=== PATIENT | female | born 1990 | race Caucasian/White ===

== ENCOUNTER 2017-08-25 19:17 | Emergency (ER) | payer OTHER ==
[2017-08-25] MEDS ORDERED: KETOROLAC 30 MG/ML 1 ML VIAL IVP STA (20:11)
[2017-08-25] MEDS ORDERED: SODIUM CHLORIDE 0.9% 1,000 ML IV STA (20:11)
[2017-08-25] MEDS ORDERED: ONDANSETRON 4 MG/2 ML VIAL IVP STA (20:11)
[2017-08-25 20:43] LABS: Basophils % (A) 0 %; Eosinophils # (A) 0.1 k/uL (0-0.7); Eosinophils % (A) 1 %; HCT 39.8 % (34.0-46.0); HGB 13.1 gm/dL (11.4-16.0); Lymphocytes # (A) 3.2 k/uL (1.0-4.8); Lymphocytes % (A) 24 %; MCH 29.5 pg (25.0-35.0); MCV 89.4 fL (80.0-100.0); Mean Platelet Volume 7.8; Monocytes # (A) 0.8 k/uL (0-1.0); Monocytes % (A) 6 %; Neutrophils # (A) 9.2 k/uL (1.3-7.7); Neutrophils % (A) 68 %; Platelet Count 195 k/uL (150-450); RBC 4.45 m/uL (3.80-5.40); RDW 13.9 % (11.5-15.5); WBC 13.5 k/uL (3.8-10.6)
[2017-08-25 20:53] LABS: ALT 116 U/L (9-52); AST 38 U/L (14-36); Albumin 4.3 g/dL (3.5-5.0); Alkaline Phosphatase 68 U/L (38-126); Amylase 37 U/L (30-110); Anion Gap 12 mmol/L; Blood Urea Nitrogen 11 mg/dL (7-17); Calcium 9.5 mg/dL (8.4-10.2); Carbon Dioxide 27 mmol/L (22-30); Chloride 102 mmol/L (98-107); Glucose 92 mg/dL (74-99); Lipase 70 U/L (23-300); Potassium 3.5 mmol/L (3.5-5.1); Sodium 141 mmol/L (137-145); Total Bilirubin 0.6 mg/dL (0.2-1.3); Total Protein 7.3 g/dL (6.3-8.2)
--- NOTE | 2017-08-25 21:17 | ED ---
Abdominal Pain HPI - General Chief Complaint: Abdominal Pain Stated Complaint: abdominal pain Time Seen by Provider: 08/25/17 20:04 Source: patient, RN notes reviewed Mode of arrival: ambulatory Limitations: no limitations - History of Present Illness Initial Comments: This is a 27-year-old female who presents to the emergency department with chief complaint of abdominal pain. Patient states that Saturday morning she had episodes of vomiting. She states that she then developed abdominal pain. She states the abdominal pain is located in the right lower quadrant and is sharp in nature. She states that she has not had any more episodes of vomiting since Saturday but does admit to nausea. Patient states that she has had episodes like this in the past. Denies any fevers or chills, diarrhea or constipation, dysuria or hematuria, shortness of breath or chest pain. Patient denies any previous abdominal surgeries. 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 Patient states that she has no concern for , stating that her last menstrual period was 8 days ago and she finished 4 days ago. - Related Data Home Medications Medication Instructions Recorded Confirmed Ibuprofen [Motrin Ib] 400 mg PO Q6H PRN 08/25/17 08/25/17 Methadone [Dolophine] 90 mg PO QAM 08/25/17 08/25/17 Pepto-Bismol Tablets 1 tab PO ONCE PRN 08/25/17 08/25/17 Previous Rx's Medication Instructions Recorded Ciprofloxacin HCl 500 mg PO BID 7 Days #14 tab 08/25/17 metroNIDAZOLE [Flagyl] 500 mg PO TID #21 tab 08/25/17 Allergies Allergy/AdvReac Type Severity Reaction Status Date / Time No Known Allergies Allergy Verified 08/25/17 20:41 Review of Systems ROS Statement: Those systems with pertinent positive or pertinent negative responses have been documented in the HPI. ROS Other: All systems not noted in ROS Statement are negative. Past Medical History Past Medical History: No Reported History Additional Past Medical History / Comment(s): post depression History of Any Multi-Drug Resistant Organisms: None Reported Additional Past Surgical History / Comment(s): Colposcopy Past Anesthesia/Blood Transfusion Reactions: No Reported Reaction Past Psychological History: ADD/ADHD Smoking Status: Current every day smoker Past Alcohol Use History: None Reported Past Drug Use History: None Reported General Exam - General Exam Comments Initial Comments: General: Awake and alert, well-developed; in no apparent distress. HEENT: Head atraumatic, normocephalic. Pupils are equal, round and reactive to light. Extraocular movements intact. Oropharynx moist without erythema or exudate. Neck: Supple. Normal ROM. Cardiovascular: Regular rate and rhythm. No murmurs, rubs or gallops. Chest symmetrical. Respiratory: Lungs clear to auscultation bilaterally. No wheezes, rales or rhonchi. Normal respiratory effort with no use of accessory muscles. Abdomen: Soft and non-distended. There is tenderness on palpation of right lower quadrant with rebound and guarding. Normal bowel sounds in all 4 quadrants. Musculoskeletal: Normal ROM, no tenderness bilateral upper and lower extremities. Ambulating normally. Skin: [place], warm and dry without rashes or lesions. Neurological: Alert and oriented x3. CN II-XII grossly intact. Speech is fluent and answers are appropriate. No focal neuro deficits. Psychiatric: Normal mood and affect. No overt signs of depression or anxiety noted. Limitations: no limitations Course Vital Signs 08/25/17 19:59 Temperature 98.9 F Pulse Rate 82 Respiratory 20 Rate Blood Pressure 140/99 O2 Sat by Pulse 99 Oximetry Medical Decision Making - Medical Decision Making This is a 27-year-old female who presents to the emergency department with chief complaint of abdominal pain. Patient states that on Saturday she began having episodes of vomiting. Yesterday she developed a sharp pain in her right lower quadrant. On presentation to the emergency department, patient's vital signs are stable and she was afebrile. On physical examination, patient is tender with guarding and rebound of the right lower quadrant. She has a slightly elevated white blood cell count of 13.5 with a left shift. Computed tomography scan revealed evidence for mild edema of the small bowel consistent with a nonspecific enteritis. No evidence for an acute appendicitis. Patient is in no acute distress and will be discharged home. She'll be prescribed Cipro and Flagyl. Return parameters were discussed. Patient is in agreement with plan and voices understanding. All questions were answered. - Lab Data Result diagrams: 08/25/17 20:31 08/25/17 20:31 Lab Results 08/25/17 08/25/17 08/25/17 Range/Units 20:31 20:31 21:10 WBC 13.5 H (3.8-10.6) k/uL RBC 4.45 (3.80-5.40) m/uL Hgb 13.1 (11.4-16.0) gm/dL Hct 39.8 (34.0-46.0) % MCV 89.4 (80.0-100.0) fL MCH 29.5 (25.0-35.0) pg MCHC 33.0 (31.0-37.0) g/dL RDW 13.9 (11.5-15.5) % Plt Count 195 (150-450) k/uL Neutrophils % 68 % Lymphocytes % 24 % Monocytes % 6 % Eosinophils % 1 % Basophils % 0 % Neutrophils # 9.2 H (1.3-7.7) k/uL Lymphocytes # 3.2 (1.0-4.8) k/uL Monocytes # 0.8 (0-1.0) k/uL Eosinophils # 0.1 (0-0.7) k/uL Basophils # 0.0 (0-0.2) k/uL Sodium 141 (137-145) mmol/L Potassium 3.5 (3.5-5.1) mmol/L Chloride 102 (98-107) mmol/L Carbon Dioxide 27 (22-30) mmol/L Anion Gap 12 mmol/L BUN 11 (7-17) mg/dL Creatinine 0.80 (0.52-1.04) mg/dL Est GFR (MDRD) Af Amer >60 (>60 ml/min/1.73 sqM) Est GFR (MDRD) Non-Af >60 (>60 ml/min/1.73 sqM) Glucose 92 (74-99) mg/dL Calcium 9.5 (8.4-10.2) mg/dL Total Bilirubin 0.6 (0.2-1.3) mg/dL AST 38 H (14-36) U/L ALT 116 H (9-52) U/L Alkaline Phosphatase 68 (38-126) U/L Total Protein 7.3 (6.3-8.2) g/dL Albumin 4.3 (3.5-5.0) g/dL Amylase 37 (30-110) U/L Lipase 70 (23-300) U/L Urine Color Urine Appearance (Clear) Urine pH (5.0-8.0) Ur Specific [place] (1.001-1.035) Urine Protein (Negative) Urine Glucose (UA) (Negative) Urine Ketones (Negative) Urine Blood (Negative) Urine Nitrite (Negative) Urine Bilirubin (Negative) Urine Urobilinogen (<2.0) mg/dL Ur Leukocyte Esterase (Negative) Urine WBC (0-5) /hpf Ur Squamous Epith Cells (0-4) /hpf Urine Mucus (None) /hpf Urine HCG, Qual Not Detected (Not Detectd) 08/25/17 Range/Units 21:10 WBC (3.8-10.6) k/uL RBC (3.80-5.40) m/uL Hgb (11.4-16.0) gm/dL Hct (34.0-46.0) % MCV (80.0-100.0) fL MCH (25.0-35.0) pg MCHC (31.0-37.0) g/dL RDW (11.5-15.5) % Plt Count (150-450) k/uL Neutrophils % % Lymphocytes % % Monocytes % % Eosinophils % % Basophils % % Neutrophils # (1.3-7.7) k/uL Lymphocytes # (1.0-4.8) k/uL Monocytes # (0-1.0) k/uL Eosinophils # (0-0.7) k/uL Basophils # (0-0.2) k/uL Sodium (137-145) mmol/L Potassium (3.5-5.1) mmol/L Chloride (98-107) mmol/L Carbon Dioxide (22-30) mmol/L Anion Gap mmol/L BUN (7-17) mg/dL Creatinine (0.52-1.04) mg/dL Est GFR (MDRD) Af Amer (>60 ml/min/1.73 sqM) Est GFR (MDRD) Non-Af (>60 ml/min/1.73 sqM) Glucose (74-99) mg/dL Calcium (8.4-10.2) mg/dL Total Bilirubin (0.2-1.3) mg/dL AST (14-36) U/L ALT (9-52) U/L Alkaline Phosphatase (38-126) U/L Total Protein (6.3-8.2) g/dL Albumin (3.5-5.0) g/dL Amylase (30-110) U/L Lipase (23-300) U/L Urine Color Yellow Urine Appearance Clear (Clear) Urine pH 5.5 (5.0-8.0) Ur Specific [place] 1.023 (1.001-1.035) Urine Protein Negative (Negative) Urine Glucose (UA) Negative (Negative) Urine Ketones Negative (Negative) Urine Blood Negative (Negative) Urine Nitrite Negative (Negative) Urine Bilirubin Negative (Negative) Urine Urobilinogen 4.0 (<2.0) mg/dL Ur Leukocyte Esterase Trace H (Negative) Urine WBC 2 (0-5) /hpf Ur Squamous Epith Cells 2 (0-4) /hpf Urine Mucus Many H (None) /hpf Urine HCG, Qual (Not Detectd) - Radiology Data Radiology results: report reviewed X-ray KUB impression: Nonacute abdomen. CT abdomen and pelvis with contrast impression: There is distal small bowel edema consistent with nonspecific enteritis. This could relate to Crohn's disease. Normal appendix. Mild free fluid in the pelvis. Normal posterior appendix. Disposition Clinical Impression: Enteritis Disposition: HOME SELF-CARE Condition: Good Instructions: Enteritis (ED) Additional Instructions: Please take medications as prescribed. Please follow up with primary care provider within 1-2 days. Return to emergency department if symptoms should worsen or any concerns arise. Prescriptions: Ciprofloxacin HCl 500 mg PO BID 7 Days #14 tab metroNIDAZOLE [Flagyl] 500 mg PO TID #21 tab Referrals: None,Stated [Primary Care Provider] - 1-2 days Time of Disposition: 23:28
[2017-08-25 21:23] LABS: Appearance,Urine Clear (Clear); Bilirubin,Urine Negative (Negative); Blood,Urine Negative (Negative); Color,Urine Yellow; Glucose,Urine (UA) Negative (Negative); Ketones,Urine Negative (Negative); Leukocyte Esterase,Urine Trace (Negative); Mucus,Urine Many /hpf; PH, Urine 5.5 (5.0-8.0); Protein,Urine Negative (Negative); Specific Gravity,Urine 1.023 (1.001-1.035); Squamous Epithelial Cell,Urine 2 /hpf (0-4); WBC,Urine 2 /hpf (0-5)
--- NOTE | 2017-08-25 21:55 | XR ---
EXAMINATION TYPE: XR KUB DATE OF EXAM: 08/25/2017 COMPARISON: NONE HISTORY: Vomiting TECHNIQUE: 2 views FINDINGS: There is no sign of intestinal obstruction or pneumoperitoneum. Fecal pattern is normal. Shannon ng bases are clear. There are no pathologic calcifications over the kidneys. Bony structures appear i ntact. IMPRESSION: Nonacute abdomen.
[2017-08-25] MEDS ORDERED: RX INFO: IV CONTRAST WAS GIVEN 1 EACH MISC MISCELLANE PRN (22:00)
[2017-08-25] MEDS ORDERED: ACETAMINOPHEN IV (For NPO) 1,000 MG in EMPTY BAG 1 BAG IVPB STA (22:24)
--- NOTE | 2017-08-25 22:52 | CT ---
EXAMINATION TYPE: CT abdomen pelvis w con DATE OF EXAM: 08/25/2017 COMPARISON: NONE HISTORY: No prior, RLQ pain and vomiting CT DLP: 440.80 mGycm Automated exposure control for dose reduction was used. TECHNIQUE: Helical acquisition of images was performed from the lung bases through the pelvis. CONTRAST: Performed without Oral Contrast and with IV Contrast, patient injected with 100 mL of Omnipaque 300. FINDINGS: Lung bases are clear. There is no pleural effusion. Heart size is normal. Liver spleen pancreas gallbladder appear normal. Bile ducts are not dilated. There is no adrenal mass. Kidneys have normal size and contour. There is no hydronephrosis. Ureters a re not dilated. There is mild free fluid in the pelvis. I see no sign of a thickened appendix. Appendix appears withi n normal limits. There is mild edema involving a distal loop of small bowel in the right lower quadrant. There is mild wall thickening. There is no evidence of a bowel obstruction. Bladder distends smoothly. Uterus is anteverted. Fecal pattern appears normal. I see no bony destruct seda process. IMPRESSION: THERE IS DISTAL SMALL BOWEL EDEMA CONSISTENT WITH NONSPECIFIC ENTERITIS. THIS COULD RELATE TO CROHN'S DISEASE. NORMAL APPENDIX. MILD FREE FLUID IN THE PELVIS. NORMAL POSTERIOR APPENDIX.
[2017-08-25 23:29] VITALS: BP 115/57; PULSE 68; RESP 18; TEMP 97.4
== END 2017-08-25 23:44 | disposition home or self-care (01) ==
LOC: EC 19:17
DX: K52.9 Noninfective gastroenteritis and colitis, unspecified (principal); D72.829 Elevated white blood cell count, unspecified; F17.200 Nicotine dependence, unspecified, uncomplicated; Z79.891 Long term (current) use of opiate analgesic
CPT/HCPCS: 36415; 80053; 82150; 83690; 85025; 81001; 81025; 87086; 74018; 74177; 99284; 96365; 96375 ×2; 96361; J2405; J1885; Q9967; J0131

== ENCOUNTER 2018-06-09 11:13 | Inpatient (IN) | payer OTHER ==
[2018-06-09] MEDS ORDERED: METHYLERGONOVINE 0.2 MG/ML 1 ML AMP IM PRN (11:42)
[2018-06-09] MEDS ORDERED: TERBUTALINE 1 MG/ML VIAL SQ PRN (11:42)
[2018-06-09] MEDS ORDERED: CARBOPROST TROMETHAMINE 250 MCG/ML 1 ML AMP IM PRN (11:42)
[2018-06-09] MEDS ORDERED: LIDOCAINE 0.5% (PF) 5 MG/ML (50 ML SDV) SQ PRN (11:42)
[2018-06-09] MEDS ORDERED: OXYTOCIN 10 UNIT/ML 1 ML VIAL IM PRN (11:42)
[2018-06-09] MEDS ORDERED: LACTATED RINGERS 1,000 ML IV SCH (11:45)
[2018-06-09 12:06] VITALS: BMI 29.2
[2018-06-09 12:19] LABS: Basophils % (A) 0 %; Eosinophils # (A) 0.1 k/uL (0-0.7); Eosinophils % (A) 1 %; HCT 32.3 % (34.0-46.0); HGB 10.5 gm/dL (11.4-16.0); Lymphocytes # (A) 1.7 k/uL (1.0-4.8); Lymphocytes % (A) 14 %; MCH 29.8 pg (25.0-35.0); MCHC 32.5 g/dL (31.0-37.0); MCV 91.7 fL (80.0-100.0); Monocytes # (A) 0.5 k/uL (0-1.0); Monocytes % (A) 4 %; Neutrophils # (A) 9.6 k/uL (1.3-7.7); Neutrophils % (A) 79 %; Platelet Count 228 k/uL (150-450); RBC 3.53 m/uL (3.80-5.40); RDW 15.1 % (11.5-15.5); WBC 12.2 k/uL (3.8-10.6)
[2018-06-09] MEDS ORDERED: LANOLIN CREAM 5 GM TUBE TOPICAL PRN (13:02)
[2018-06-09] MEDS ORDERED: diphenhydrAMINE 50 MG/ML 1 ML VIAL IVP PRN ×2 (13:02)
[2018-06-09] MEDS ORDERED: WITCH HAZEL 1 EACH MED..PAD TOPICAL PRN (13:02)
[2018-06-09] MEDS ORDERED: HYDROCORTISONE 2.5% RECTAL CREAM 30 GM TUBE RECTAL PRN (13:02)
[2018-06-09] MEDS ORDERED: BENZOCAINE/MENTHOL SPRAY 1 GM/SPRAY AEROSOL TOPICAL PRN (13:02)
[2018-06-09] MEDS ORDERED: diphenhydrAMINE 25 MG CAP PO PRN (13:02)
[2018-06-09] MEDS ORDERED: diphenhydrAMINE 50 MG CAP PO PRN (13:02)
--- NOTE | 2018-06-09 13:02 | P.HPOB ---
History of Present Illness H&P Date: 06/09/18 Chief Complaint: IUP @ 38 5/7 weeks, active labor This is a 28yo that presents with c/o ctx that started this am around 4 am, and are now 3-5 minutes apart. she denies LOF,VB, and notes good FM. she did have late care, but has been good at coming for appointment since she started care with myself, just prior to 28 weeks of gestation.. she is on methadone 100mg daily. she has been consistent with this dose. blood work revealed a blood type of B+, rubella immune, hepatitis B surface antigen negative, HIV negative, RPR nonreactive, GBS negative. Review of Systems Constitutional: Denies chills, Denies fatigue, Denies fever Ears, nose, mouth and throat: Denies headache Cardiovascular: Reports edema Respiratory: Denies cough, Denies dyspnea Gastrointestinal: Denies constipation, Denies diarrhea, Denies nausea, Denies vomiting Genitourinary: Reports Past Medical History Past Medical History: No Reported History Additional Past Medical History / Comment(s): post depression History of Any Multi-Drug Resistant Organisms: None Reported Additional Past Surgical History / Comment(s): Colposcopy Past Anesthesia/Blood Transfusion Reactions: No Reported Reaction Smoking Status: Current every day smoker Medications and Allergies Home Medications Medication Instructions Recorded Confirmed Type Methadone [Dolophine] 100 mg PO QAM 08/25/17 06/03/18 History Allergies Allergy/AdvReac Type Severity Reaction Status Date / Time No Known Allergies Allergy Verified 06/09/18 11:42 Exam Osteopathic Statement: *. No significant issues noted on an osteopathic structural exam other than those noted in the History and Physical/Consult. Intake and Output 06/08/18 06/09/18 06/09/18 22:59 06:59 14:59 Other: Weight 77.111 kg targeted physical exam done on this date this is a well nourished well developed female in active labor. non labored breathing is noted, but is breathing through ctx. heart has a regular rate and rhythming. abdomen is gravid and appropriate for GA. cervix is 8/100/-1 intact membranes. FHTs are reactive and she is fabienne every 3 mins Results Result Diagrams: 06/09/18 11:30 Assessment and Plan (1) Term Current Visit: Yes Status: Acute Code(s): Z34.80 - ENCOUNTER FOR SUPRVSN OF NORMAL , UNSP TRIMESTER SNOMED Code(s): 89447143 (2) Rh negative status during Current Visit: Yes Status: Acute Code(s): O09.899 - SUPERVISION OF OTHER HIGH RISK PREGNANCIES, UNSP TRIMESTER; Z67.91 - UNSPECIFIED BLOOD TYPE, RH NEGATIVE SNOMED Code(s): 111000224 (3) Methadone dependence Current Visit: Yes Status: Acute Code(s): F11.20 - OPIOID DEPENDENCE, UNCOMPLICATED SNOMED Code(s): 598652706 (4) Limited care Current Visit: Yes Status: Acute Code(s): O09.30 - SUPRVSN OF PREG W INSUFFICIENT ANTENAT CARE, UNSP TRIMESTER SNOMED Code(s): 681244096 Plan: we will admit to labor and delivery for expectant management. Given her advanced cervical dilation on admission anticipate spontaneous vaginal delivery quickly.
--- NOTE | 2018-06-09 13:07 | P.PROBDLV ---
Vaginal Delivery Note - . Vaginal Delivery Note: this is a very pleasant 28-year-old 5 para 3013 that presented to labor and delivery at 38-3/7 weeks with complaints of regular painful contractions that started early this morning. Patient denied vaginal bleeding, loss of fluid at that time. Patient was noted to be 8 cm on initial cervical exam. Patient was admitted to labor and delivery progressed to complete began pushing and had a normal spontaneous vaginal delivery of a viable female at 1232 , weight of 6 lbs. 12 oz. with Apgars of 7 and 9 at one and 5 minutes respectively. The placenta was then doubly clamped and cut a scant amount of cord blood was taken, the placenta was then delivered spontaneously intact with a three-vessel cord. On inspection the patient's vaginal vault no lacerations were noted. infant was taken to special care nursery for retractions and assessment. Next Patient tolerated delivery well and are resting comfortably.
[2018-06-09] MEDS ORDERED: OXYTOCIN 20 UNITS/1000 ML NS 1,000 ML IV SCH (13:15)
[2018-06-09] MEDS: IBUPROFEN 600 MG TAB PO PRN ×2 (13:30→19:31)
[2018-06-09] MEDS: ACETAMINOPHEN TAB 325 MG TAB PO PRN ×2 (16:13→23:49)
[2018-06-09] MEDS: SENNOSIDES-DOCUSATE SODIUM 1 EACH TAB PO SCH (21:14)
[2018-06-09] MEDS: SIMETHICONE 80 MG CHEWABLE PO PRN (21:15)
[2018-06-10] MEDS: IBUPROFEN 600 MG TAB PO PRN ×3 (06:40→20:11)
[2018-06-10 07:00] LABS: Basophils % (A) 0 %; Eosinophils # (A) 0.1 k/uL (0-0.7); Eosinophils % (A) 1 %; HCT 28.3 % (34.0-46.0); HGB 9.2 gm/dL (11.4-16.0); Lymphocytes # (A) 2.5 k/uL (1.0-4.8); Lymphocytes % (A) 28 %; MCH 30.2 pg (25.0-35.0); MCHC 32.7 g/dL (31.0-37.0); MCV 92.4 fL (80.0-100.0); Monocytes # (A) 0.6 k/uL (0-1.0); Monocytes % (A) 6 %; Neutrophils # (A) 5.7 k/uL (1.3-7.7); Neutrophils % (A) 63 %; Platelet Count 164 k/uL (150-450); RBC 3.06 m/uL (3.80-5.40); RDW 14.8 % (11.5-15.5)
--- NOTE | 2018-06-10 08:54 | P.PNOBGVD ---
Subjective - Subjective Principal diagnosis: PPD 1 Interval history: Patient has done well overnight. She is ambulating and voiding without difficulty she is tolerating a regular diet without nausea or vomiting. She denies concerns this morning. Patient reports: Reports appetite normal, Reports voiding normally, Reports pain well controlled, Reports ambulating normally [place]: doing well (in the nursery, ), bottle feeding Objective - Latest Vital Signs Latest vital signs: Vital Signs Temp Pulse Resp BP Pulse Ox 06/10/18 08:00 97.5 F L 66 15 148/78 06/10/18 00:00 98.1 F 67 16 133/87 06/09/18 20:00 98.1 F 65 16 132/71 06/09/18 16:00 98.2 F 70 16 119/73 06/09/18 14:52 72 16 123/64 06/09/18 14:22 76 16 117/64 06/09/18 13:52 96.8 F L 74 16 101/52 06/09/18 13:37 51 L 16 124/64 06/09/18 13:22 69 16 113/63 100 06/09/18 13:07 86 16 113/61 06/09/18 12:52 96.1 F L 87 16 118/57 100 06/09/18 11:39 97.2 F L 72 16 134/64 100 Intake and Output 06/09/18 06/10/18 06/10/18 22:59 06:59 14:59 Other: # Voids 1 1 - Exam Extremities: Present: normal Abdomen: Present: normal appearance, soft Uterus: Present: normal, firm - Labs Labs: Abnormal Lab Results - Last 24 Hours (Table) 06/09/18 06/10/18 Range/Units 11:30 06:33 WBC 12.2 H (3.8-10.6) k/uL RBC 3.53 L 3.06 L (3.80-5.40) m/uL Hgb 10.5 L 9.2 L (11.4-16.0) gm/dL Hct 32.3 L 28.3 L (34.0-46.0) % Neutrophils # 9.6 H (1.3-7.7) k/uL Assessment and Plan (1) Term Current Visit: Yes Status: Acute Code(s): Z34.80 - ENCOUNTER FOR SUPRVSN OF NORMAL , UNSP TRIMESTER SNOMED Code(s): 50879137 (2) Rh negative status during Current Visit: Yes Status: Acute Code(s): O09.899 - SUPERVISION OF OTHER HIGH RISK PREGNANCIES, UNSP TRIMESTER; Z67.91 - UNSPECIFIED BLOOD TYPE, RH NEGATIVE SNOMED Code(s): 652658520 (3) Methadone dependence Current Visit: Yes Status: Acute Code(s): F11.20 - OPIOID DEPENDENCE, UNCOMPLICATED SNOMED Code(s): 086122752 (4) Limited care Current Visit: Yes Status: Acute Code(s): O09.30 - SUPRVSN OF PREG W INSUFFICIENT ANTENAT CARE, UNSP TRIMESTER SNOMED Code(s): 461799891 (5) Status post normal vaginal delivery Current Visit: Yes Status: Acute Code(s): FUW3849 - SNOMED Code(s): 454753198 Plan: We'll continue routine care.
[2018-06-10] MEDS ORDERED: METHADONE 5 MG TAB PO SCH (09:00)
[2018-06-10] MEDS: METHADONE 10 MG TAB PO SCH (09:09)
[2018-06-10] MEDS: SENNOSIDES-DOCUSATE SODIUM 1 EACH TAB PO SCH ×2 (10:34→20:12)
[2018-06-10] MEDS: ACETAMINOPHEN TAB 325 MG TAB PO PRN ×2 (17:01→23:01)
[2018-06-10] MEDS: SIMETHICONE 80 MG CHEWABLE PO PRN (17:01)
[2018-06-11] MEDS: IBUPROFEN 600 MG TAB PO PRN (08:08)
[2018-06-11] MEDS: SENNOSIDES-DOCUSATE SODIUM 1 EACH TAB PO SCH (08:09)
[2018-06-11] MEDS: METHADONE 10 MG TAB PO SCH (09:05)
[2018-06-11 09:20] VITALS: BP 128/70; PULSE 62; RESP 18; TEMP 98.1
--- NOTE | 2018-06-11 12:25 | P.DS ---
Providers Date of admission: 06/09/18 11:13 Expected date of discharge: 06/11/18 Attending physician: Madison Bauer Primary care physician: Stated None - Discharge Diagnosis(es) (1) Term Current Visit: Yes Status: Acute (2) Rh negative status during Current Visit: Yes Status: Acute (3) Methadone dependence Current Visit: Yes Status: Acute (4) Limited care Current Visit: Yes Status: Acute (5) Status post normal vaginal delivery Current Visit: Yes Status: Acute Hospital Course: This is a very pleasant 28-year-old 5 para 2113 at 38-3/7 weeks that presented to labor and delivery in active labor. Patient was noted to be 8 cm on admission. Patient progressed quickly to complete began pushing and had a normal spontaneous vaginal delivery of a viable female infant at 1232, weight of 6 lbs. 12 oz. with Apgars of 7 and 9 at one and 5 minutes respectively. Patient's course is complicated by methadone use and late presentation for care just prior to 28 weeks. Patient has a history of preeclampsia in her prior pregnancies but blood pressures remained stable with this . Patient's course has been uneventful. She is ambulating and voiding without difficulty. She is tolerating a regular diet without nausea or vomiting. She denies any concerns and is ready for discharge home on this day #2. Patient Condition at Discharge: Good Plan - Discharge Summary Discharge Rx Participant: No New Discharge Prescriptions: No Action Methadone [Dolophine] 100 mg PO QAM Discharge Medication List Methadone [Dolophine] 100 mg PO QAM 08/25/17 [History] Follow up Appointment(s)/Referral(s): Madison Bauer DO [Doctor of Osteopathic Medicine] - 4 Weeks Patient Instructions/Handouts: Vaginal Delivery (DC), Vaginal Delivery (GEN)
== END 2018-06-11 17:52 | disposition home or self-care (01) | DRG 806 ==
LOC: 4FBP 11:13
PROVIDERS: ADMIT Obstetrics & Gynecology Obstetrics; ATTEND Obstetrics & Gynecology Obstetrics
PROC: 10E0XZZ Delivery of Products of Conception, External Approach (ICD-10-PCS; principal; 2018-06-09)
PROC: 10907ZC Drainage of Amniotic Fluid, Therapeutic from Products of Conception, Via Natural or Artificial Opening (ICD-10-PCS; principal; 2018-06-09)
DX: O99.324 Drug use complicating childbirth (principal); F11.20 Opioid dependence, uncomplicated; Z37.0 Single live birth; O99.334 Smoking (tobacco) complicating childbirth; F17.200 Nicotine dependence, unspecified, uncomplicated; Z3A.38 38 weeks gestation of pregnancy; O26.893 Other specified pregnancy related conditions, third trimester; Z67.91 Unspecified blood type, Rh negative
CPT/HCPCS: 85025; 86850; 86900; 86901; 88307

== ENCOUNTER 2018-06-29 15:05 | Emergency (ER) | payer OTHER ==
[2018-06-29 15:09] VITALS: BP 132/69; PULSE 77; RESP 20; TEMP 97.6
[2018-06-29] MEDS ORDERED: IBUPROFEN 600 MG TAB PO STA (15:31)
--- NOTE | 2018-06-29 15:32 | ED ---
General Adult HPI - General Chief complaint: Dental/Oral Stated complaint: tooth ache Time Seen by Provider: 06/29/18 15:14 Source: patient, RN notes reviewed Mode of arrival: ambulatory Limitations: no limitations - History of Present Illness Initial comments: 28-year-old female presents to the emergency department for a chief complaint of dental pain. Patient states his pain has been on and off for the past few months. She states the pain worsened in the past couple days. Patient states she feels as if the left side of her face is minimally swollen. Patient states she has seen a dentist in the recommend removing all of her teeth putting in dentures but she refused. She states she has another appointment in the next 2 weeks. She denies fevers or chills. She denies subungual swelling or pain. She denies any difficulty swallowing or handling secretions. Patient has no other complaints at this time including shortness of breath, chest pain, abdominal pain, nausea or vomiting, headache, or visual changes. - Related Data Home Medications Medication Instructions Recorded Confirmed Methadone [Dolophine] 100 mg PO QAM 08/25/17 06/03/18 Previous Rx's Medication Instructions Recorded Ibuprofen [Motrin] 600 mg PO Q8HR PRN #20 tab 06/29/18 Penicillin V Potassium [Pen Vee K] 500 mg PO Q6H 10 Days tablet 06/29/18 Allergies Allergy/AdvReac Type Severity Reaction Status Date / Time No Known Allergies Allergy Verified 06/29/18 15:09 Review of Systems ROS Statement: Those systems with pertinent positive or pertinent negative responses have been documented in the HPI. ROS Other: All systems not noted in ROS Statement are negative. Past Medical History Past Medical History: No Reported History Additional Past Medical History / Comment(s): post depression History of Any Multi-Drug Resistant Organisms: None Reported Additional Past Surgical History / Comment(s): Colposcopy Past Anesthesia/Blood Transfusion Reactions: No Reported Reaction Past Psychological History: ADD/ADHD Smoking Status: Current every day smoker Past Alcohol Use History: None Reported Past Drug Use History: None Reported General Exam Limitations: no limitations General appearance: alert, in no apparent distress Head exam: Present: atraumatic, normocephalic, normal inspection Eye exam: Present: normal appearance, PERRL, EOMI. Absent: scleral icterus, conjunctival injection, periorbital swelling ENT exam: Present: mucous membranes moist. Absent: normal oropharynx (Poor dentition. Patient has a fractured tooth 13. No abscess over tooth 13 or surrounding teeth. Patient also has a small abscess over tooth 9 as well as a fracture in tooth 9.) Neck exam: Present: normal inspection, full ROM. Absent: tenderness, meningismus, lymphadenopathy, other (No sublingual edema noted, full range of motion of mandible) Respiratory exam: Present: normal lung sounds bilaterally. Absent: respiratory distress, wheezes, rales, rhonchi, stridor Cardiovascular Exam: Present: regular rate, normal rhythm, normal heart sounds. Absent: systolic murmur, diastolic murmur, rubs, gallop, clicks Neurological exam: Present: alert, oriented X3, CN II-XII intact Psychiatric exam: Present: normal affect, normal mood Course Vital Signs 06/29/18 15:07 Temperature 97.6 F Pulse Rate 77 Respiratory 20 Rate Blood Pressure 132/69 O2 Sat by Pulse 100 Oximetry Medical Decision Making - Medical Decision Making 28-year-old female presents for dental pain. This pain has been intermittent over the past few months but worsened in the past several days. On exam patient does have a fracture of tooth 8 and 13. There is a small abscess above tooth 18. This was drained with an 18-gauge needle. No significant facial edema noted. Patient was given penicillin. Patient does have an appointment in the next 2 weeks with the dentist. She will try to call to get in earlier. She will return here if she has any worsening symptoms. Disposition Clinical Impression: Dental abscess Disposition: HOME SELF-CARE Condition: Good Instructions: Dental Abscess (ED) Additional Instructions: Take Motrin and Tylenol for pain. Use ice over the affected area for discomfort. Please take antibiotic as directed. Please follow-up with dentist as soon as possible. Return if you have any worsening symptoms. Prescriptions: Ibuprofen [Motrin] 600 mg PO Q8HR PRN #20 tab PRN Reason: Pain Penicillin V Potassium [Pen Vee K] 500 mg PO Q6H 10 Days tablet Is patient prescribed a controlled substance at d/c from ED?: No Referrals: Prabha Tang MD [STAFF PHYSICIAN] - 1-2 days Time of Disposition: 15:31
== END 2018-06-29 15:47 | disposition home or self-care (01) ==
LOC: EC 15:05
DX: K04.7 Periapical abscess without sinus (principal); S02.5XXA Fracture of tooth (traumatic), initial encounter for closed fracture; F17.200 Nicotine dependence, unspecified, uncomplicated; Z79.891 Long term (current) use of opiate analgesic; X58.XXXA Exposure to other specified factors, initial encounter
CPT/HCPCS: 41800; 99282

== ENCOUNTER 2020-07-30 00:44 | Inpatient (IN) | payer OTHER ==
[2020-07-30] MEDS ORDERED: SODIUM CHLORIDE 0.9% 1,000 ML IV STA ×2 (01:21)
[2020-07-30] MEDS ORDERED: MORPHINE SULFATE 4 MG/ML SYRINGE IVP STA (01:23)
[2020-07-30] MEDS ORDERED: ONDANSETRON 4 MG/2 ML VIAL IVP STA (01:23)
--- NOTE | 2020-07-30 01:33 | ED ---
General Adult HPI - General Source: patient, EMS Mode of arrival: EMS Limitations: no limitations <Zoya Ibrahim - Last Filed: 07/30/20 03:32> <Himanshu Bach - Last Filed: 08/03/20 07:50> - General Chief complaint: Chest Pain Stated complaint: R side chest pain Time Seen by Provider: 07/30/20 00:50 - History of Present Illness Initial comments: 30 year-old pleasant female patient with past history significant for IV drug use, presents to the emergency department for evaluation of pain to the right side of her chest with breathing. Patient states she has been sick for the last 4 days. Patient states this started with a migraine headache which turned into 2 days of nausea and vomiting with diarrhea. She reports body aches and chills for those two days. Did not check her temperature but believes she had a fever. States that for the last couple of days she has been having a severe sharp pain to the right chest whenever she takes a deep breath. Denies any cough. State she has been unable to get out of bed for the last four days. States she has not been eating or drinking. Reports mild swelling to the lower extremities. Denies any rash. Denies chance of . She also reports dark smelly urine. Patient denies any recent rash, abdominal pain, back pain, numbness, tingling, dizziness, weakness, headache, visual changes, or any other complaints. (Zoya Ibrahim) - Related Data Home Medications Medication Instructions Recorded Confirmed Buprenorphine HCl/Naloxone HCl 1 film SL BID 07/30/20 07/30/20 [Zubsolv 5.7-1.4 mg Tablet Sl] Allergies Allergy/AdvReac Type Severity Reaction Status Date / Time No Known Allergies Allergy Verified 07/30/20 08:19 Review of Systems ROS Other: All systems not noted in ROS Statement are negative. <Zoya Ibrahim - Last Filed: 07/30/20 03:32> ROS Other: All systems not noted in ROS Statement are negative. <Himanshu Bach - Last Filed: 08/03/20 07:50> ROS Statement: Those systems with pertinent positive or pertinent negative responses have been documented in the HPI. Past Medical History Past Medical History: No Reported History, Hypertension Additional Past Medical History / Comment(s): post depression History of Any Multi-Drug Resistant Organisms: None Reported Additional Past Surgical History / Comment(s): Colposcopy Past Anesthesia/Blood Transfusion Reactions: No Reported Reaction Past Psychological History: ADD/ADHD, Anxiety Smoking Status: Current every day smoker Past Alcohol Use History: None Reported Past Drug Use History: Heroin <Zoya Ibrahim M - Last Filed: 07/30/20 03:32> General Exam Limitations: no limitations General appearance: alert, in no apparent distress, other (This is a well developed, well-nourished adult female patient in mild distress related to pain. ) Respiratory exam: Present: normal lung sounds bilaterally, respiratory distress (tachypnea, short gasping breaths). Absent: wheezes, rales, rhonchi, stridor Cardiovascular Exam: Present: regular rate, normal rhythm, normal heart sounds. Absent: systolic murmur, diastolic murmur, rubs, gallop, clicks GI/Abdominal exam: Present: soft, normal bowel sounds. Absent: distended, tenderness, guarding, rebound, rigid Extremities exam: Present: other (Track cordero and ecchymosis noted over varying areas of her arms. ) Neurological exam: Present: alert, oriented X3, CN II-XII intact Psychiatric exam: Present: normal affect, normal mood Skin exam: Present: warm, dry, intact, normal color. Absent: rash <Zoya Ibrahim M - Last Filed: 07/30/20 03:32> Course Vital Signs 07/30/20 07/30/20 07/30/20 00:46 01:55 02:25 Temperature 99.3 F 103.0 F H Pulse Rate 84 87 83 Respiratory 20 40 H 45 H Rate Blood Pressure 92/53 88/45 94/48 O2 Sat by Pulse 99 100 99 Oximetry 07/30/20 07/30/20 07/30/20 02:56 03:36 04:19 Temperature 103.2 F H 101.1 F H 99.9 F H Pulse Rate 87 86 84 Respiratory 45 H 42 H 46 H Rate Blood Pressure 94/40 95/55 84/42 O2 Sat by Pulse 97 95 93 L Oximetry 07/30/20 07/30/20 07/30/20 05:05 06:15 06:39 Temperature 99.1 F Pulse Rate 77 75 78 Respiratory 36 H 24 28 H Rate Blood Pressure 88/40 82/50 85/51 O2 Sat by Pulse 93 L 94 L 95 Oximetry 07/30/20 07/30/20 07/30/20 06:46 06:56 07:00 Temperature Pulse Rate 80 75 77 Respiratory 30 H 24 18 Rate Blood Pressure 91/49 100/47 100/47 O2 Sat by Pulse 95 95 95 Oximetry 07/30/20 07/30/20 07/30/20 07:10 07:20 07:30 Temperature Pulse Rate 76 75 76 Respiratory 18 31 H 27 H Rate Blood Pressure 98/50 89/51 90/48 O2 Sat by Pulse 100 98 Oximetry 07/30/20 07/30/20 07/30/20 07:33 07:40 07:50 Temperature Pulse Rate 75 71 71 Respiratory 24 22 31 H Rate Blood Pressure 90/41 83/42 83/43 O2 Sat by Pulse 100 Oximetry 07/30/20 07/30/20 07/30/20 08:00 08:04 08:18 Temperature 99.1 F Pulse Rate 74 77 Respiratory 18 18 20 Rate Blood Pressure 87/55 O2 Sat by Pulse 98 96 Oximetry 07/30/20 07/30/20 07/30/20 08:30 09:00 09:30 Temperature Pulse Rate 79 74 77 Respiratory 17 18 29 H Rate Blood Pressure 100/53 110/66 111/57 O2 Sat by Pulse 99 95 95 Oximetry 07/30/20 07/30/20 07/30/20 09:31 09:45 10:00 Temperature Pulse Rate 80 90 105 H Respiratory 16 32 H 34 H Rate Blood Pressure 112/58 114/53 104/53 O2 Sat by Pulse 95 93 L 92 L Oximetry Procedures <Zoya Ibrahim - Last Filed: 07/30/20 03:32> - Central Line Placement Right SC Consent Obtained: written consent Patient Placed on Monitor/Pulse Ox: Yes Prep: mask, gown, gloves Central Line Prep: Chlorhexidine scrub Local Anesthesia Used: Lidocaine 1% Central Line Lumen Inserted: triple Bloods Obtained for Lab: Yes Central Line Position: good blood return, all ports aspirated, flushed, capped, sutured in place with nylon Dressing Applied: Tegaderm Patient Tolerated Procedure: well, no complications Complications: none <Himanshu Bach - Last Filed: 08/03/20 07:50> - Procedures Initial comment: Performed ultrasound guided IV insertion to the right upper arm. Patient tolerated procedure well. There was good blood return, flushed easily. No pain. Failed attempt to the left upper arm. (Zoya Ibrahim) Medical Decision Making - Lab Data Result diagrams: 07/30/20 02:05 07/30/20 02:05 - EKG Data -: EKG Interpreted by Me - Radiology Data Radiology results: report reviewed, image reviewed <Zoya Ibrahim - Last Filed: 07/30/20 03:32> - Lab Data Result diagrams: 08/03/20 03:30 08/03/20 03:30 <Himanshu Bach - Last Filed: 08/03/20 07:50> - Medical Decision Making 30-year-old female patient presents to the emergency department today for evaluation of right-sided chest pain, shortness of breath, painful breathing. Upon initial evaluation patient appears pale, is taking short gasping breaths, and seems quite uncomfortable with breathing. BP initially low in the 90s systolic. Oxygen saturation is 99% on room air. She is not tachycardic. Labs are reveiewed and show wbc count of 11.5, neutrophils of 10.2, BUN elevated 27, Creatinine 1.35. COVID-[address] chest shows bilateral pneumonia with possible cavitary lesions and bolus changes. His concerning for septic emboli versus atypical bacterial pneumonia versus atypical viral pneumonia versis COVID-19 pneumonia though her COVID test was negative and she has elevated WBC and neutrophil count. patient was started on Zosyn and vancomycin. We will order pain medications. We will consult infectious disease, pulmonology, and cardiology. Trops will be repeated. I did discuss findings and results with the patient. She is agreeable for admission. Case was discussed in detail with my attending Dr. Bach. (Zoya Ibrahim) I saw this patient in conjunction with the physician compliance assistant. I performed independent history and physical exam. Agree with case management. In addition, I placed a central line to facilitate administration of multiple medications including pressors, IV fluids, and antibiotics. Case was discussed by myself with the cloth bleaching range tender as well as cardiothoracic team. (Himanshu Bach) - Lab Data Lab Results 07/30/20 07/30/20 07/30/20 Range/Units 02:05 02:05 02:05 WBC 11.5 H (3.8-10.6) k/uL RBC 3.89 (3.80-5.40) m/uL Hgb 11.2 L (11.4-16.0) gm/dL Hct 33.7 L (34.0-46.0) % MCV 86.5 (80.0-100.0) fL MCH 28.8 (25.0-35.0) pg MCHC 33.3 (31.0-37.0) g/dL RDW 13.3 (11.5-15.5) % Plt Count 50 L (150-450) k/uL MPV 11.2 Neutrophils % 88 % Lymphocytes % 5 % Monocytes % 4 % Eosinophils % 1 % Basophils % 0 % Neutrophils # 10.2 H (1.3-7.7) k/uL Lymphocytes # 0.6 L (1.0-4.8) k/uL Monocytes # 0.4 (0-1.0) k/uL Eosinophils # 0.1 (0-0.7) k/uL Basophils # 0.0 (0-0.2) k/uL Manual Slide Review Performed PT 11.5 (9.0-12.0) sec INR 1.1 (<1.2) APTT 23.8 (22.0-30.0) sec Sodium 132 L (137-145) mmol/L Potassium 3.8 (3.5-5.1) mmol/L Chloride 96 L (98-107) mmol/L Carbon Dioxide 27 (22-30) mmol/L Anion Gap 9 mmol/L BUN 27 H (7-17) mg/dL Creatinine 1.35 H (0.52-1.04) mg/dL Est GFR (CKD-EPI)AfAm 61 (>60 ml/min/1.73 sqM) Est GFR (CKD-EPI)NonAf 53 (>60 ml/min/1.73 sqM) Glucose 114 H (74-99) mg/dL Plasma Lactic Acid Mekhi (0.7-2.0) mmol/L Calcium 8.6 (8.4-10.2) mg/dL Magnesium 1.8 (1.6-2.3) mg/dL Total Bilirubin 1.1 (0.2-1.3) mg/dL AST 36 (14-36) U/L ALT 26 (4-34) U/L Alkaline Phosphatase 103 (38-126) U/L Troponin I (0.000-0.034) ng/mL Total Protein 6.3 (6.3-8.2) g/dL Albumin 3.0 L (3.5-5.0) g/dL Urine HCG, Qual (Not Detectd) Coronavirus (PCR) (Not Detectd) 07/30/20 07/30/20 07/30/20 Range/Units 02:05 02:05 02:05 WBC (3.8-10.6) k/uL RBC (3.80-5.40) m/uL Hgb (11.4-16.0) gm/dL Hct (34.0-46.0) % MCV (80.0-100.0) fL MCH (25.0-35.0) pg MCHC (31.0-37.0) g/dL RDW (11.5-15.5) % Plt Count (150-450) k/uL MPV Neutrophils % % Lymphocytes % % Monocytes % % Eosinophils % % Basophils % % Neutrophils # (1.3-7.7) k/uL Lymphocytes # (1.0-4.8) k/uL Monocytes # (0-1.0) k/uL Eosinophils # (0-0.7) k/uL Basophils # (0-0.2) k/uL Manual Slide Review PT (9.0-12.0) sec INR (<1.2) APTT (22.0-30.0) sec Sodium (137-145) mmol/L Potassium (3.5-5.1) mmol/L Chloride (98-107) mmol/L Carbon Dioxide (22-30) mmol/L Anion Gap mmol/L BUN (7-17) mg/dL Creatinine (0.52-1.04) mg/dL Est GFR (CKD-EPI)AfAm (>60 ml/min/1.73 sqM) Est GFR (CKD-EPI)NonAf (>60 ml/min/1.73 sqM) Glucose (74-99) mg/dL Plasma Lactic Acid Mekhi 2.7 H* (0.7-2.0) mmol/L Calcium (8.4-10.2) mg/dL Magnesium (1.6-2.3) mg/dL Total Bilirubin (0.2-1.3) mg/dL AST (14-36) U/L ALT (4-34) U/L Alkaline Phosphatase (38-126) U/L Troponin I <0.012 (0.000-0.034) ng/mL Total Protein (6.3-8.2) g/dL Albumin (3.5-5.0) g/dL Urine HCG, Qual Not Detected (Not Detectd) Coronavirus (PCR) (Not Detectd) 07/30/20 Range/Units 02:28 WBC (3.8-10.6) k/uL RBC (3.80-5.40) m/uL Hgb (11.4-16.0) gm/dL Hct (34.0-46.0) % MCV (80.0-100.0) fL MCH (25.0-35.0) pg MCHC (31.0-37.0) g/dL RDW (11.5-15.5) % Plt Count (150-450) k/uL MPV Neutrophils % % Lymphocytes % % Monocytes % % Eosinophils % % Basophils % % Neutrophils # (1.3-7.7) k/uL Lymphocytes # (1.0-4.8) k/uL Monocytes # (0-1.0) k/uL Eosinophils # (0-0.7) k/uL Basophils # (0-0.2) k/uL Manual Slide Review PT (9.0-12.0) sec INR (<1.2) APTT (22.0-30.0) sec Sodium (137-145) mmol/L Potassium (3.5-5.1) mmol/L Chloride (98-107) mmol/L Carbon Dioxide (22-30) mmol/L Anion Gap mmol/L BUN (7-17) mg/dL Creatinine (0.52-1.04) mg/dL Est GFR (CKD-EPI)AfAm (>60 ml/min/1.73 sqM) Est GFR (CKD-EPI)NonAf (>60 ml/min/1.73 sqM) Glucose (74-99) mg/dL Plasma Lactic Acid Mekhi (0.7-2.0) mmol/L Calcium (8.4-10.2) mg/dL Magnesium (1.6-2.3) mg/dL Total Bilirubin (0.2-1.3) mg/dL AST (14-36) U/L ALT (4-34) U/L Alkaline Phosphatase (38-126) U/L Troponin I (0.000-0.034) ng/mL Total Protein (6.3-8.2) g/dL Albumin (3.5-5.0) g/dL Urine HCG, Qual (Not Detectd) Coronavirus (PCR) Not Detected (Not Detectd) - EKG Data EKG Comments: EKG obtained at 00 58 shows normal sinus rhythm with a ventricular rate 84, IN interval 136, QRS duration 90, QT 358, QTC 423. No evidence of ST elevation or depression. (Zoya Ibrahim) Critical Care Time Critical Care Time: Yes (35 minutes) <Himanshu Bach - Last Filed: 08/03/20 07:50> Disposition Decision to Admit Reason: Admit from EC Decision Date: 07/30/20 Decision Time: 03:44 <Zoya Ibrahim - Last Filed: 07/30/20 03:32> <Himanshu Bach - Last Filed: 08/03/20 07:50> Clinical Impression: Multifocal pneumonia, Septic embolism, Sepsis, Acute kidney injury, IV drug user Disposition: ADMITTED IP TO THIS [facility] Condition: Serious
[2020-07-30 02:27] LABS: Basophils % (A) 0 %; Eosinophils # (A) 0.1 k/uL (0-0.7); Eosinophils % (A) 1 %; HCT 33.7 % (34.0-46.0); HGB 11.2 gm/dL (11.4-16.0); Lymphocytes # (A) 0.6 k/uL (1.0-4.8); Lymphocytes % (A) 5 %; MCH 28.8 pg (25.0-35.0); MCHC 33.3 g/dL (31.0-37.0); MCV 86.5 fL (80.0-100.0); Mean Platelet Volume 11.2; Monocytes # (A) 0.4 k/uL (0-1.0); Monocytes % (A) 4 %; Neutrophils # (A) 10.2 k/uL (1.3-7.7); Neutrophils % (A) 88 %; RBC 3.89 m/uL (3.80-5.40); RDW 13.3 % (11.5-15.5); WBC 11.5 k/uL (3.8-10.6)
[2020-07-30] MEDS ORDERED: VANCOMYCIN IV PER PHARMACY 1 EACH MISC MISCELLANE PRN (02:27)
[2020-07-30] MEDS ORDERED: ACETAMINOPHEN TAB 500 MG TAB PO STA (02:30)
[2020-07-30] MEDS ORDERED: PIPERACILLIN-TAZOBACTAM 3.375 GM in SODIUM CHLORIDE 0.9% 100 ML IVPB STA (02:30)
[2020-07-30 02:45] LABS: Calcium 8.6 mg/dL (8.4-10.2); Magnesium 1.8 mg/dL (1.6-2.3); Potassium 3.8 mmol/L (3.5-5.1); Total Bilirubin 1.1 mg/dL (0.2-1.3); Total Protein 6.3 g/dL (6.3-8.2)
[2020-07-30 02:49] LABS: INR 1.1 (<1.2); Partial Thromboplastin Time 23.8 sec (22.0-30.0); Prothrombin Time 11.5 sec (9.0-12.0)
[2020-07-30] MEDS ORDERED: KETOROLAC 15 MG/ML 1 ML VIAL IVP STA (03:03)
[2020-07-30 03:10] LABS: Platelet Count 50 k/uL (150-450)
--- NOTE | 2020-07-30 03:24 | CT ---
EXAM: CT Angiography Chest With Intravenous Contrast CLINICAL HISTORY: ITS.REASON CT Reason: Chest pain with breathing TECHNIQUE: Axial computed tomographic angiography images of the chest with intravenous contrast. CTDI is 18.37 mGy and DLP is 314.4 mGy-cm. This CT exam was performed using one or more of the following dose reduction techniques: automated exposure control, adjustment of the mA and/or kV according to patient size, and/or use of iterative reconstruction technique. MIP reconstructed images were created and reviewed. COMPARISON: No relevant prior studies available. FINDINGS: Pulmonary arteries: Suboptimal for enhancement pattern of the pulmonary artery tree from mixing of unopacified blood in the IVC. There is no definite evidence for large/central pulmonary emboli. However, the subsegmental and distal pulmonary artery branches are essentially nondiagnostic in the evaluation for subtle distal pulmonary embolism. Aorta: The thoracic aorta is normal in caliber. 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 No thoracic aortic aneurysm. Lungs: Scattered irregular predominantly peripheral patchy ground- glass opacities noted throughout the lungs. At least one juxtapleural lesion at the right apex posteriorly demonstrates questionable internal lucency (series 406; images 39-41). Juxtapleural bullous disease is noted along predominantly along the medial aspect of both lung apices. Pleural space: Subcentimeter trace layering right pleural effusion is noted. No left pleural effusion. No pneumothorax. Heart: Unremarkable. No cardiomegaly. No significant pericardial effusion. Bones/joints: No acute fracture. No dislocation. Soft tissues: Unremarkable. Lymph nodes: Unremarkable. No enlarged lymph nodes. IMPRESSION: 1. Suboptimal for enhancement pattern of the pulmonary artery tree from mixing of unopacified blood in the IVC. There is no definite evidence for large/central pulmonary emboli. However, the subsegmental and distal pulmonary artery branches are essentially nondiagnostic in the evaluation for subtle distal pulmonary embolism. 2. Scattered irregular predominantly peripheral patchy ground-glass opacities noted throughout the lungs. At least one juxtapleural lesion at the right apex posteriorly demonstrates questionable internal lucency. Findings are nonspecific in appearance. Differential consideration includes bilateral pneumonia, to include atypical bacterial and viral (including, but not limited to Covid-19) processes. However, questionable cavitation in the lesion in the right upper lobe raises the possibility of septic emboli with central necrosis. Differential consideration for cavitation in the right apex also includes a focus of viral pneumonia in the region of juxtapleural emphysema. Definitive diagnostic testing and potential isolation protocol is recommended in the appropriate clinical setting and risk factors. No pleural effusion or pneumothorax. 3. Subcentimeter trace layering right pleural effusion is noted.
[2020-07-30] MEDS ORDERED: NALOXONE 0.4 MG/ML 1 ML VIAL IV PRN (03:29)
[2020-07-30] MEDS ORDERED: ONDANSETRON 4 MG/2 ML VIAL IVP PRN (03:29)
[2020-07-30] MEDS ORDERED: VANCOMYCIN 1,500 MG in SODIUM CHLORIDE 0.9% 250 ML IVPB ONE (03:30)
[2020-07-30] MEDS ORDERED: HYDROmorphone 1 MG/ML 1 ML SYRINGE IVP STA (03:36)
[2020-07-30] MEDS: SODIUM CHLORIDE 0.9% 1,000 ML IV SCH ×3 (05:04→18:45)
--- NOTE | 2020-07-30 07:40 | XR ---
EXAMINATION TYPE: XR chest 1V DATE OF EXAM: 07/30/2020 COMPARISON: NONE HISTORY: Chest pain TECHNIQUE: Single frontal view of the chest is obtained. FINDINGS: Scattered infiltrates are seen bilaterally greatest within the right midlung zone. Correlate for pneu monia. Cardiomediastinal silhouette is unremarkable. Right subclavian central venous line with its di stal tip overlying the right atrium. No evidence for pneumothorax. IMPRESSION: 1. Correlate for pneumonia. Central venous line as noted.
[2020-07-30] MEDS ORDERED: NOREPINEPHRINE 32 MG in SODIUM CHLORIDE 0.9% 218 ML IV SCH (07:45)
[2020-07-30] MEDS ORDERED: NOREPINEPHRINE 32 MG in SODIUM CHLORIDE 0.9% 218 ML IV ONE (07:48)
[2020-07-30 08:01] LABS: Appearance,Urine Cloudy (Clear); Bilirubin,Urine Negative (Negative); Blood,Urine Moderate (Negative); Color,Urine Yellow; Glucose,Urine (UA) Negative (Negative); Hyaline Casts,Urine 1 /lpf (0-2); Ketones,Urine Negative (Negative); Leukocyte Esterase,Urine Moderate (Negative); Mucus,Urine Rare /hpf; Nitrite,Urine Negative (Negative); PH, Urine 5.5 (5.0-8.0); Protein,Urine 1+ (Negative); RBC,Urine 7 /hpf (0-5); Specific Gravity,Urine >1.050 (1.001-1.035); Squamous Epithelial Cell,Urine <1 /hpf (0-4); WBC,Urine 12 /hpf (0-5)
[2020-07-30] MEDS: HYDROmorphone 1 MG/ML 1 ML SYRINGE IVP PRN ×6 (08:47→23:05)
--- NOTE | 2020-07-30 10:34 | P.CNPUL ---
History of Present Illness Consult date: 07/30/20 Requesting physician: Donna Adam Reason for consult: other (Critical care management) Chief complaint: Right-sided chest pain, weakness, shortness of breath History of present illness: This is a pleasant 30-year-old female patient with a known history of ADHD, bipolar disorder, severe anxiety, chronic tobacco dependence. She follows at [facility] as well as with a Dr. Sidhu for Suboxone. She also has a history of IV drug abuse that she had done for approximately 4 years then states she was clean for 4 years. Unfortunately in June 2020 she started using IV heroin again. Approximate 4 days ago she started having migraines which turned into nausea, vomiting and diarrhea. She had chills. Unsure if she had a fever. Last evening she started developed some right-sided chest pain but tried to sleep however woke up earlier this morning and was more severe and she presented to the emergency room just after midnight. CT angiogram ruled out any large or central pulmonary emboli. Suboptimal contrast. There is noted scattered irregular peripheral patchy groundglass opacities throughout the lungs. There is also scattered lesions with some cavitary lesion more so on the right upper lobe raising the possibility of septic emboli with central necrosis. White count 11.5. Hemoglobin 11.2. Platelet count 50,000. Lymphocytes 0.6. Sodium 132. Potassium 3.8. Creatinine 1.35. Urine with moderate blood and moderate leukocytosis. Urine hCG negative. Coronavirus by PCR negative. Initial lactic acid 2.7. Currently 0.9. She did receive 2 L of fluid resuscita tion. She was given vancomycin and Zosyn. She's been hypotensive and is currently on norepinephrine at 0.05 mcg/kg/m, approximately 3.5 mcg/m. 0.9 normal saline at 130 ML's per hour. She is seen in consultation in the emergency room. She is currently awake and alert. She is still having right- sided chest discomfort. No worsening shortness of breath, cough or congestion. Maintaining O2 saturation in the 90s on room air. Echocardiogram is pending was concerns of vegetation. CT services have been consulted. Review of Systems REVIEW OF SYSTEMS: CONSTITUTIONAL: As noted for generalized weakness. Denies any recent significant weight loss or weight gain. EYES: Denies change in vision. EARS, NOSE, MOUTH, THROAT: Positive for headaches, denies sore throat. CARDIOVASCULAR: Positive for right-sided chest pain, no palpitations or syncopal episodes. RESPIRATORY: Positive for shortness of breath, cough, congestion no hemoptysis. GASTROINTESTINAL: Positive for nausea, vomiting, diarrhea GENITOURINARY: Positive for dark smelly urine. MUSKULOSKELETAL: Generalized weakness and fatigue. Denies pain, denies swelling. INTEGUMENTARY: Denies rash, denies eczema. NEUROLOGICAL: Denies recent memory loss, no recent seizure activity. PSYCHIATRIC: Positive for anxiety, depression. HEMATOLOGIC/LYMPHATIC: Denies anemia, denies enlarged lymph nodes. Past Medical History Past Medical History: No Reported History, Hypertension Additional Past Medical History / Comment(s): post depression, ADHD, bipolar disorder History of Any Multi-Drug Resistant Organisms: None Reported Additional Past Surgical History / Comment(s): Colposcopy Past Anesthesia/Blood Transfusion Reactions: No Reported Reaction Past Psychological History: ADD/ADHD, Anxiety Smoking Status: Current every day smoker Past Alcohol Use History: None Reported Past Drug Use History: Heroin Medications and Allergies Home Medications Medication Instructions Recorded Confirmed Type Buprenorphine HCl/Naloxone HCl 1 film SL BID 07/30/20 07/30/20 History [Zubsolv 5.7-1.4 mg Tablet Sl] Allergies Allergy/AdvReac Type Severity Reaction Status Date / Time No Known Allergies Allergy Verified 07/30/20 08:19 Physical Exam Vitals: Vital Signs Temp Pulse Resp BP Pulse Ox 07/30/20 09:31 80 16 112/58 95 07/30/20 09:00 74 18 110/66 95 07/30/20 08:30 79 17 100/53 99 07/30/20 08:18 20 07/30/20 08:04 99.1 F 77 18 96 07/30/20 08:00 74 18 87/55 98 07/30/20 07:50 71 31 H 83/43 07/30/20 07:40 71 22 83/42 07/30/20 07:33 75 24 90/41 100 07/30/20 07:30 76 27 H 90/48 07/30/20 07:20 75 31 H 89/51 98 07/30/20 07:10 76 18 98/50 100 07/30/20 07:00 77 18 100/47 95 07/30/20 06:56 75 24 100/47 95 07/30/20 06:46 80 30 H 91/49 95 07/30/20 06:39 78 28 H 85/51 95 07/30/20 06:15 99.1 F 75 24 82/50 94 L 07/30/20 05:05 77 36 H 88/40 93 L 07/30/20 04:19 99.9 F H 84 46 H 84/42 93 L 07/30/20 03:36 101.1 F H 86 42 H 95/55 95 07/30/20 02:56 103.2 F H 87 45 H 94/40 97 07/30/20 02:25 103.0 F H 83 45 H 94/48 99 07/30/20 01:55 87 40 H 88/45 100 07/30/20 00:46 99.3 F 84 20 92/53 99 Intake and Output 07/29/20 07/30/20 07/30/20 22:59 06:59 14:59 Output Total 250 Balance -250 Output: Urine 250 Other: Weight 70.307 kg GENERAL EXAM: Alert, pleasant 30-year-old female patient, on room air, fairly comfortable in no apparent distress. HEAD: Normocephalic. EYES: Normal reaction of pupils, equal size. NOSE: Clear with pink turbinates. THROAT: No erythema or exudates. NECK: No masses, no JVD. CHEST: No chest wall deformity. LUNGS: Equal air entry with few scattered rhonchi more so on the right lung CVS: S1 and S2 normal with an audible murmur, regular rhythm. ABDOMEN: No hepatosplenomegaly, normal bowel sounds, no guarding or rigidity. SPINE: No scoliosis or deformity SKIN: No rashes CENTRAL NERVOUS SYSTEM: No focal deficits, tone is normal in all 4 extremities. EXTREMITIES: There is no peripheral edema. No clubbing, no cyanosis. Peripheral pulses are intact. Results - Laboratory Findings CBC and BMP: 07/30/20 02:05 07/30/20 02:05 PT/INR, D-dimer PT 11.5 sec (9.0-12.0) 07/30/20 02:05 INR 1.1 (<1.2) 07/30/20 02:05 Abnormal lab findings: Abnormal Labs 07/30/20 07/30/20 07/30/20 02:05 02:05 02:05 WBC 11.5 H Hgb 11.2 L Hct 33.7 L Plt Count 50 L Neutrophils # 10.2 H Lymphocytes # 0.6 L Sodium 132 L Chloride 96 L BUN 27 H Creatinine 1.35 H Glucose 114 H Plasma Lactic Acid Mekhi 2.7 H* Albumin 3.0 L Urine Appearance Ur Specific [place] Urine Protein Urine Blood Ur Leukocyte Esterase Urine RBC Urine WBC Urine Mucus 07/30/20 07:49 WBC Hgb Hct Plt Count Neutrophils # Lymphocytes # Sodium Chloride BUN Creatinine Glucose Plasma Lactic Acid Mekhi Albumin Urine Appearance Cloudy H Ur Specific [place] >1.050 H Urine Protein 1+ H Urine Blood Moderate H Ur Leukocyte Esterase Moderate H Urine RBC 7 H Urine WBC 12 H Urine Mucus Rare H - Diagnostic Findings Chest x-ray: image reviewed CT scan - chest: image reviewed Assessment and Plan Assessment: 1 Generalized weakness and fatigue secondary to sepsis with hypotension, dehydration. 2 Right midlung infiltrate in addition to lesions, cavitary lesion, suspect septic emboli versus pneumonia 3 Sepsis with hypotension requiring norepinephrine for suspected bacteremia the contrary to IV drug use 4 Leukocytosis secondary to above 5 Thrombocytopenia secondary to above 6 Acute renal failure secondary to above along with suspected UTI 7 IV drug use 8 History of ADHD 9 History of anxiety 10 Bipolar disorder Plan: The patient was seen and evaluated by Dr. Metz CAT scan, chest x-ray and labs reviewed Echocardiogram pending We'll obtain hepatitis screen Obtain HIV screen CT services are consulted Admit to the intensive care unit Titrate pressors as tolerated Continue fluid resuscitation Continue vancomycin We will continue to follow and make further recommendations based on her clinical status I, the cosigning physician, performed a history & physical examination of the patient. Lungs sounds with few scattered rhonchi more so on the right lung. Maintaining good O2 saturations in the 90s on room air. I discussed the assessment and plan of care with my nurse practitioner, Talita Moreno. I attest to the above consultation as dictated by her. Time with Patient: Greater than 30
[2020-07-30 11:34] LABS: Glucose,Whole Blood 105 mg/dL (75-99)
--- NOTE | 2020-07-30 11:42 | P.GSCN ---
History of Present Illness Consult date: 07/30/20 Reason for Consult: Suspected endocarditis. Requesting physician: Himanshu Bach History of present illness: This is a 30-year-old female patient who follows with Dr. Joshua Sidhu from addiction medicine on an outpatient basis. She has a past medical history for bipolar disorder, anxiety, ADHD, chronic ongoing nicotine dependence and history of IV drug use in which she admits to using heroin the first week of June 2020. She presents to the emergency department here at [facility] with complaints of pain to her right anterior and posterior chest with breathing and is associated with shortness of breath. She reports around 5 days ago she had a migraine headache which lasted for about 2 days, and also had some episodes of nausea, vomiting and diarrhea. The headache went away after 2 days and she developed this pain to her chest and shortness of breath which brought her to the emergency department. She denies any headache at this time, abdominal discomfort, visual changes, numbness or tingling or weakness at this time. The patient does report that she does have some episodes of dizziness at times when she tries to ambulate from a sitting or lying position. Due to the patient's presenting symptoms a CT angiography chest with intravenous contrast was completed which demonstrated no definite evidence for large/central pulmonary emboli, nondiagnostic for subtle distal pulmonary embolism, scattered irregular predominantly peripheral patchy groundglass opacities noted throughout the lungs, a juxtapleural lesion at the right apex posteriorly questionable for internal lucency, questionable bilateral pneumonia, atypical bacterial or viral including but not limited to COVID-19, a questionable cavitation in the lesion in the right upper lobe suspicious for possible septic emboli with central necrosis, and a sub-centimeter trace layering right pleural effusion. A COVID- 19 test was negative, initial Laboratory results showed a WBC count of 11.5, neutrophils of 10.2, hemoglobin 11.2, platelets 50, BUN 27, creatinine 1.35, serial troponins were negative and a lactic acid level of 2.7. A 12-lead EKG was also completed which showed normal sinus rhythm with a heart rate of 84 BPM. Her chest x-ray report showed scattered infiltrates bilaterally, greatest within the right mid lung, suspicious for pneumonia. Due to the patient's presenting symptoms, and history of IV drug abuse a 2-D echocardiogram was completed, although the report is not available at this time. Subsequently a consult was placed to Dr. Cary Lock from cardiothoracic surgery for further evaluation and treatment recommendations. Review of Systems A 14 point review of systems was completed and was negative except as mentioned in the HPI. Past Medical History Past Medical History: No Reported History Additional Past Medical History / Comment(s): post depression History of Any Multi-Drug Resistant Organisms: None Reported Past Surgical History: No Surgical Hx Reported Additional Past Surgical History / Comment(s): Colposcopy Past Anesthesia/Blood Transfusion Reactions: No Reported Reaction Past Psychological History: ADD/ADHD, Anxiety, Bipolar Smoking Status: Current every day smoker Past Alcohol Use History: None Reported Past Drug Use History: Heroin, IV Drug Use - Past Family History Mother Additional Family Medical History / Comment(s): She reports family history of heart disease on her mother's side. Father Additional Family Medical History / Comment(s): She reports that her father had a problem with high sodium levels. Medications and Allergies Home Medications Medication Instructions Recorded Confirmed Type Buprenorphine HCl/Naloxone HCl 1 film SL BID 07/30/20 07/30/20 History [Zubsolv 5.7-1.4 mg Tablet Sl] Allergies Allergy/AdvReac Type Severity Reaction Status Date / Time No Known Allergies Allergy Verified 07/30/20 08:19 Surgical - Exam Vital Signs Temp Pulse Resp BP Pulse Ox 99.3 F 84 20 92/53 99 07/30/20 00:46 07/30/20 00:46 07/30/20 00:46 07/30/20 00:46 07/30/20 00:46 - General Mild distress due to her complaints of her chest pain. Currently on norepinephrine drip for blood pressure support. well developed, well nourished, obese - Eyes PERRL, normal ocular movement, no icteric - ENT normal pinna, normal nares, normal mucosa, no congestion, poor senior care - Neck Neck supple, no JVD. no masses, no bruits, trachea midline, no venous distension - Respiratory Lung sounds essentially clear throughout, diminished bilateral bases. Respirations are symmetrical and nonlabored. Oxygen saturation is 99% on 3 L nasal cannula. - Cardiovascular Regular rhythm and rate. S1 and S2 present, negative for S3, or gallop. Systolic murmur heard best to her left sternal border fifth intercostal space. - Abdomen Abdomen is soft, nontender and nondistended. Active bowel sounds present in all 4 abdominal quadrants. No guarding or rigidity. No organomegaly appreciated. - Genitourinary Deferred - Rectum Deferred - Integumentary Skin is warm and dry. No clubbing or cyanosis is present. no rash, no growths, no abnormal pigmentation - Neurologic Cranial nerves II through XII intact. - Musculoskeletal Moves all 4 extremities with equal strength. - Psychiatric oriented to time, oriented to person, oriented to place, speech is normal, memory intact Results - Labs 07/30/20 02:05 07/30/20 02:05 Abnormal Lab Results - Last 24 Hours (Table) 07/30/20 07/30/20 07/30/20 Range/Units 02:05 02:05 02:05 WBC 11.5 H (3.8-10.6) k/uL Hgb 11.2 L (11.4-16.0) gm/dL Hct 33.7 L (34.0-46.0) % Plt Count 50 L (150-450) k/uL Neutrophils # 10.2 H (1.3-7.7) k/uL Lymphocytes # 0.6 L (1.0-4.8) k/uL Sodium 132 L (137-145) mmol/L Chloride 96 L (98-107) mmol/L BUN 27 H (7-17) mg/dL Creatinine 1.35 H (0.52-1.04) mg/dL Glucose 114 H (74-99) mg/dL Plasma Lactic Acid M[place]hi 2.7 H* (0.7-2.0) mmol/L Albumin 3.0 L (3.5-5.0) g/dL Urine Appearance (Clear) Ur Specific [place] (1.001-1.035) Urine Protein (Negative) Urine Blood (Negative) Ur Leukocyte Esterase (Negative) Urine RBC (0-5) /hpf Urine WBC (0-5) /hpf Urine Mucus (None) /hpf 07/30/20 Range/Units 07:49 WBC (3.8-10.6) k/uL Hgb (11.4-16.0) gm/dL Hct (34.0-46.0) % Plt Count (150-450) k/uL Neutrophils # (1.3-7.7) k/uL Lymphocytes # (1.0-4.8) k/uL Sodium (137-145) mmol/L Chloride (98-107) mmol/L BUN (7-17) mg/dL Creatinine (0.52-1.04) mg/dL Glucose (74-99) mg/dL Plasma Lactic Acid M[place] (0.7-2.0) mmol/L Albumin (3.5-5.0) g/dL Urine Appearance Cloudy H (Clear) Ur Specific [place] >1.050 H (1.001-1.035) Urine Protein 1+ H (Negative) Urine Blood Moderate H (Negative) Ur Leukocyte Esterase Moderate H (Negative) Urine RBC 7 H (0-5) /hpf Urine WBC 12 H (0-5) /hpf Urine Mucus Rare H (None) /hpf Diabetes panel 07/30/20 Range/Units 02:05 Sodium 132 L (137-145) mmol/L Potassium 3.8 (3.5-5.1) mmol/L Chloride 96 L (98-107) mmol/L Carbon Dioxide 27 (22-30) mmol/L BUN 27 H (7-17) mg/dL Creatinine 1.35 H (0.52-1.04) mg/dL Glucose 114 H (74-99) mg/dL Calcium 8.6 (8.4-10.2) mg/dL AST 36 (14-36) U/L ALT 26 (4-34) U/L Alkaline Phosphatase 103 (38-126) U/L Total Protein 6.3 (6.3-8.2) g/dL Albumin 3.0 L (3.5-5.0) g/dL Calcium panel 07/30/20 Range/Units 02:05 Calcium 8.6 (8.4-10.2) mg/dL Albumin 3.0 L (3.5-5.0) g/dL Pituitary panel 07/30/20 Range/Units 02:05 Sodium 132 L (137-145) mmol/L Potassium 3.8 (3.5-5.1) mmol/L Chloride 96 L (98-107) mmol/L Carbon Dioxide 27 (22-30) mmol/L BUN 27 H (7-17) mg/dL Creatinine 1.35 H (0.52-1.04) mg/dL Glucose 114 H (74-99) mg/dL Calcium 8.6 (8.4-10.2) mg/dL Adrenal panel 07/30/20 Range/Units 02:05 Sodium 132 L (137-145) mmol/L Potassium 3.8 (3.5-5.1) mmol/L Chloride 96 L (98-107) mmol/L Carbon Dioxide 27 (22-30) mmol/L BUN 27 H (7-17) mg/dL Creatinine 1.35 H (0.52-1.04) mg/dL Glucose 114 H (74-99) mg/dL Calcium 8.6 (8.4-10.2) mg/dL Total Bilirubin 1.1 (0.2-1.3) mg/dL AST 36 (14-36) U/L ALT 26 (4-34) U/L Alkaline Phosphatase 103 (38-126) U/L Total Protein 6.3 (6.3-8.2) g/dL Albumin 3.0 L (3.5-5.0) g/dL - Imaging Chest x-ray: report reviewed, image reviewed CT scan - chest: report reviewed, image reviewed Assessment and Plan Assessment: 1. High suspicion for tricuspid valve endocarditis with septic emboli to the lungs 2. Right midlung infiltrate, cavitary lesion, suspected septic emboli versus pneumonia 3. Sepsis with hypotension, currently on norepinephrine drip 4. Leukocytosis secondary to above 5. Fever, secondary to above 6. History of IV drug abuse, heroin 7. Bipolar disorder 8. Anxiety 9. Attention deficit hyperactivity disorder 10. Chronic ongoing tobacco abuse Plan: The patient was seen and examined at her bedside in the emergency department. Her chart diagnostics were reviewed. She was seen and examined by Dr. Cary Lock from cardiothoracic surgery. Awaiting results of the 2-D echocardiogram. Recommend a transesophageal echocardiogram for further evaluation of left-sided valves, which was discussed between Dr Lock and Dr Keating from cardiology. Send 2 sets of blood cultures despite having started antibiotics. No class I indication for surgical intervention at this time. Continue antibiotic management per infectious disease recommendations. More recommendations to follow based on patient's clinical course. Thank you for this consult and we will look for to working with you in the care of this patient. Time with Patient: Greater than 30
--- NOTE | 2020-07-30 12:39 | P.CRDCN ---
History of Present Illness History of present illness: This is Dr. Keating dictating a consult on this patient The patient was interviewed and examined IMPRESSION / ASSESSMENT: IV drug abuse with septic pulmonary emboli Evaluate for tricuspid valvular endocarditis PLAN: 2-D echo Doppler study to evaluate wounds I did speak to CT surgery and we will proceed with a JESSICA on Saturday Patient is on IV antibiotics HPI Patient presented to the emergency room with right-sided chest discomfort upon taking a breath. She stated he should been sick for the last 4 days. She had a headache, nausea vomiting diarrhea her blood pressure was in the 90s systolic white count was elevated She was Coumadin negative Should bilateral pneumonitis with cavitary lesions concerning for septic emboli ROS: No fever chills or rigors, no cough, phlegm or expectoration, no nausea, vomiting or diarrhea, no hematuria, dysuria, no musculoskeletal complaints, no strokes or seizures, no skin lesions. EXAMINATION: Blood pressure 104/59 mmHg, respiratory rate in the 30s, pulse rate in the 90s Heart sounds soft systolic murmur in the precordium Lung sounds are reduced bilaterally with crackles Abdomen soft And is warm REVIEW OF LABS, ECG & MEDICAL DATA Past medical history of hypertension and IV drug abuse Current regular smoker Twelve-lead ECG shows sinus rhythm normal TX narrow QRS no definite ST segment abnormalities. This is a normal EKG Past Medical History Past Medical History: No Reported History Additional Past Medical History / Comment(s): post depression History of Any Multi-Drug Resistant Organisms: None Reported Past Surgical History: No Surgical Hx Reported Additional Past Surgical History / Comment(s): Colposcopy Past Anesthesia/Blood Transfusion Reactions: No Reported Reaction Past Psychological History: ADD/ADHD, Anxiety, Bipolar Smoking Status: Current every day smoker Past Alcohol Use History: None Reported Past Drug Use History: Heroin, IV Drug Use - Past Family History Mother Additional Family Medical History / Comment(s): She reports family history of heart disease on her mother's side. Father Additional Family Medical History / Comment(s): She reports that her father had a problem with high sodium levels. Medications and Allergies Home Medications Medication Instructions Recorded Confirmed Type Buprenorphine HCl/Naloxone HCl 1 film SL BID 07/30/20 07/30/20 History [Zubsolv 5.7-1.4 mg Tablet Sl] Allergies Allergy/AdvReac Type Severity Reaction Status Date / Time No Known Allergies Allergy Verified 07/30/20 08:19 Physical Exam Vitals: Vital Signs Temp Pulse Resp BP Pulse Ox 07/30/20 12:00 92 38 H 87/48 94 L 07/30/20 11:34 31 H 07/30/20 11:30 78 36 H 104/59 94 L 07/30/20 11:00 99 31 H 98/59 93 L 07/30/20 10:45 98.6 F 74 27 H 98/59 95 07/30/20 10:00 105 H 34 H 104/53 92 L 07/30/20 09:45 90 32 H 114/53 93 L 07/30/20 09:31 80 16 112/58 95 07/30/20 09:30 77 29 H 111/57 95 07/30/20 09:00 74 18 110/66 95 07/30/20 08:30 79 17 100/53 99 07/30/20 08:18 20 07/30/20 08:04 99.1 F 77 18 96 07/30/20 08:00 74 18 87/55 98 07/30/20 07:50 71 31 H 83/43 07/30/20 07:40 71 22 83/42 07/30/20 07:33 75 24 90/41 100 07/30/20 07:30 76 27 H 90/48 07/30/20 07:20 75 31 H 89/51 98 07/30/20 07:10 76 18 98/50 100 07/30/20 07:00 77 18 100/47 95 07/30/20 06:56 75 24 100/47 95 07/30/20 06:46 80 30 H 91/49 95 07/30/20 06:39 78 28 H 85/51 95 07/30/20 06:15 99.1 F 75 24 82/50 94 L 07/30/20 05:05 77 36 H 88/40 93 L 07/30/20 04:19 99.9 F H 84 46 H 84/42 93 L 07/30/20 03:36 101.1 F H 86 42 H 95/55 95 07/30/20 02:56 103.2 F H 87 45 H 94/40 97 07/30/20 02:25 103.0 F H 83 45 H 94/48 99 07/30/20 01:55 87 40 H 88/45 100 07/30/20 00:46 99.3 F 84 20 92/53 99 Intake and Output 07/29/20 07/30/20 07/30/20 22:59 06:59 14:59 Intake Total 410 Output Total 435 Balance -25 Intake: IV 260 0.9ns 260 Oral 150 Output: Urine 435 Other: Voiding Method Indwelling Catheter Weight 70.307 kg Results 07/30/20 02:05 07/30/20 02:05 Cardiac Enzymes 07/30/20 07/30/20 07/30/20 Range/Units 02:05 02:05 05:43 AST 36 (14-36) U/L Troponin I <0.012 <0.012 (0.000-0.034) ng/mL 07/30/20 Range/Units 08:01 AST (14-36) U/L Troponin I <0.012 (0.000-0.034) ng/mL Coagulation 07/30/20 Range/Units 02:05 PT 11.5 (9.0-12.0) sec APTT 23.8 (22.0-30.0) sec CBC 07/30/20 Range/Units 02:05 WBC 11.5 H (3.8-10.6) k/uL RBC 3.89 (3.80-5.40) m/uL Hgb 11.2 L (11.4-16.0) gm/dL Hct 33.7 L (34.0-46.0) % Plt Count 50 L (150-450) k/uL Comprehensive Metabolic Panel 07/30/20 Range/Units 02:05 Sodium 132 L (137-145) mmol/L Potassium 3.8 (3.5-5.1) mmol/L Chloride 96 L (98-107) mmol/L Carbon Dioxide 27 (22-30) mmol/L BUN 27 H (7-17) mg/dL Creatinine 1.35 H (0.52-1.04) mg/dL Glucose 114 H (74-99) mg/dL Calcium 8.6 (8.4-10.2) mg/dL AST 36 (14-36) U/L ALT 26 (4-34) U/L Alkaline Phosphatase 103 (38-126) U/L Total Protein 6.3 (6.3-8.2) g/dL Albumin 3.0 L (3.5-5.0) g/dL Current Medications Generic Name Dose Route Start Last Admin Trade Name Freq PRN Reason Stop Dose Admin Acetaminophen 650 mg 07/30/20 03:29 Acetaminophen Tab 325 Mg Tab PO Q6HR PRN Mild Pain or Fever > 100.5 Hydromorphone HCl 1 mg 07/30/20 03:29 07/30/20 11:04 Hydromorphone 1 Mg/Ml 1 Ml Syringe IVP 1 mg Q2H PRN Administration Severe Pain Sodium Chloride 1,000 mls @ 130 mls/hr 07/30/20 03:30 07/30/20 11:13 Saline 0.9% IV 130 mls/hr .[id number] CAROL ANN Administration Vancomycin HCl 1,500 mg/ 250 mls @ 125 mls/hr 07/30/20 19:00 Sodium Chloride IVPB Q16H CAROL ANN Norepinephrine Bitartrate 32 250 mls @ 1.648 mls/hr 07/30/20 07:48 07/30/20 08:02 mg/ Sodium Chloride IV 07/31/20 07:47 0.05 mcg/kg/min .Q24H ONE 1.648 mls/hr Administration Protocol 0.05 MCG/KG/MIN Naloxone HCl 0.2 mg 07/30/20 03:29 Naloxone 0.4 Mg/Ml 1 Ml Vial IV Q2M PRN Opioid Reversal Ondansetron HCl 4 mg 07/30/20 03:29 Ondansetron 4 Mg/2 Ml Vial IVP Q8HR PRN Nausea And Vomiting Intake and Output 07/29/20 07/30/20 07/30/20 22:59 06:59 14:59 Intake Total 410 Output Total 435 Balance -25 Intake: IV 260 0.9ns 260 Oral 150 Output: Urine 435 Other: Voiding Method Indwelling Catheter Weight 70.307 kg 07/30/20 02:05 07/30/20 02:05
--- NOTE | 2020-07-30 17:13 | P.HPIM ---
History of Present Illness H&P Date: 07/30/20 30 year-old pleasant female patient with past history significant for IV drug use, presents to the emergency department for evaluation of pain to the right side of her chest with breathing. Patient states she has been sick for the last 4 days. Patient states this started with a migraine headache which turned into 2 days of nausea and vomiting with diarrhea. She reports body aches and chills for those two days. Did not check her temperature but believes she had a fever. States that for the last couple of days she has been having a severe sharp pain to the right chest whenever she takes a deep breath. Denies any cough. State she has been unable to get out of bed for the last four days. States she has not been eating or drinking. Reports mild swelling to the lower extremities. Denies any rash. Denies chance of . She also reports dark smelly urine. Patient denies any recent rash, abdominal pain, back pain, numbness, tingling, dizziness, weakness, headache, visual changes, or any other complaints. BP initially low in the 90s systolic. Oxygen saturation is 99% on room air. She is not tachycardic. Labs are reveiewed and show wbc count of 11.5, neutrophils of 10.2, BUN elevated 27, Creatinine 1.35. COVID-[address] chest shows bilateral pneumonia with possible cavitary lesions and bolus changes. His concerning for septic emboli versus atypical bacterial pneumonia versus atypical viral pneumonia versis COVID-19 pneumonia though her COVID test was negative and she has elevated WBC and neutrophil count. patient was started on Zosyn and vancomycin. Review of Systems REVIEW OF SYSTEMS: CONSTITUTIONAL: No fever, no malaise, no fatigue. HEENT: No recent visual problems or hearing problems. Denied any sore throat. CARDIOVASCULAR: Complaints of left-sided chest, No orthopnea, PND, no palpitations, no syncope. PULMONARY: No shortness of breath, no cough, no hemoptysis. GASTROINTESTINAL: No diarrhea, no nausea, no vomiting, no abdominal pain. NEUROLOGICAL: No headaches, no weakness, no numbness. HEMATOLOGICAL: Denies any bleeding or petechiae. GENITOURINARY: Denies any burning micturition, frequency, or urgency. MUSCULOSKELETAL/RHEUMATOLOGICAL: Denies any joint pain, swelling, or any muscle pain. ENDOCRINE: Denies any polyuria or polydipsia. The rest of the 14-point review of systems is negative. Past Medical History Past Medical History: No Reported History Additional Past Medical History / Comment(s): post depression History of Any Multi-Drug Resistant Organisms: None Reported Past Surgical History: No Surgical Hx Reported Additional Past Surgical History / Comment(s): Colposcopy Past Anesthesia/Blood Transfusion Reactions: No Reported Reaction Past Psychological History: ADD/ADHD, Anxiety, Bipolar Smoking Status: Current every day smoker Past Alcohol Use History: None Reported Past Drug Use History: Heroin, IV Drug Use - Past Family History Mother Additional Family Medical History / Comment(s): She reports family history of heart disease on her mother's side. Father Additional Family Medical History / Comment(s): She reports that her father had a problem with high sodium levels. Medications and Allergies Home Medications Medication Instructions Recorded Confirmed Type Buprenorphine HCl/Naloxone HCl 1 film SL BID 07/30/20 07/30/20 History [Zubsolv 5.7-1.4 mg Tablet Sl] Allergies Allergy/AdvReac Type Severity Reaction Status Date / Time No Known Allergies Allergy Verified 07/30/20 08:19 Physical Exam Vitals: Vital Signs Temp Pulse Resp BP Pulse Ox 07/30/20 13:30 86 42 H 102/54 91 L 07/30/20 13:00 82 33 H 104/56 94 L 07/30/20 12:30 81 38 H 101/53 95 07/30/20 12:00 92 38 H 87/48 94 L 07/30/20 11:34 31 H 07/30/20 11:30 78 36 H 104/59 94 L 07/30/20 11:00 99 31 H 98/59 93 L 07/30/20 10:45 98.6 F 74 27 H 98/59 95 07/30/20 10:00 105 H 34 H 104/53 92 L 07/30/20 09:45 90 32 H 114/53 93 L 07/30/20 09:31 80 16 112/58 95 07/30/20 09:30 77 29 H 111/57 95 07/30/20 09:00 74 18 110/66 95 07/30/20 08:30 79 17 100/53 99 07/30/20 08:18 20 07/30/20 08:04 99.1 F 77 18 96 0206/21 08:00 74 18 87/55 98 07/30/20 07:50 71 31 H 83/43 07/30/20 07:40 71 22 83/42 07/30/20 07:33 75 24 90/41 100 07/30/20 07:30 76 27 H 90/48 07/30/20 07:20 75 31 H 89/51 98 07/30/20 07:10 76 18 98/50 100 07/30/20 07:00 77 18 100/47 95 07/30/20 06:56 75 24 100/47 95 07/30/20 06:46 80 30 H 91/49 95 07/30/20 06:39 78 28 H 85/51 95 07/30/20 06:15 99.1 F 75 24 82/50 94 L 07/30/20 05:05 77 36 H 88/40 93 L 07/30/20 04:19 99.9 F H 84 46 H 84/42 93 L 07/30/20 03:36 101.1 F H 86 42 H 95/55 95 07/30/20 02:56 103.2 F H 87 45 H 94/40 97 07/30/20 02:25 103.0 F H 83 45 H 94/48 99 07/30/20 01:55 87 40 H 88/45 100 07/30/20 00:46 99.3 F 84 20 92/53 99 Intake and Output 07/29/20 07/30/20 07/30/20 22:59 06:59 14:59 Intake Total 640 Output Total 485 Balance 155 Intake: IV 390 0.9ns 390 Oral 250 Output: Urine 485 Other: Voiding Method Indwelling Catheter Weight 70.307 kg GENERAL EXAM: Alert, pleasant 30-year-old female patient, on room air, fairly comfortable in no apparent distress. HEAD: Normocephalic. EYES: Normal reaction of pupils, equal size. NOSE: Clear with pink turbinates. THROAT: No erythema or exudates. NECK: No masses, no JVD. CHEST: No chest wall deformity. LUNGS: Equal air entry with few scattered rhonchi more so on the right lung CVS: S1 and S2 normal with an audible murmur, regular rhythm. ABDOMEN: No hepatosplenomegaly, normal bowel sounds, no guarding or rigidity. SPINE: No scoliosis or deformity SKIN: No rashes CENTRAL NERVOUS SYSTEM: No focal deficits, tone is normal in all 4 extremities. EXTREMITIES: There is no peripheral edema. No clubbing, no cyanosis. Peripheral pulses are intact. Results CBC & Chem 7: 07/30/20 02:05 07/30/20 02:05 Labs: Abnormal Lab Results - Last 24 Hours (Table) 07/30/20 07/30/20 07/30/20 Range/Units 02:05 02:05 02:05 WBC 11.5 H (3.8-10.6) k/uL Hgb 11.2 L (11.4-16.0) gm/dL Hct 33.7 L (34.0-46.0) % Plt Count 50 L (150-450) k/uL Neutrophils # 10.2 H (1.3-7.7) k/uL Lymphocytes # 0.6 L (1.0-4.8) k/uL Sodium 132 L (137-145) mmol/L Chloride 96 L (98-107) mmol/L BUN 27 H (7-17) mg/dL Creatinine 1.35 H (0.52-1.04) mg/dL Glucose 114 H (74-99) mg/dL POC Glucose (mg/dL) (75-99) mg/dL Plasma Lactic Acid M[place]hi 2.7 H* (0.7-2.0) mmol/L Albumin 3.0 L (3.5-5.0) g/dL Urine Appearance (Clear) Ur Specific [place] (1.001-1.035) Urine Protein (Negative) Urine Blood (Negative) Ur Leukocyte Esterase (Negative) Urine RBC (0-5) /hpf Urine WBC (0-5) /hpf Urine Mucus (None) /hpf 07/30/20 07/30/20 Range/Units 07:49 11:33 WBC (3.8-10.6) k/uL Hgb (11.4-16.0) gm/dL Hct (34.0-46.0) % Plt Count (150-450) k/uL Neutrophils # (1.3-7.7) k/uL Lymphocytes # (1.0-4.8) k/uL Sodium (137-145) mmol/L Chloride (98-107) mmol/L BUN (7-17) mg/dL Creatinine (0.52-1.04) mg/dL Glucose (74-99) mg/dL POC Glucose (mg/dL) 105 H (75-99) mg/dL Plasma Lactic Acid [place] (0.7-2.0) mmol/L Albumin (3.5-5.0) g/dL Urine Appearance Cloudy H (Clear) Ur Specific [place] >1.050 H (1.001-1.035) Urine Protein 1+ H (Negative) Urine Blood Moderate H (Negative) Ur Leukocyte Esterase Moderate H (Negative) Urine RBC 7 H (0-5) /hpf Urine WBC 12 H (0-5) /hpf Urine Mucus Rare H (None) /hpf Microbiology - Last 24 Hours (Table) 07/30/20 07:49 Urine Culture - Preliminary Urine,Voided Assessment and Plan Assessment: 1. Right midlung infiltrate/cavitary lesion/suspected septic emboli versus pneumonia - Patient is started on IV Zosyn and vancomycin; echocardiogram is ordered and pending to rule out valvular vegetations; cardiothoracic surgery is consulted - HIV screen and hepatitis is ordered and pending 2. Sepsis with hypotension; patient requires norepinephrine; patient remains on continuous IV fluid resuscitation; we will try to titrate pressors as tolerated 3. UTI; IV antibiotics as indicated above; we will adjust antibiotic treatment 4. Acute renal injury; continue with IV fluid resuscitation as indicated above; we will monitor strict SHREYAS's; daily weights, renal function and electrolytes; avoid nephrotoxic agents 5. IV drug abuse; counseling done 6. History of ADHD; continue with outpatient psych follow-up 7. Bipolar disorder; outpatient psych follow-up DVT prophylaxis; SCDs/subcu heparin CODE STATUS; full code
[2020-07-30 18:21] LABS: Hepatitis A Antibody IgM Non-Reactive (Non-Reactive); Hepatitis B Surface AB- Quant 255.3 mIU/mL; Hepatitis B Surface Antibody Reactive (Non-Reactive); Hepatitis C IgG Antibody Reactive (Non-Reactive)
[2020-07-30 18:22] LABS: Hepatitis B Core IgM Non-Reactive (Non-Reactive); Hepatitis B Surface Antigen Non-Reactive (Non-Reactive)
[2020-07-30] MEDS ORDERED: VANCOMYCIN 1,500 MG in SODIUM CHLORIDE 0.9% 250 ML IVPB SCH (19:00)
[2020-07-30] MEDS: ACETAMINOPHEN TAB 325 MG TAB PO PRN (20:13)
[2020-07-30] MEDS ORDERED: CEFEPIME 2 GM in SODIUM CHLORIDE 0.9% 100 ML IVPB ONE (21:00)
--- NOTE | 2020-07-30 21:06 | CONS ---
CONSULTATION DATE OF SERVICE: 07/30/2020 REASON FOR CONSULTATION: Septic emboli. HISTORY OF PRESENT ILLNESS: The patient is a 30-year-old female with a past medical history significant for IV drug use and this patient mentioned she was sober for almost 4 years. However, the patient did have a relapse and did use IV drugs beginning of June 2020 after a break-up. The patient is presenting to the [facility] ER after midnight complaining of right-sided chest pain and difficulty breathing. The patient's symptoms have been going on for about a week before presenting to the hospital. The patient describes the pain to be more of a sharp in nature, intensity 6-7/10 and no radiation with associated shortness of breath on minimal exertion. The patient denies having any cough or sputum production and did not recall noting any high-grade fever or chills. No nausea, no vomiting. No choking on the food. No abdominal pain or any diarrhea. On presentation to the hospital, the patient did have fever of 103 degrees Fahrenheit. The patient was tachycardic and tachypneic. No significant hypoxemia was reported. The patient did have an elevated white count. Lactic acid was 2.7. Urine has been positive. Bueno PCR was negative. Blood culture obtained currently pending. Patient did have a CT angiogram of the chest that was negative for PE however raises possibility of cavitary pneumonia with concern for endocarditis. The patient has been admitted to ICU where the patient was started on cefepime and vancomycin. Infectious Disease was consulted for further management of antibiotic therapy. REVIEW OF SYSTEMS: Positive points have been mentioned in HPI. Rest of the systems are negative. PAST MEDICAL HISTORY: IV drug use, hypertension, depression, possible ADHD. PAST SURGICAL HISTORY: Colposcopy. SOCIAL HISTORY: Current everyday smoker. Admits to heroin use IV, last dose was in the beginning of June. FAMILY HISTORY: No pertinent findings noticed. ALLERGIES: No known drug allergies. MEDICATIONS: The patient is currently on Tylenol, cefepime 2 grams q.12 hours. The patient is on Dilaudid, Narcan, Zofran, IV fluid and vancomycin pharmacy to dose. PHYSICAL EXAMINATION: VITAL SIGNS: Her blood pressure is 129/86, pulse of 112, temperature 98.4. She is 92% on room air. GENERAL DESCRIPTION: A middle-aged female lying in bed in no distress. No tachypnea or accessory muscle of respiration use. HEENT: Examination shows slight pallor, no scleral icterus. Oral mucous membrane is dry. NECK: Trachea central, no thyromegaly. LUNGS: Unlabored breathing with decreased intensity of breath sounds, no wheeze. HEART: S1, S2. Regular rate and rhythm. ABDOMEN: Soft, no tenderness, no guarding or rigidity. EXTREMITIES: No edema of the feet. SKIN: No rash or mass palpable. NEUROLOGICAL: The patient is awake, alert, oriented times three. Mood and affect normal. LABS: Hemoglobin 11.1, white count 11.5, BUN of 27, creatinine 1.35. Lactate acid 2.7. Liver enzymes are normal. Urine was positive. Bueno PCR was negative. CT report as mentioned above. DIAGNOSTIC IMPRESSION: Patient admitted to the hospital with sepsis in this patient who did have fever of 103. She did have tachycardia, elevated white count with evidence of cavitary pneumonia, high clinical suspicion for endocarditis with secondary septic emboli in this patient who did have a history of IV drug use. Admitted to cover for both Methicillin resistant Staphylococcus aureus and Pseudomonas sepsis likely pathogen. PLAN: 1. Blood culture has been obtained and those will be followed. 2. Vancomycin pharmacy to dose target of 15 along with cefepime for adequate antibiotic coverage. 3. Await the JESSICA possible . 4. We will follow on clinical condition and culture to further adjust medication if needed. Thank you for this consultation. Will follow this patient along with you. MMODL / IJN: [id number] /
[2020-07-31] MEDS: SODIUM CHLORIDE 0.9% 1,000 ML IV SCH ×3 (01:54→17:56)
[2020-07-31] MEDS: HYDROmorphone 1 MG/ML 1 ML SYRINGE IVP PRN ×10 (02:07→22:16)
[2020-07-31 04:19] LABS: Basophils # (A) 0.1 k/uL (0-0.2); Basophils % (A) 0 %; Eosinophils # (A) 0.1 k/uL (0-0.7); Eosinophils % (A) 1 %; HCT 29.4 % (34.0-46.0); Lymphocytes # (A) 1.2 k/uL (1.0-4.8); Lymphocytes % (A) 9 %; MCH 28.6 pg (25.0-35.0); MCHC 32.7 g/dL (31.0-37.0); MCV 87.7 fL (80.0-100.0); Mean Platelet Volume 10.4; Monocytes # (A) 0.6 k/uL (0-1.0); Monocytes % (A) 5 %; Neutrophils # (A) 11.5 k/uL (1.3-7.7); Neutrophils % (A) 83 %; RBC 3.35 m/uL (3.80-5.40); RDW 13.9 % (11.5-15.5)
[2020-07-31 04:27] LABS: African American GFR (CKD) >90 (>60 ml/min/1.73 sqM); Non-African American GFR(CKD) >90 (>60 ml/min/1.73 sqM)
[2020-07-31 04:38] LABS: Platelet Count 65 k/uL (150-450)
[2020-07-31 04:39] LABS: HGB 9.6 gm/dL (11.4-16.0)
[2020-07-31 06:09] LABS: ALT 18 U/L (4-34); AST 33 U/L (14-36); Albumin 2.2 g/dL (3.5-5.0); Alkaline Phosphatase 91 U/L (38-126); Anion Gap 6 mmol/L; Blood Urea Nitrogen 15 mg/dL (7-17); Calcium 7.6 mg/dL (8.4-10.2); Carbon Dioxide 23 mmol/L (22-30); Chloride 105 mmol/L (98-107); Glucose 111 mg/dL (74-99); Sodium 134 mmol/L (137-145); Total Bilirubin 0.8 mg/dL (0.2-1.3); Total Protein 5.2 g/dL (6.3-8.2)
[2020-07-31 06:19] LABS: Potassium 3.3 mmol/L (3.5-5.1)
[2020-07-31] MEDS ORDERED: Potassium Replacement Protocol 1 EACH MISC MISCELLANE PRN (06:23)
[2020-07-31] MEDS: POTASSIUM CHLORIDE 20 MEQ in WATER FOR INJECTION 1 100ML.BAG IVPB SCH ×2 (06:28→09:07)
--- NOTE | 2020-07-31 07:26 | XR ---
EXAMINATION TYPE: XR chest 1V portable DATE OF EXAM: 07/31/2020 COMPARISON: 07/30/2020 HISTORY: Shortness of breath TECHNIQUE: Single frontal view of the chest is obtained. FINDINGS: Wedge-shaped infiltrate within the right midlung zone persists. There are small associated pleural ef fusion. There is also airspace infiltrates are within the lateral aspect of the left lung base. Cardiomediastinal silhouette is stable. Right subclavian central venous line is in place. IMPRESSION: 1. Bilateral infiltrates. Correlate for pneumonia. Progress studies are recommended until resolution.
[2020-07-31] MEDS ORDERED: CEFEPIME 2 GM in SODIUM CHLORIDE 0.9% 100 ML IVPB SCH ×2 (09:00→16:00)
[2020-07-31] MEDS: VANCOMYCIN 1,500 MG in SODIUM CHLORIDE 0.9% 250 ML IVPB SCH ×2 (09:06→16:56)
--- NOTE | 2020-07-31 09:58 | P.PN ---
Subjective Progress Note Date: 07/31/20 Principal diagnosis: High suspicion for tricuspid valve endocarditis with septic emboli to the lungs, sepsis with hypotension, right midlung infiltrate, cavitary lesion and suspected emboli versus pneumonia, leukocytosis. Past medical history significant for IV drug abuse, heroin, bipolar disorder, anxiety, attention deficit hyperactivity disorder and chronic ongoing tobacco abuse. The patient was seen in follow-up today 07/31/2020 at her bedside in the intensive care unit. Currently she is laying in bed, is awake, alert and oriented 3. She is complaining of right-sided chest pain with inspiration, expiration, to palpate and continues to complain of shortness of breath. She is on room air with oxygen saturation is 92-93%. Bedside telemetry showing sinus tachycardia heart rate 109 BPM. Her blood pressure is 122/70 with a map of 87 and has been off the norepinephrine drip since 2 AM. 0.9% normal saline infusing at 130 mL per hour. T-max temperature in the last 24 hours has been 102.5F, she remains on Maxipime and vancomycin for IV antibiotic coverage, wh ich is being managed by infectious disease. 2 sets of blood culture results showed positive for gram-positive cocci in clusters. 2-D echocardiogram report unavailable at this time. Objective - Vital Signs Vital signs: Vital Signs Temp 99.0 F 07/31/20 08:00 Pulse 117 H 07/31/20 09:00 Resp 54 H 07/31/20 09:00 BP 119/60 07/31/20 09:00 Pulse Ox 89 L 07/31/20 09:00 Intake & Output 07/30/20 07/31/20 07/31/20 18:59 06:59 18:59 Intake Total 2529.664 2005.884 940 Output Total 810 755 275 Balance 063.348 8708.884 665 Weight 74.2 kg Intake: IV 1040 1660 390 0.9ns 1040 650 Cefepime 2 gm In Sodium 100 Chloride 0.9% 100 ml @ 200 mls/hr IVPB ONCE ONE Rx#:[id number] Sodium Chloride 0.9% 1, 910 390 000 ml @ 130 mls/hr IV . Q7H42M ON LICENSE OF [facility] Rx#:[id number] Intake, IV Titration 11.563 137.884 550 Amount Cefepime 2 gm In Sodium 200 Chloride 0.9% 100 ml @ 200 mls/hr IVPB ONCE ONE Rx#:[id number] Norepinephrine 32 mg In 11.563 12.884 Sodium Chloride 0.9% 218 ml @ 0.05 MCG/KG/MIN 1. 648 mls/hr IV .Q24H ONE Rx#:[id number] Potassium Chloride 20 meq 100 In Water For Injection 1 100ml.bag @ 50 mls/hr IVPB Q2H ON LICENSE OF [facility] Rx#: [id number] Vancomycin 1,500 mg In 125 250 Sodium Chloride 0.9% 250 ml @ 125 mls/hr IVPB Q16H ON LICENSE OF [facility] Rx#:[id number] Oral 300 600 Output: Urine 810 755 275 Other: Voiding Method Indwelling Catheter Indwelling Catheter Indwelling Catheter - Constitutional General appearance: Present: cooperative, no acute distress, obese - EENT Eyes: Present: normal appearance. Absent: scleral icterus ENT: Present: hearing grossly normal - Neck Details: Neck is supple, no JVD. - Respiratory Details: Lung sounds essentially clear to her upper lobes, few scattered crackles to bilateral bases. Respirations are symmetrical and nonlabored. Oxygen saturation is 92-93% on room air. - Cardiovascular Details: Regular rhythm and tachycardic rate. S1 and S2 present, negative for S3 or gallop. Positive systolic murmur heard best to her left sternal border fifth intercostal space. Knee-high sequential compression devices in place to b ilateral lower extremities. - Gastrointestinal Gastrointestinal Comment(s): Abdomen is soft, nontender and nondistended. Active bowel sounds present all 4 abdominal quadrants. No guarding or rigidity. - Genitourinary Genitourinary Comment(s): Rajan catheter for accurate I&O. Draining clear yellow urine. - Integumentary Integumentary Comment(s): Skin is warm and dry. No clubbing or cyanosis present. - Neurologic Neurologic: Present: CNII-XII intact. Absent: focal deficits - Musculoskeletal Musculoskeletal: Present: strength equal bilaterally - Psychiatric Psychiatric: Present: A&O x's 3, appropriate affect, intact judgment & insight - Allied health notes Allied health notes reviewed: nursing - Labs CBC & Chem 7: 07/31/20 03:55 07/31/20 03:55 Labs: Abnormal Lab Results - Last 24 Hours (Table) 07/30/20 07/30/20 07/30/20 Range/Units 11:33 11:33 11:33 WBC (3.8-10.6) k/uL RBC (3.80-5.40) m/uL Hgb (11.4-16.0) gm/dL Hct (34.0-46.0) % Plt Count (150-450) k/uL Neutrophils # (1.3-7.7) k/uL Sodium (137-145) mmol/L Potassium (3.5-5.1) mmol/L Glucose (74-99) mg/dL POC Glucose (mg/dL) 105 H (75-99) mg/dL Calcium (8.4-10.2) mg/dL Total Protein (6.3-8.2) g/dL Albumin (3.5-5.0) g/dL Procalcitonin 4.06 H (0.02-0.09) ng/mL Hep Bs Antibody Reactive A (Non-Reactive) Hep C IgG Ab Reactive A (Non-Reactive) 07/31/20 07/31/20 Range/Units 03:55 03:55 WBC 14.0 H (3.8-10.6) k/uL RBC 3.35 L (3.80-5.40) m/uL Hgb 9.6 L D (11.4-16.0) gm/dL Hct 29.4 L (34.0-46.0) % Plt Count 65 L (150-450) k/uL Neutrophils # 11.5 H (1.3-7.7) k/uL Sodium 134 L (137-145) mmol/L Potassium 3.3 L (3.5-5.1) mmol/L Glucose 111 H (74-99) mg/dL POC Glucose (mg/dL) (75-99) mg/dL Calcium 7.6 L (8.4-10.2) mg/dL Total Protein 5.2 L (6.3-8.2) g/dL Albumin 2.2 L (3.5-5.0) g/dL Procalcitonin (0.02-0.09) ng/mL Hep Bs Antibody (Non-Reactive) Hep C IgG Ab (Non-Reactive) Microbiology - Last 24 Hours (Table) 07/30/20 12:17 Blood Culture - Final Blood 07/30/20 11:34 Blood Culture - Final Blood 07/30/20 07:49 Urine Culture - Preliminary Urine,Voided - Imaging and Cardiology Chest x-ray: report reviewed, image reviewed Assessment and Plan Assessment: 1. High suspicion for tricuspid valve endocarditis with septic emboli to the lungs 2. Right midlung infiltrate, cavitary lesion, suspected septic emboli versus pneumonia 3. Sepsis with hypotension, currently on norepinephrine drip 4. Leukocytosis secondary to above 5. Fever, secondary to above 6. History of IV drug abuse, heroin 7. Bipolar disorder 8. Anxiety 9. Attention deficit hyperactivity disorder 10. Chronic ongoing tobacco abuse Plan: 1. Continue to follow blood cultures. 2. Antibiotic management recommendations per infectious disease. 3. 2-D echocardiogram results pending. Recommend JESSICA for further evaluation of left-sided valves. 4. Encourage use of incentive spirometry 10 times every hour while awake. 5. No class one indication for surgical intervention at this time. 6. Discussed and reinforced the importance of smoking cessation and drug use cessation. 7. More recommendations to follow based on patient's clinical course. Time with Patient: Greater than 30
[2020-07-31] MEDS ORDERED: LORazepam 1 MG TAB PO PRN (11:26)
--- NOTE | 2020-07-31 11:52 | P.PN ---
Subjective Progress Note Date: 07/31/20 Principal diagnosis: Right-sided chest pain, suspected septic emboli, tricuspid vegetation This is a pleasant 30-year-old female patient with a known history of ADHD, bipolar disorder, severe anxiety, chronic tobacco dependence. She follows at [facility] as well as with a Dr. Sidhu for Suboxone. She also has a history of IV drug abuse that she had done for approximately 4 years then states she was clean for 4 years. Unfortunately in June 2020 she started using IV heroin again. Approximate 4 days ago she started having migraines which turned into nausea, vomiting and diarrhea. She had chills. Unsure if she had a fever. Last evening she started developed some right-sided chest pain but tried to sleep however woke up earlier this morning and was more severe and she presented to the emergency room just after midnight. CT angiogram ruled out any large or central pulmonary emboli. Suboptimal contrast. There is noted scattered irregular peripheral patchy groundglass opacities throughout the lungs. There is also scattered lesions with some cavitary lesion more so on the right upper lobe raising the possibility of septic emboli with central necrosis. White count 11.5. Hemoglobin 11.2. Platelet count 50,000. Lymphocytes 0.6. Sodium 132. Potassium 3.8. Creatinine 1.35. Urine with moderate blood and moderate leukocytosis. Urine hCG negative. Coronavirus by PCR negative. Initial lactic acid 2.7. Currently 0.9. She did receive 2 L of fluid resuscitation. She was given vancomycin and Zosyn. She's been hypotensive and is currently on norepinephrine at 0.05 mcg/kg/m, approximately 3.5 mcg/m. 0.9 normal saline at 130 ML's per hour. She is seen in consultation in the emergency room. She is currently awake and alert. She is still having right- sided chest discomfort. No worsening shortness of breath, cough or congestion. Maintaining O2 saturation in the 90s on room air. Echocardiogram is pending was concerns of vegetation. CT services have been consulted. The patient is seen today 07/31/2020 in follow-up in the intensive care unit. She is currently resting comfortably in bed. Awake and alert in no acute distr ess. She is maintaining O2 saturation in the 90s on room air. The past 24 hours did have a T-max of 102.5. Currently 99.0. She has 0.9 normal saline running at 130 ML's per hour. She has been weaned off the norepinephrine. Blood pressure currently stable. She denies any worsening shortness of breath, cough or congestion. Still with some right-sided chest discomfort. Echocardiogram results are pending. Plan is for JESSICA in a.m. White count 14.0. Hemoglobin 9.6. Platelet count 65,000. Sodium 134. Potassium 3.3. Bicarb 23. Creatinine 0.71. Pro-calcitonin 4.06. Hepatitis B and C antibodies are reactive. HIV results are pending. Blood cultures were positive for gram- positive cocci in clusters. She remains on vancomycin and cefepime. Objective - Vital Signs Vital signs: Vital Signs Temp 99.0 F 07/31/20 08:00 Pulse 106 H 07/31/20 11:00 Resp 56 H 07/31/20 11:00 BP 124/74 07/31/20 11:00 Pulse Ox 92 L 07/31/20 11:00 Intake & Output 07/30/20 07/31/20 07/31/20 18:59 06:59 18:59 Intake Total 7678.485 7250.884 1200 Output Total 810 755 460 Balance 042.898 6153.884 740 Weight 74.2 kg Intake: IV 1040 1660 650 0.9ns 1040 650 Cefepime 2 gm In Sodium 100 Chloride 0.9% 100 ml @ 200 mls/hr IVPB ONCE ONE Rx#:[id number] Sodium Chloride 0.9% 1, 910 650 000 ml @ 130 mls/hr IV . Q7H42M [facility] Rx#:[id number] Intake, IV Titration 11.563 137.884 550 Amount Cefepime 2 gm In Sodium 200 Chloride 0.9% 100 ml @ 200 mls/hr IVPB ONCE ONE Rx#:[id number] Norepinephrine 32 mg In 11.563 12.884 Sodium Chloride 0.9% 218 ml @ 0.05 MCG/KG/MIN 1. 648 mls/hr IV .Q24H ONE Rx#:[id number] Potassium Chloride 20 meq 100 In Water For Injection 1 100ml.bag @ 50 mls/hr IVPB Q2H [facility] Rx#: [id number] Vancomycin 1,500 mg In 125 250 Sodium Chloride 0.9% 250 ml @ 125 mls/hr IVPB Q16H [facility] Rx#:[id number] Oral 300 600 Output: Urine 810 755 460 Other: Voiding Method Indwelling Catheter Indwelling Catheter Indwelling Catheter - Exam GENERAL EXAM: Alert, pleasant 30-year-old female patient, on room air, fairly comfortable in no apparent distress. HEAD: Normocephalic. EYES: Normal reaction of pupils, equal size. NOSE: Clear with pink turbinates. THROAT: No erythema or exudates. NECK: No masses, no JVD. CHEST: No chest wall deformity. LUNGS: Equal air entry with few scattered rhonchi more so on the right lung CVS: S1 and S2 normal with an audible murmur, regular rhythm. ABDOMEN: No hepatosplenomegaly, normal bowel sounds, no guarding or rigidity. SPINE: No scoliosis or deformity SKIN: No rashes CENTRAL NERVOUS SYSTEM: No focal deficits, tone is normal in all 4 extremities. EXTREMITIES: There is no peripheral edema. No clubbing, no cyanosis. Peripheral pulses are intact. - Labs CBC & Chem 7: 07/31/20 03:55 07/31/20 03:55 Labs: Abnormal Lab Results - Last 24 Hours (Table) 07/30/20 07/30/20 07/31/20 Range/Units 11:33 11:33 03:55 WBC 14.0 H (3.8-10.6) k/uL RBC 3.35 L (3.80-5.40) m/uL Hgb 9.6 L D (11.4-16.0) gm/dL Hct 29.4 L (34.0-46.0) % Plt Count 65 L (150-450) k/uL Neutrophils # 11.5 H (1.3-7.7) k/uL Sodium (137-145) mmol/L Potassium (3.5-5.1) mmol/L Glucose (74-99) mg/dL Calcium (8.4-10.2) mg/dL Total Protein (6.3-8.2) g/dL Albumin (3.5-5.0) g/dL Procalcitonin 4.06 H (0.02-0.09) ng/mL Hep Bs Antibody Reactive A (Non-Reactive) Hep C IgG Ab Reactive A (Non-Reactive) 07/31/20 Range/Units 03:55 WBC (3.8-10.6) k/uL RBC (3.80-5.40) m/uL Hgb (11.4-16.0) gm/dL Hct (34.0-46.0) % Plt Count (150-450) k/uL Neutrophils # (1.3-7.7) k/uL Sodium 134 L (137-145) mmol/L Potassium 3.3 L (3.5-5.1) mmol/L Glucose 111 H (74-99) mg/dL Calcium 7.6 L (8.4-10.2) mg/dL Total Protein 5.2 L (6.3-8.2) g/dL Albumin 2.2 L (3.5-5.0) g/dL Procalcitonin (0.02-0.09) ng/mL Hep Bs Antibody (Non-Reactive) Hep C IgG Ab (Non-Reactive) Microbiology - Last 24 Hours (Table) 07/30/20 12:17 Blood Culture Gram Stain - Preliminary Blood 07/30/20 11:34 Blood Culture Gram Stain - Preliminary Blood 07/30/20 12:17 Blood Culture - Final Blood 07/30/20 11:34 Blood Culture - Final Blood 07/30/20 07:49 Urine Culture - Preliminary Urine,Voided Assessment and Plan Assessment: 1 Sepsis with hypotension, dehydration. Blood cultures positive for gram- positive cocci in groups. 2 Right midlung infiltrate in addition to lesions, cavitary lesion, suspect septic emboli versus pneumonia 3 Sepsis with hypotension requiring norepinephrine for bacteremia secondary to IV drug use 4 Leukocytosis secondary to above, white count 14.0 5 Thrombocytopenia secondary to above 6 Acute renal failure secondary to above, improved current creatinine 0.71 7 IV drug use 8 History of ADHD 9 History of anxiety 10 Bipolar disorder 11 Hepatitis C 12 Hepatitis B reactive antibodies Plan: The patient was seen and evaluated by Dr. Metz Echocardiogram pending, JESSICA in a.m. Continue vancomycin and cefepime Currently off pressors Continue to monitor closely here in the ICU We will continue to follow and make further recommendations based on her clinical status Critical care time 35 minutes I, the cosigning physician, performed a history & physical examination of the patient. Lungs sounds with few scattered rhonchi more so on the right lung. Maintaining good O2 saturations in the 90s on room air. I discussed the assessment and plan of care with my nurse practitioner, Talita Moreno. I attest to the above note as dictated by her.
--- NOTE | 2020-07-31 12:15 | P.PN ---
Subjective Progress Note Date: 07/31/20 Principal diagnosis: High suspicion for tricuspid valve endocarditis with septic emboli to the lungs Sepsis Right midlung infiltrate- cavitary lesion/suspected emboli 30-year-old female patient admitted on high suspicion for tricuspid valve endocarditis with septic emboli to the lungs, sepsis with hypotension, right midlung infiltrate, cavitary lesion and suspected emboli versus pneumonia, leukocytosis. Past medical history significant for IV drug abuse, heroin, bipolar disorder, anxiety, attention deficit hyperactivity disorder and chronic ongoing tobacco abuse. 07/31/2020 Patient is seen and evaluated at bedside in ICU; currently resting comfortably in bed; does tend to hold her breath and complaining of chest pain while talking Vital signs are stable with a temperature of 99, pulse 117, respiration 24 and blood pressure of 119/60; patient is currently off levophed Remains on IV cefepime and vancomycin; IDs on board; patient's blood cultures have been positive for gram-positive cocci in clusters 2 out of 2 sets; 2-D echo is done and results are pending Cardiothoracic surgery is on board and recommend JESSICA for further evaluation of left-sided Paige's; patient does not have any class I indication for surgical intervention at this time We will start patient on IV Ativan to be used when necessary for anxiety May be transferred out of ICU later today for remains stable Objective - Vital Signs Vital signs: Vital Signs Temp 99.0 F 07/31/20 08:00 Pulse 117 H 07/31/20 09:00 Resp 54 H 07/31/20 09:00 BP 119/60 07/31/20 09:00 Pulse Ox 89 L 07/31/20 09:00 Intake & Output 07/30/20 07/31/20 07/31/20 18:59 06:59 18:59 Intake Total 0365.319 2376.884 940 Output Total 810 755 275 Balance 832.600 9794.884 665 Weight 74.2 kg Intake: IV 1040 1660 390 0.9ns 1040 650 Cefepime 2 gm In Sodium 100 Chloride 0.9% 100 ml @ 200 mls/hr IVPB ONCE ONE Rx#:[id number] Sodium Chloride 0.9% 1, 910 390 000 ml @ 130 mls/hr IV . Q7H42M [facility] Rx#:[id number] Intake, IV Titration 11.563 137.884 550 Amount Cefepime 2 gm In Sodium 200 Chloride 0.9% 100 ml @ 200 mls/hr IVPB ONCE ONE Rx#:[id number] Norepinephrine 32 mg In 11.563 12.884 Sodium Chloride 0.9% 218 ml @ 0.05 MCG/KG/MIN 1. 648 mls/hr IV .Q24H ONE Rx#:[id number] Potassium Chloride 20 meq 100 In Water For Injection 1 100ml.bag @ 50 mls/hr IVPB Q2H [facility] Rx#: [id number] Vancomycin 1,500 mg In 125 250 Sodium Chloride 0.9% 250 ml @ 125 mls/hr IVPB Q16H [facility] Rx#:[id number] Oral 300 600 Output: Urine 810 755 275 Other: Voiding Method Indwelling Catheter Indwelling Catheter Indwelling Catheter - Exam GENERAL EXAM: Alert, pleasant 30-year-old female patient, on room air, fairly comfortable in no apparent distress. HEAD: Normocephalic. EYES: Normal reaction of pupils, equal size. NOSE: Clear with pink turbinates. THROAT: No erythema or exudates. NECK: No masses, no JVD. CHEST: No chest wall deformity. LUNGS: Equal air entry with few scattered rhonchi more so on the right lung CVS: S1 and S2 normal with an audible murmur, regular rhythm. ABDOMEN: No hepatosplenomegaly, normal bowel sounds, no guarding or rigidity. SPINE: No scoliosis or deformity SKIN: No rashes CENTRAL NERVOUS SYSTEM: No focal deficits, tone is normal in all 4 extremities. EXTREMITIES: There is no peripheral edema. No clubbing, no cyanosis. Perip heral pulses are intact. - Labs CBC & Chem 7: 07/31/20 03:55 07/31/20 03:55 Labs: Abnormal Lab Results - Last 24 Hours (Table) 07/30/20 07/30/20 07/30/20 Range/Units 11:33 11:33 11:33 WBC (3.8-10.6) k/uL RBC (3.80-5.40) m/uL Hgb (11.4-16.0) gm/dL Hct (34.0-46.0) % Plt Count (150-450) k/uL Neutrophils # (1.3-7.7) k/uL Sodium (137-145) mmol/L Potassium (3.5-5.1) mmol/L Glucose (74-99) mg/dL POC Glucose (mg/dL) 105 H (75-99) mg/dL Calcium (8.4-10.2) mg/dL Total Protein (6.3-8.2) g/dL Albumin (3.5-5.0) g/dL Procalcitonin 4.06 H (0.02-0.09) ng/mL Hep Bs Antibody Reactive A (Non-Reactive) Hep C IgG Ab Reactive A (Non-Reactive) 07/31/20 07/31/20 Range/Units 03:55 03:55 WBC 14.0 H (3.8-10.6) k/uL RBC 3.35 L (3.80-5.40) m/uL Hgb 9.6 L D (11.4-16.0) gm/dL Hct 29.4 L (34.0-46.0) % Plt Count 65 L (150-450) k/uL Neutrophils # 11.5 H (1.3-7.7) k/uL Sodium 134 L (137-145) mmol/L Potassium 3.3 L (3.5-5.1) mmol/L Glucose 111 H (74-99) mg/dL POC Glucose (mg/dL) (75-99) mg/dL Calcium 7.6 L (8.4-10.2) mg/dL Total Protein 5.2 L (6.3-8.2) g/dL Albumin 2.2 L (3.5-5.0) g/dL Procalcitonin (0.02-0.09) ng/mL Hep Bs Antibody (Non-Reactive) Hep C IgG Ab (Non-Reactive) Microbiology - Last 24 Hours (Table) 07/30/20 12:17 Blood Culture - Final Blood 07/30/20 11:34 Blood Culture - Final Blood 07/30/20 07:49 Urine Culture - Preliminary Urine,Voided Assessment and Plan Assessment: 1. Right midlung infiltrate/cavitary lesion/suspected septic emboli versus pneumonia - Patient is started on IV Zosyn and vancomycin; echocardiogram is ordered and pending to rule out valvular vegetations; cardiothoracic surgery is consulted - HIV screen and hepatitis is ordered and pending 2. Sepsis with hypotension; patient requires norepinephrine; patient remains on continuous IV fluid resuscitation; we will try to titrate pressors as tolerated 3. UTI; IV antibiotics as indicated above; we will adjust antibiotic treatment 4. Acute renal injury; continue with IV fluid resuscitation as indicated above; we will monitor strict SHREYAS's; daily weights, renal function and electrolytes; avoid nephrotoxic agents 5. IV drug abuse; counseling done 6. History of ADHD; continue with outpatient psych follow-up 7. Bipolar disorder; outpatient psych follow-up DVT prophylaxis; SCDs/subcu heparin CODE STATUS; full code
[2020-07-31] MEDS: LORazepam 2 MG/ML INJ IV PRN ×2 (13:25→20:34)
--- NOTE | 2020-07-31 15:34 | ECHOF ---
Referral Reason: MEASUREMENTS -------- HEIGHT: 162.6 cm WEIGHT: 70.3 kg BP: IVSd: 0.7 cm (0.6 - 1.1) LVIDd: 4.4 cm (3.9 - 5.3) LVPWd: 1.0 cm (0.6 - 1.1) IVSs: 1.4 cm LVIDs: 2.9 cm LVPWs: 1.4 cm RVIDd: 2.8 cm (< 3.3) Ao Diam: 2.3 cm (2.0 - 3.7) LA Diam: 2.3 cm (2.7 - 3.8) AV Cusp: 1.4 cm (1.5 - 2.6) EPSS: 0.2 cm MV E Praful: 0.94 m/s MV DecT: 217 ms MV A Praful: 0.68 m/s MV E/A Ratio: 1.37 RAP: 5.00 mmHg RVSP: 59.73 mmHg MV EF SLOPE: 127.89 mm/s (70 - 150) MV EXCURSION: 19.13 mm (> 18.000) FINDINGS -------- This was a technically adequate study. The left ventricular size is normal. Left ventricular wall thickness is normal. Overall left vent ricular systolic function is normal with, an EF between 55 - 60 %. The diastolic filling pattern is normal for the age of the patient 8.67. The right ventricle is normal in size. The left atrial size is normal. Normal LA size by volume 22+/-6 ml/m2. The right atrial size is normal. The aortic valve is trileaflet and appears structurally normal. The mitral valve is normal. There is trace mitral regurgitation. The tricuspid valve appears structurally normal. Mild tricuspid regurgitation present. There is m oderate pulmonary hypertension. The right ventricular systolic pressure, as measured by Doppler, is 59.73mmHg. Cannot rule out vegetation. There is no pulmonic regurgitation present. The aortic root size is normal. Normal inferior vena cava with normal inspiratory collapse consistent with estimated right atrial pre ssure of 5 mmHg. There is no pericardial effusion. CONCLUSIONS -------- 1. The left ventricular size is normal. 2. Left ventricular wall thickness is normal. 3. Overall left ventricular systolic function is normal with, an EF between 55 - 60 %. 4. The diastolic filling pattern is normal for the age of the patient 8.67 5. There is trace mitral regurgitation. 6. Mild tricuspid regurgitation present. 7. There is moderate pulmonary hypertension. 8. The right ventricular systolic pressure, as measured by Doppler, is 59.73mmHg. 9. Cannot rule out vegetation. 10. There is no pericardial effusion. LEAD INVESTIGATOR: Caitlyn Montano RDCS
--- NOTE | 2020-07-31 22:56 | PN ---
PROGRESS NOTE DATE OF SERVICE: 07/31/2020 REASON FOR FOLLOWUP: MRSA endocarditis with septic emboli. INTERVAL HISTORY: The patient is currently running a low-grade fever of 100.4. The patient still complaining of chest pain. She denies any cough or sputum production. No nausea, no vomiting, no diarrhea. PHYSICAL EXAMINATION: Blood pressure 132/69, pulse of 109. Temperature 100.4. She is 94% on room air. General description: The patient is a young female lying in bed in no distress. Respiratory system: Unlabored breathing, decreased breath sounds in the base, with no wheeze. Heart: S1, S2. Regular rate and rhythm. ABDOMEN: Soft, no tenderness. EXTREMITIES: No edema of the feet. LABS: Hemoglobin 9.1, white count 14, BUN of 15, creatinine 0.71. Blood culture with MRSA. DIAGNOSTIC IMPRESSION AND PLAN: Patient with MRSA bacteremia, source likely enterococcus endocarditis. The patient to continue with vancomycin and cefepime will be discontinued tomorrow and continue supportive care. MMODL / IJN: [id number] /
[2020-08-01] MEDS: LORazepam 2 MG/ML INJ IV PRN ×3 (00:18→21:07)
[2020-08-01] MEDS: HYDROmorphone 1 MG/ML 1 ML SYRINGE IVP PRN ×6 (00:18→21:05)
[2020-08-01] MEDS: VANCOMYCIN 1,500 MG in SODIUM CHLORIDE 0.9% 250 ML IVPB SCH ×3 (01:26→17:09)
[2020-08-01] MEDS: SODIUM CHLORIDE 0.9% 1,000 ML IV SCH ×3 (04:27→17:17)
[2020-08-01] MEDS: POTASSIUM CHLORIDE 20 MEQ in WATER FOR INJECTION 1 100ML.BAG IVPB SCH ×2 (07:21→10:19)
[2020-08-01] MEDS ORDERED: VANCOMYCIN TROUGH DUE 1 EACH MISC MISCELLANE ONE (08:00)
--- NOTE | 2020-08-01 08:08 | P.PN ---
Subjective Progress Note Date: 08/01/20 Right-sided chest pain, suspected septic emboli, tricuspid vegetation This is a pleasant 30-year-old female patient with a known history of ADHD, bipolar disorder, severe anxiety, chronic tobacco dependence. [facility] [place] [facility] as well as with a Dr. Sidhu for Suboxone. She also has a history of IV drug abuse that she had done for approximately 4 years then states she was clean for 4 years. Unfortunately in June 2020 she started using IV heroin again. Approximate 4 days ago she started having migraines which turned into nausea, vomiting and diarrhea. She had chills. Unsure if she had a fever. Last evening she started developed some right-sided chest pain but tried to sleep however woke up earlier this morning and was more severe and she presented to the emergency room just after midnight. CT angiogram ruled out any large or central pulmonary emboli. Suboptimal contrast. There is noted scattered irregular peripheral patchy groundglass opacities throughout the lungs. There is also scattered lesions with some cavitary lesion more so on the right upper lobe raising the possibility of septic emboli with central necrosis. White count 11.5. Hemoglobin 11.2. Platelet count 50,000. Lymphocytes 0.6. Sodium 132. Potassium 3.8. Creatinine 1.35. Urine with moderate blood and moderate leukocytosis. Urine hCG negative. Coronavirus by PCR negative. Initial lactic acid 2.7. Currently 0.9. She did receive 2 L of fluid resuscit ation. She was given vancomycin and Zosyn. She's been hypotensive and is currently on norepinephrine at 0.05 mcg/kg/m, approximately 3.5 mcg/m. 0.9 normal saline at 130 ML's per hour. She is seen in consultation in the emergency room. She is currently awake and alert. She is still having right- sided chest discomfort. No worsening shortness of breath, cough or congestion. Maintaining O2 saturation in the 90s on room air. Echocardiogram is pending was concerns of vegetation. CT services have been consulted. The patient is seen today 07/31/2020 in follow-up in the intensive care unit. She is currently resting comfortably in bed. Awake and alert in no acute distress. She is maintaining O2 saturation in the 90s on room air. The past 24 hours did have a T-max of 102.5. Currently 99.0. She has 0.9 normal saline running at 130 ML's per hour. She has been weaned off the norepinephrine. Blood pressure currently stable. She denies any worsening shortness of breath, cough or congestion. Still with some right-sided chest discomfort. Echocardiogram results are pending. Plan is for JESSICA in a.m. White count 14.0. Hemoglobin 9.6. Platelet count 65,000. Sodium 134. Potassium 3.3. Bicarb 23. Creatinine 0.71. Pro-calcitonin 4.06. Hepatitis B and C antibodies are reactive. HIV results are pending. Blood cultures were positive for gram- positive cocci in clusters. She remains on vancomycin and cefepime. On 08/01/2020 the patient is being seen in follow-up in the intensive care unit. The patient is currently being treated for infected endocarditis with secondary pulmonary infiltrates/pneumonia/septic emboli. The patient's with cultures positive for staph aureus and the patient is currently on vancomycin. Also, a 2-D echocardiogram showing moderate pulmonary hypertension, right-sided pressures of 59 mmHg an underlying vegetation cannot be predicted ruled out involving the tricuspid valve. LV is within normal. A JESSICA is to follow today. The patient remains normal saline 130 mL an hour. The patient remains on IV vancomycin. Appropriate calcitonin level was at 4.0. She is afebrile. She is slightly tachycardic today. No nausea. No vomiting. No emesis. She does have some vague abdominal pain mainly in the right upper quadrant area. Her liver function tested and within normal limits. The liver function tests from this morning was within normal limits. The patient is supposed to undergo a JESSICA today. Blood cultures positive for MRSA. Objective - Vital Signs Vital signs: Vital Signs Temp 98.4 F 08/01/20 04:00 Pulse 115 H 08/01/20 07:00 Resp 18 08/01/20 07:00 BP 130/82 08/01/20 07:00 Pulse Ox 87 L 08/01/20 07:00 Intake & Output 07/31/20 08/01/20 08/01/20 18:59 06:59 18:59 Intake Total 2310 1860 130 Output Total 880 1005 50 Balance 1430 855 80 Weight 76.5 kg Intake: IV 1560 1560 130 Sodium Chloride 0.9% 1, 1560 1560 130 000 ml @ 130 mls/hr IV . Q7H42M [facility] Rx#:[id number] Intake, IV Titration 550 Amount Cefepime 2 gm In Sodium 200 Chloride 0.9% 100 ml @ 200 mls/hr IVPB ONCE ONE Rx#:[id number] Potassium Chloride 20 meq 100 In Water For Injection 1 100ml.bag @ 50 mls/hr IVPB Q2H [facility] Rx#: [id number] Vancomycin 1,500 mg In 250 Sodium Chloride 0.9% 250 ml @ 125 mls/hr IVPB Q16H [facility] Rx#:[id number] Oral 200 300 Output: Urine 880 1005 50 Other: Voiding Method Indwelling Catheter Indwelling Catheter - Exam GENERAL EXAM: Alert, pleasant 30-year-old female patient, on room air, the patient is seeking a bit uncomfortable and tachypneic on today's evaluation. She also has tachycardia. Pulse ox is around 92% on room air oxygen. HEAD: Normocephalic. EYES: Normal reaction of pupils, equal size. NOSE: Clear with pink turbinates. THROAT: No erythema or exudates. NECK: No masses, no JVD. CHEST: No chest wall deformity. LUNGS: Equal air entry with few scattered rhonchi more so on the right lung CVS: S1 and S2 normal with an audible murmur, regular rhythm. ABDOMEN: No hepatosplenomegaly, normal bowel sounds, no guarding or rigidity. SPINE: No scoliosis or deformity SKIN: No rashes CENTRAL NERVOUS SYSTEM: No focal deficits, tone is normal in all 4 extremities. EXTREMITIES: There is no peripheral edema. No clubbing, no cyanosis. Peripheral pulses are intact. - Labs CBC & Chem 7: 07/31/20 03:55 07/31/20 03:55 Labs: Microbiology - Last 24 Hours (Table) 07/30/20 11:34 Blood Culture Gram Stain - Preliminary Blood Blood Culture - Preliminary Presumptive MRSA 07/30/20 12:17 Blood Culture Gram Stain - Preliminary Blood Blood Culture - Preliminary Presumptive MRSA 07/30/20 07:49 Urine Culture - Final Urine,Voided Assessment and Plan Plan: 1 Sepsis septic shock secondary to infective endocarditis and staphylococcal bacteremia/MRSA. The blood cultures positive for staph aureus/MRSA and the patient is currently on vancomycin 2 Right midlung infiltrate in addition to lesions, cavitary lesion, suspect septic emboli with a component of pneumonia 3 Sepsis with hypotension requiring norepinephrine for bacteremia secondary to IV drug use 4 Leukocytosis secondary to above 5 Thrombocytopenia secondary to above, most likely consumptive secondary septic shock, plt is 65K improved compared to yesterday 6 Acute renal failure secondary to above, improved 7 IV drug use 8 History of ADHD 9 History of anxiety 10 Bipolar disorder 11 Hepatitis C 12 Hepatitis B reactive antibodies Plan: Echocardiogram pending, JESSICA today Continue vancomycin Currently off pressors Check amylase and lipase Check ultrasound the liver and the gallbladder as the patient is having some right upper quadrant pain The patient nothing by mouth for now Continue IV fluids at the rate of 130 mL an hour of normal saline Repeat 2 sets of blood cultures as a follow-up The patient has a right subclavian triple-lumen catheter Continue to monitor closely here in the ICU We will continue to follow and make further recommendations based on her clinical status Critical care time 35 minutes
[2020-08-01] MEDS ORDERED: MIDAZOLAM 1 MG/ML 5 ML VIAL IV STA (08:39)
--- NOTE | 2020-08-01 08:55 | P.PN ---
Subjective Progress Note Date: 08/01/20 Principal diagnosis: Infective endocarditis endocarditis with staphylococcal bacteremia/MRSA, septic emboli to the lungs, sepsis with hypotension, right midlung infiltrate, cavitary lesion and suspected emboli versus pneumonia, leukocytosis, hepatitis B reactive antibodies and hepatitis C. Past medical history significant for IV drug abuse, heroin, bipolar disorder, anxiety, attention deficit hyperactivity disorder and chronic ongoing tobacco abuse. The patient was seen in follow-up today 08/01/2020 at her bedside in the intensive care unit. Currently she is laying in bed, is awake, alert and oriented 3. The patient remains complaining of shortness of breath and is somewhat tachypneic this morning with respiratory rate in the high 30s to low 40s, reports her right-sided chest pain has improved today from yesterday although is complaining of some right upper quadrant abdominal pain this morning and is quite tender with palpation. Blood cultures from 2 sets are showing presumptive MRSA, presumptive endocarditis, which is currently being treated with vancomycin and is managed by infectious disease. She is scheduled for a JESSICA this morning and remains nothing by mouth at this time. IV fluids infusing 0.9% normal saline at 130 mL per hour. Laboratory results are unavailable at this time. Bedside telemetry showing sinus tachycardia heart rate 120 bpm at this time, blood pressure 131/80 and oxygen saturation is 92% on room air. T- max temperature in the last 24 hours 100.4F. She is achieving 250-500 mL on her incentive spirometry with encouragement. 2-D echocardiogram results show an overall left ventricular systolic function to be normal with an ejection fraction between 55 and 60%, trace mitral valve regurgitation, mild tricuspid valve regurgitation, moderate pulmonary hypertension, and the report states they could not rule out vegetation. Objective - Vital Signs Vital signs: Vital Signs Temp 98.4 F 08/01/20 04:00 Pulse 120 H 08/01/20 08:00 Resp 30 H 08/01/20 08:00 BP 131/80 08/01/20 08:00 Pulse Ox 92 L 08/01/20 08:00 Intake & Output 07/31/20 08/01/20 08/01/20 18:59 06:59 18:59 Intake Total 2310 1860 130 Output Total 880 1005 50 Balance 1430 855 80 Weight 76.5 kg Intake: IV 1560 1560 130 Sodium Chloride 0.9% 1, 1560 1560 130 000 ml @ 130 mls/hr IV . Q7H42M [facility] Rx#:[id number] Intake, IV Titration 550 Amount Cefepime 2 gm In Sodium 200 Chloride 0.9% 100 ml @ 200 mls/hr IVPB ONCE ONE Rx#:[id number] Potassium Chloride 20 meq 100 In Water For Injection 1 100ml.bag @ 50 mls/hr IVPB Q2H [facility] Rx#: [id number] Vancomycin 1,500 mg In 250 Sodium Chloride 0.9% 250 ml @ 125 mls/hr IVPB Q16H [facility] Rx#:[id number] Oral 200 300 Output: Urine 880 1005 50 Other: Voiding Method Indwelling Catheter Indwelling Catheter - Constitutional General appearance: Present: cooperative, no acute distress, obese - EENT Eyes: Present: poor dentition, normal appearance. Absent: scleral icterus ENT: Present: hearing grossly normal - Neck Details: Neck is supple, no JVD. - Respiratory Details: Lung sounds essentially clear throughout, with few scattered rhonchi. Respirations are symmetrical and tachypneic. Oxygen saturation is 92% on room air. Achieving 250-500 mL on her incentive spirometry with encouragement. - Cardiovascular Details: Regular rhythm and tachycardic rate. S1 and S2 present, negative for S3 or gallop. Positive systolic murmur heard best were less sternal border fifth intercostal space. Knee-high sequential compression devices in place to bilateral lower extremities. - Gastrointestinal Gastrointestinal Comment(s): Abdomen is soft, nondistended and tender to her right upper quadrant. Active bowel sounds present all 4 abdominal quadrants. Passing flatus. - Genitourinary Genitourinary Comment(s): Rajan catheter for accurate I&O. Draining clear yellow urine. - Integumentary Integumentary Comment(s): Skin is warm and dry. No clubbing or cyanosis is present. - Neurologic Neurologic: Present: CNII-XII intact. Absent: focal deficits - Musculoskeletal Musculoskeletal: Present: strength equal bilaterally - Psychiatric Psychiatric: Present: A&O x's 3, appropriate affect, intact judgment & insight - Allied health notes Allied health notes reviewed: nursing - Labs CBC & Chem 7: 07/31/20 03:55 07/31/20 03:55 Labs: Microbiology - Last 24 Hours (Table) 07/30/20 11:34 Blood Culture Gram Stain - Preliminary Blood Blood Culture - Preliminary Presumptive MRSA 07/30/20 12:17 Blood Culture Gram Stain - Preliminary Blood Blood Culture - Preliminary Presumptive MRSA 07/30/20 07:49 Urine Culture - Final Urine,Voided Assessment and Plan Assessment: 1. Infective endocarditis with septic emboli to the lungs, blood cultures positive for presumptive MRSA 2. Right midlung infiltrate, cavitary lesion, suspected septic emboli versus pneumonia 3. Sepsis with hypotension, currently on norepinephrine drip 4. Leukocytosis secondary to above 5. Fever, secondary to above 6. Thrombocytopenia, possibly secondary to septic shock 7. Acute renal failure secondary to above 8. History of IV drug abuse, heroin 9. Bipolar disorder 10. Anxiety 11. Attention deficit hyperactivity disorder 12. Chronic ongoing tobacco abuse 13. Hepatitis C reactive antibodies 14. Hepatitis B reactive antibodies Plan: 1. Continue to follow blood cultures, preliminary results show presumptive MRSA on 2 sets. 2. Antibiotic management recommendations per infectious disease. Currently on vancomycin 3. JESSICA scheduled for today, further evaluation of left-sided valves. 4. Encourage use of incentive spirometry 10 times every hour while awake. 5. No class one indication for surgical intervention at this time. 6. Discussed and reinforced the importance of smoking cessation and drug use cessation. 7. GI and DVT prophylaxis 8. ICU management recommendations per Dr. Ugarte. 9. More recommendations to follow based on patient's clinical course. Time with Patient: Greater than 30
[2020-08-01] MEDS ORDERED: BENZOCAINE SPRAY 1 CAN MUCOUS MEM ONE (09:00)
[2020-08-01] MEDS ORDERED: fentaNYL (PF) 50 MCG/ML 2 ML AMP IVP ONE (09:00)
[2020-08-01] MEDS: PANTOPRAZOLE 40 MG/10 ML VIAL IVP SCH (09:14)
--- NOTE | 2020-08-01 09:14 | US ---
EXAMINATION TYPE: US liver DATE OF EXAM: 08/01/2020 COMPARISON: CT 2018 CLINICAL HISTORY: abd pain. EXAM MEASUREMENTS: Liver Length: 20.1 cm Gallbladder Wall: 0.2 cm CBD: 0.4 cm Right Kidney: 12.1 x 4.3 x 5.7 cm Exam done with patient sitting up, patient unable to move or roll for LLD images Pancreas: visualized portions wnl, limited by overlying midline bowel gas Liver: enlarged Gallbladder: borderline hydropic, 0.8cm echogenic shadowing focus within fundus Evidence for sonographic Rubalcava's sign: no CBD: wnl Right Kidney: wnl IMPRESSION: Cholelithiasis, hepatomegaly, some limitations of the exam
[2020-08-01 09:20] LABS: African American GFR (CKD) >90 (>60 ml/min/1.73 sqM); Amylase <30 U/L (30-110); Anion Gap 6 mmol/L; Blood Urea Nitrogen 9 mg/dL (7-17); Calcium 7.5 mg/dL (8.4-10.2); Carbon Dioxide 22 mmol/L (22-30); Chloride 109 mmol/L (98-107); Glucose 104 mg/dL (74-99); Lipase 44 U/L (23-300); Non-African American GFR(CKD) >90 (>60 ml/min/1.73 sqM); Potassium 3.6 mmol/L (3.5-5.1); Sodium 137 mmol/L (137-145)
[2020-08-01 09:42] LABS: C Reactive Protein 194.4 mg/L (<10.0)
[2020-08-01 09:49] LABS: Basophils # (A) 0.2 k/uL (0-0.2); Basophils % (A) 1 %; Eosinophils # (A) 0.1 k/uL (0-0.7); Eosinophils % (A) 0 %; HCT 26.1 % (34.0-46.0); HGB 8.2 gm/dL (11.4-16.0); Hypochromasia Slight; Lymphocytes # (A) 1.5 k/uL (1.0-4.8); Lymphocytes % (A) 10 %; MCH 27.8 pg (25.0-35.0); MCHC 31.3 g/dL (31.0-37.0); Mean Platelet Volume 9.1; Monocytes # (A) 0.8 k/uL (0-1.0); Monocytes % (A) 5 %; Neutrophils # (A) 12.9 k/uL (1.3-7.7); Neutrophils % (A) 80 %; RBC 2.94 m/uL (3.80-5.40); RDW 14.1 % (11.5-15.5)
[2020-08-01 09:53] LABS: Platelet Count 102 k/uL (150-450)
--- NOTE | 2020-08-01 11:08 | ECHOT ---
TRANSESOPHAGEAL ECHOCARDIOGRAM INDICATIONS: Shasha is a 30-year-old lady who was admitted to the hospital with septicemia and septic emboli and was advised transesophageal echo to rule out tricuspid valve endocarditis. PROCEDURE NOTE: After obtaining informed consent, transesophageal echocardiogram is performed in left lateral position using an Omniplane probe. Local and IV sedation were obtained with 50 mcg of fentanyl and 5 mg of Versed. Patient tolerated the procedure well without any obvious immediate complications. Patient received moderate conscious sedation. Total sedation time was 10 minutes. FINDINGS: 1. Tricuspid Valve: The posterior tricuspid leaflet shows an echodense lesion attached to it and the leaflet is flail. There is moderate tricuspid regurgitation noted. 2. Mitral valve is anatomically normal. There is no evidence of mitral stenosis or regurgitation. 3. Aortic valve is a 3-leaflet valve. There is no evidence of aortic stenosis or regurgitation. 4. Left ventricle has normal size and systolic function with an ejection fraction of 60%. 5. Left atrium appears normal. 6. Right atrium shows a prominent eustachian valve. 7. Right ventricle has normal size and systolic function. 8. Aorta appears normal. 9. Interatrial Septum: There is no evidence of nvrb-[id number] shunt by color-flow Doppler. There is evidence of neucy-wj-xhyx shunt noted with agitated saline contrast study. Because of technical malfunctions we could not record the first injection when we did see shunting across the septum, but the second injection did not document this. 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 PLAN: The patient will continue with the antibiotics. Continue to follow blood cultures. If she becomes unstable hemodynamically, we will have to consider tricuspid valve surgery. MMODL / IJN: [id number] /
[2020-08-01] MEDS ORDERED: ACETAMINOPHEN IV (For NPO) 1,000 MG in EMPTY BAG 1 BAG IVPB SCH (12:00)
[2020-08-01] MEDS: ACETAMINOPHEN TAB 325 MG TAB PO PRN (20:22)
[2020-08-01 21:26] LABS: HIV-1 RNA Not detected (Not detected)
--- NOTE | 2020-08-01 23:34 | PN ---
PROGRESS NOTE DATE OF SERVICE: 08/01/2020 REASON FOR FOLLOWUP: MRSA tricuspid valve endocarditis. INTERVAL HISTORY: The patient is currently afebrile. The patient is status post JESSICA with evidence of tricuspid valve endocarditis. The patient is slightly sleepy and lethargic, though denies having any chest pain. Some shortness of breath. No vomiting or any diarrhea has been reported. PHYSICAL EXAMINATION: Blood pressure is 105/81, pulse of 90, temperature 98.9. She is 95% on 2 L nasal cannula. General description is a middle-aged female lying in bed in no distress. RESPIRATORY SYSTEM: Unlabored breathing with decreased breath sounds at the base. No wheeze. HEART: S1, S2. Regular rate and rhythm. ABDOMEN: Soft. No tenderness. EXTREMITIES: No edema of the feet. LABS: Hemoglobin is 8.1, white count 16. BUN of 9, creatinine 0.73. 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 Blood cultures will be repeated to document clearance of the bacteremia. Monitor clinical course closely. MMODL / IJN: [id number] /
[2020-08-02] MEDS: VANCOMYCIN 1,500 MG in SODIUM CHLORIDE 0.9% 250 ML IVPB SCH ×3 (00:30→17:13)
[2020-08-02] MEDS: HYDROmorphone 1 MG/ML 1 ML SYRINGE IVP PRN ×8 (00:31→23:11)
[2020-08-02] MEDS: ACETAMINOPHEN TAB 325 MG TAB PO PRN ×2 (03:29→13:46)
[2020-08-02] MEDS: LORazepam 2 MG/ML INJ IV PRN ×3 (03:29→12:38)
[2020-08-02] MEDS: SODIUM CHLORIDE 0.9% 1,000 ML IV SCH ×3 (03:33→17:10)
[2020-08-02 05:43] LABS: Basophils % (A) 0 %; Eosinophils # (A) 0.2 k/uL (0-0.7); Eosinophils % (A) 1 %; HCT 24.6 % (34.0-46.0); Lymphocytes # (A) 1.5 k/uL (1.0-4.8); Lymphocytes % (A) 12 %; MCHC 32.6 g/dL (31.0-37.0); MCV 88.9 fL (80.0-100.0); Mean Platelet Volume 8.8; Monocytes # (A) 0.6 k/uL (0-1.0); Monocytes % (A) 5 %; Neutrophils # (A) 9.9 k/uL (1.3-7.7); Neutrophils % (A) 79 %; Platelet Count 117 k/uL (150-450); RBC 2.77 m/uL (3.80-5.40); RDW 14.2 % (11.5-15.5); WBC 12.6 k/uL (3.8-10.6)
[2020-08-02 05:52] LABS: INR 1.1 (<1.2); Prothrombin Time 11.9 sec (9.0-12.0)
[2020-08-02 06:21] LABS: ALT 48 U/L (4-34); AST 140 U/L (14-36); African American GFR (CKD) >90 (>60 ml/min/1.73 sqM); Albumin 2.2 g/dL (3.5-5.0); Alkaline Phosphatase 88 U/L (38-126); Amylase <30 U/L (30-110); Anion Gap 7 mmol/L; Blood Urea Nitrogen 10 mg/dL (7-17); Calcium 7.4 mg/dL (8.4-10.2); Carbon Dioxide 21 mmol/L (22-30); Chloride 108 mmol/L (98-107); Glucose 125 mg/dL (74-99); Lipase 56 U/L (23-300); Magnesium 1.8 mg/dL (1.6-2.3); Non-African American GFR(CKD) >90 (>60 ml/min/1.73 sqM); Potassium 3.2 mmol/L (3.5-5.1); Sodium 136 mmol/L (137-145); Total Bilirubin 0.7 mg/dL (0.2-1.3); Total Protein 5.6 g/dL (6.3-8.2)
[2020-08-02 06:45] LABS: C Reactive Protein 198.5 mg/L (<10.0)
[2020-08-02] MEDS: POTASSIUM CHLORIDE 20 MEQ in WATER FOR INJECTION 1 100ML.BAG IVPB SCH ×2 (06:59→10:52)
--- NOTE | 2020-08-02 08:13 | P.PN ---
Subjective Progress Note Date: 08/02/20 Right-sided chest pain, suspected septic emboli, tricuspid vegetation This is a pleasant 30-year-old female patient with a known history of ADHD, bipolar disorder, severe anxiety, chronic tobacco dependence. She follows at [facility] as well as with a Dr. Sidhu for Suboxone. She also has a history of IV drug abuse that she had done for approximately 4 years then states she was clean for 4 years. Unfortunately in June 2020 she started using IV heroin again. Approximate 4 days ago she started having migraines which turned into nausea, vomiting and diarrhea. She had chills. Unsure if she had a fever. Last evening she started developed some right-sided chest pain but tried to sleep however woke up earlier this morning and was more severe and she presented to the emergency room just after midnight. CT angiogram ruled out any large or central pulmonary emboli. Suboptimal contrast. There is noted scattered irregular peripheral patchy groundglass opacities throughout the lungs. There is also scattered lesions with some cavitary lesion more so on the right upper lobe raising the possibility of septic emboli with central necrosis. White count 11.5. Hemoglobin 11.2. Platelet count 50,000. Lymphocytes 0.6. Sodium 132. Potassium 3.8. Creatinine 1.35. Urine with moderate blood and moderate leukocytosis. Urine hCG negative. Coronavirus by PCR negative. Initial lactic acid 2.7. Currently 0.9. She did receive 2 L of fluid resusci tation. She was given vancomycin and Zosyn. She's been hypotensive and is currently on norepinephrine at 0.05 mcg/kg/m, approximately 3.5 mcg/m. 0.9 normal saline at 130 ML's per hour. She is seen in consultation in the emergency room. She is currently awake and alert. She is still having right- sided chest discomfort. No worsening shortness of breath, cough or congestion. Maintaining O2 saturation in the 90s on room air. Echocardiogram is pending was concerns of vegetation. CT services have been consulted. The patient is seen today 07/31/2020 in follow-up in the intensive care unit. She is currently resting comfortably in bed. Awake and alert in no acute distress. She is maintaining O2 saturation in the 90s on room air. The past 24 hours did have a T-max of 102.5. Currently 99.0. She has 0.9 normal saline running at 130 ML's per hour. She has been weaned off the norepinephrine. Blood pressure currently stable. She denies any worsening shortness of breath, cough or congestion. Still with some right-sided chest discomfort. Echocardiogram results are pending. Plan is for JESSICA in a.m. White count 14.0. Hemoglobin 9.6. Platelet count 65,000. Sodium 134. Potassium 3.3. Bicarb 23. Creatinine 0.71. Pro-calcitonin 4.06. Hepatitis B and C antibodies are reactive. HIV results are pending. Blood cultures were positive for gram- positive cocci in clusters. She remains on vancomycin and cefepime. On 08/01/2020 the patient is being seen in follow-up in the intensive care unit. The patient is currently being treated for infected endocarditis with secondary pulmonary infiltrates/pneumonia/septic emboli. The patient's with cultures positive for staph aureus and the patient is currently on vancomycin. Also, a 2-D echocardiogram showing moderate pulmonary hypertension, right-sided pressures of 59 mmHg an underlying vegetation cannot be predicted ruled out involving the tricuspid valve. LV is within normal. A JESSICA is to follow today. The patient remains normal saline 130 mL an hour. The patient remains on IV vancomycin. Appropriate calcitonin level was at 4.0. She is afebrile. She is slightly tachycardic today. No nausea. No vomiting. No emesis. She does have some vague abdominal pain mainly in the right upper quadrant area. Her liver function tested and within normal limits. The liver function tests from this morning was within normal limits. The patient is supposed to undergo a JESSICA today. Blood cultures positive for MRSA. On 08/02/2020, the patient is being seen in follow-up in the intensive care unit. The JESSICA was done yesterday and it confirmed the presence of endocarditis involving the tricuspid valve. The posterior tricuspid leaflet showed a lesion attached to 8 and the leaflet was flail and there was moderate degree of tricuspid regurgitation. Mitral valve was normal. LV ejection fraction was 60%. There is no evidence of any [id number]-dg-yfcvt shunt. Repeat cultures were done and there are still negative for now. The last blood cultures from 07/30/2020 and she is hemodynamically stable. An ultrasound the liver was done yesterday that showed cholelithiasis and hepatomegaly otherwise, no other abnormalities was noted. No evidence of any common bile duct dilatation. No nausea. No vomiting. No emesis. tachycardic in normal sinus rhythm. Rajan cath is in place. She has an adequate urine output. IV fluids is running in the form of normal saline at the rate of 1 30 mL an hour. Objective - Vital Signs Vital signs: Vital Signs Temp 100.0 F H 08/02/20 04:00 Pulse 98 08/02/20 07:00 Resp 30 H 08/02/20 07:00 BP 124/75 08/02/20 07:00 Pulse Ox 94 L 08/02/20 07:00 Intake & Output 08/01/20 08/02/20 08/02/20 18:59 06:59 18:59 Intake Total 2060 2340 Output Total 610 640 Balance 1450 1700 Weight 77.2 kg Intake: IV 2060 1940 Sodium Chloride 0.9% 1, 1560 1690 000 ml @ 130 mls/hr IV . Q7H42M CAROL ANN Rx#:[id number] Vancomycin 1,500 mg In 500 250 Sodium Chloride 0.9% 250 ml @ 125 mls/hr IVPB Q8H CAROL ANN Rx#:[id number] Oral 400 Output: Urine 610 640 Other: Voiding Method Indwelling Catheter Indwelling Catheter - Exam GENERAL EXAM: Alert, pleasant 30-year-old female patient, on room air, the patient is seeking a bit uncomfortable and tachypneic on today's evaluation. S he also has tachycardia. Pulse ox is around 92% on room air oxygen. HEAD: Normocephalic. EYES: Normal reaction of pupils, equal size. NOSE: Clear with pink turbinates. THROAT: No erythema or exudates. NECK: No masses, no JVD. CHEST: No chest wall deformity. LUNGS: Equal air entry with few scattered rhonchi more so on the right lung CVS: S1 and S2 normal with an audible murmur, regular rhythm. ABDOMEN: No hepatosplenomegaly, normal bowel sounds, no guarding or rigidity. SPINE: No scoliosis or deformity SKIN: No rashes CENTRAL NERVOUS SYSTEM: No focal deficits, tone is normal in all 4 extremities. EXTREMITIES: There is no peripheral edema. No clubbing, no cyanosis. Peripheral pulses are intact. - Labs CBC & Chem 7: 08/02/20 05:20 08/02/20 05:20 Labs: Abnormal Lab Results - Last 24 Hours (Table) 08/01/20 08/01/20 08/01/20 Range/Units 08:53 08:53 08:53 WBC 16.0 H (3.8-10.6) k/uL RBC 2.94 L (3.80-5.40) m/uL Hgb 8.2 L (11.4-16.0) gm/dL Hct 26.1 L (34.0-46.0) % Plt Count 102 L D (150-450) k/uL Neutrophils # 12.9 H (1.3-7.7) k/uL Sodium (137-145) mmol/L Potassium (3.5-5.1) mmol/L Chloride 109 H (98-107) mmol/L Carbon Dioxide (22-30) mmol/L Glucose 104 H (74-99) mg/dL Calcium 7.5 L (8.4-10.2) mg/dL AST (14-36) U/L ALT (4-34) U/L C-Reactive Protein 194.4 H (<10.0) mg/L Total Protein (6.3-8.2) g/dL Albumin (3.5-5.0) g/dL Amylase <30 L (30-110) U/L Procalcitonin 1.60 H (0.02-0.09) ng/mL 08/02/20 08/02/20 Range/Units 05:20 05:20 WBC 12.6 H (3.8-10.6) k/uL RBC 2.77 L (3.80-5.40) m/uL Hgb 8.0 L (11.4-16.0) gm/dL Hct 24.6 L (34.0-46.0) % Plt Count 117 L (150-450) k/uL Neutrophils # 9.9 H (1.3-7.7) k/uL Sodium 136 L (137-145) mmol/L Potassium 3.2 L (3.5-5.1) mmol/L Chloride 108 H (98-107) mmol/L Carbon Dioxide 21 L (22-30) mmol/L Glucose 125 H (74-99) mg/dL Calcium 7.4 L (8.4-10.2) mg/dL AST 140 H (14-36) U/L ALT 48 H (4-34) U/L C-Reactive Protein 198.5 H (<10.0) mg/L Total Protein 5.6 L (6.3-8.2) g/dL Albumin 2.2 L (3.5-5.0) g/dL Amylase <30 L (30-110) U/L Procalcitonin (0.02-0.09) ng/mL Microbiology - Last 24 Hours (Table) 07/30/20 11:34 Blood Culture Gram Stain - Final Blood Blood Culture - Final Methicillin resist S. aureus 07/30/20 12:17 Blood Culture Gram Stain - Final Blood Blood Culture - Final Methicillin resist S. aureus 08/01/20 08:53 Blood Culture - Final Blood Assessment and Plan Plan: 1 Sepsis septic shock secondary to infective endocarditis and staphylococcal bacteremia/MRSA. The blood cultures positive for staph aureus/MRSA and the patient is currently on vancomycin. The patient has evidence of vegetation involving the tricuspid valve, including the posterior leaflet 2 Right midlung infiltrate in addition to lesions, cavitary lesion, suspect septic emboli with a component of pneumonia 3 Sepsis with hypotension requiring norepinephrine for bacteremia secondary to IV drug use 4 Leukocytosis secondary to above, improving at 12.6 5 Thrombocytopenia secondary to above, most likely consumptive secondary septic shock, plt is 117K improved compared to yesterday 6 Acute renal failure secondary to above, improved 7 IV drug use 8 History of ADHD 9 History of anxiety 10 Bipolar disorder 11 Hepatitis C 12 Hepatitis B reactive antibodies Plan: JESSICA was noted Continue vancomycin Currently off pressors Check amylase and lipase was done and the levels were negative, and the pro- calcitonin levels are improving Check ultrasound the liver and the gallbladder as the patient is having some right upper quadrant pain Continue IV fluids at the rate of 130 mL an hour of normal saline blood cultures as a follow-up pending The patient has a right subclavian triple-lumen catheter Repeat chest x-ray in a.m. Continue to monitor closely here in the ICU We will continue to follow and make further recommendations based on her clinical status
[2020-08-02] MEDS: PANTOPRAZOLE 40 MG/10 ML VIAL IVP SCH (08:34)
--- NOTE | 2020-08-02 09:21 | P.PN ---
Subjective Progress Note Date: 08/02/20 Principal diagnosis: Infective endocarditis endocarditis with staphylococcal bacteremia/MRSA, septic emboli to the lungs, sepsis with hypotension, right midlung infiltrate, cavitary lesion and suspected emboli versus pneumonia, leukocytosis, hepatitis B reactive antibodies and hepatitis C. Previous medical history of IV drug abuse with recent relapse, heroin, bipolar disorder, anxiety, attention deficit hyperactivity disorder and chronic ongoing tobacco abuse. The patient is currently sitting up in a recliner in the intensive care unit in no acute distress. She appears very sleepy and is having a hard time staying awake for conversation. She states her only pain is in her back when sneezing, no complaints of chest pain or abdominal pain at this time, states her shortness of breath is better than when she was admitted. She remains in sinus rhythm and hemodynamically stable. Oxygen saturation remains in the mid 90s on room air. T-max 102.3F this morning, WBC trending down, pro-calcitonin trending down, remains on IV vancomycin per infectious disease. JESSICA completed yesterday demonstrating vegetation on the tricuspid valve with moderate tricuspid valve regurgitation, preserved LV function with EF 60%. Objective - Vital Signs Vital signs: Vital Signs Temp 100.0 F H 08/02/20 04:00 Pulse 98 08/02/20 07:00 Resp 30 H 08/02/20 07:00 BP 124/75 08/02/20 07:00 Pulse Ox 94 L 08/02/20 07:00 Intake & Output 08/01/20 08/02/20 08/02/20 18:59 06:59 18:59 Intake Total 2060 2340 Output Total 610 640 Balance 1450 1700 Weight 77.2 kg Intake: IV 2059 1940 Sodium Chloride 0.9% 1, 1560 1690 000 ml @ 130 mls/hr IV . Q7H42M CAROL ANN Rx#:[id number] Vancomycin 1,500 mg In 500 250 Sodium Chloride 0.9% 250 ml @ 125 mls/hr IVPB Q8H CAROL ANN Rx#:[id number] Oral 400 Output: Urine 610 640 Other: Voiding Method Indwelling Catheter Indwelling Catheter - Constitutional General appearance: Present: cooperative, no acute distress - Respiratory Details: Lungs sounds diminished bilaterally. Respirations even, nonlabored, taccypneic at times, currently on room air with oxygen saturation 95%. Too sleepy to attempt incentive spirometry. - Cardiovascular Details: S1, S2 present. Regular rate and rhythm, sinus rhythm to sinus tach on telemetry with heart rate in the high 90s to low 100s. Palpable peripheral pulses bilaterally. - Gastrointestinal Gastrointestinal Comment(s): Abdomen soft, nontender, nondistended. Active bowel sounds present 4 quadrants. - Genitourinary Genitourinary Comment(s): Rajan catheter present draining clear, yellow urine. Output 1220 mL in the last 24 hours - Integumentary Integumentary Comment(s): Skin is warm and dry. - Neurologic Neurologic: Present: CNII-XII intact - Musculoskeletal Musculoskeletal: Present: strength equal bilaterally - Psychiatric Psychiatric Comment(s): Oriented 3, patient appears very sleepy, difficulty staying awake for conversation, she is getting IV Dilaudid and Ativan around the clock - Allied health notes Allied health notes reviewed: nursing - Labs CBC & Chem 7: 08/02/20 05:20 08/02/20 05:20 Labs: Abnormal Lab Results - Last 24 Hours (Table) 08/01/20 08/01/20 08/01/20 Range/Units 08:53 08:53 08:53 WBC 16.0 H (3.8-10.6) k/uL RBC 2.94 L (3.80-5.40) m/uL Hgb 8.2 L (11.4-16.0) gm/dL Hct 26.1 L (34.0-46.0) % Plt Count 102 L D (150-450) k/uL Neutrophils # 12.9 H (1.3-7.7) k/uL Sodium (137-145) mmol/L Potassium (3.5-5.1) mmol/L Chloride 109 H (98-107) mmol/L Carbon Dioxide (22-30) mmol/L Glucose 104 H (74-99) mg/dL Calcium 7.5 L (8.4-10.2) mg/dL AST (14-36) U/L ALT (4-34) U/L C-Reactive Protein 194.4 H (<10.0) mg/L Total Protein (6.3-8.2) g/dL Albumin (3.5-5.0) g/dL Amylase <30 L (30-110) U/L Procalcitonin 1.60 H (0.02-0.09) ng/mL 08/02/20 08/02/20 Range/Units 05:20 05:20 WBC 12.6 H (3.8-10.6) k/uL RBC 2.77 L (3.80-5.40) m/uL Hgb 8.0 L (11.4-16.0) gm/dL Hct 24.6 L (34.0-46.0) % Plt Count 117 L (150-450) k/uL Neutrophils # 9.9 H (1.3-7.7) k/uL Sodium 136 L (137-145) mmol/L Potassium 3.2 L (3.5-5.1) mmol/L Chloride 108 H (98-107) mmol/L Carbon Dioxide 21 L (22-30) mmol/L Glucose 125 H (74-99) mg/dL Calcium 7.4 L (8.4-10.2) mg/dL AST 140 H (14-36) U/L ALT 48 H (4-34) U/L C-Reactive Protein 198.5 H (<10.0) mg/L Total Protein 5.6 L (6.3-8.2) g/dL Albumin 2.2 L (3.5-5.0) g/dL Amylase <30 L (30-110) U/L Procalcitonin (0.02-0.09) ng/mL Microbiology - Last 24 Hours (Table) 07/30/20 11:34 Blood Culture Gram Stain - Final Blood Blood Culture - Final Methicillin resist S. aureus 07/30/20 12:17 Blood Culture Gram Stain - Final Blood Blood Culture - Final Methicillin resist S. aureus 08/01/20 08:53 Blood Culture - Final Blood - Imaging and Cardiology JESSICA results reviewed with Dr. Lock Assessment and Plan Assessment: 1. Infective endocarditis with septic emboli to the lungs, blood cultures 2/ positive for MRSA, 08/01 blood cultures negative 2. Right midlung infiltrate, cavitary lesion, suspected septic emboli versus pneumonia 3. Sepsis with hypotension, resolved 4. Leukocytosis secondary to above 5. Fever, secondary to above 6. Thrombocytopenia, possibly secondary to septic shock 7. Acute renal failure secondary to above 8. History of IV drug abuse, heroin with recent relapse 9. Bipolar disorder 10. Anxiety 11. Attention deficit hyperactivity disorder 12. Chronic ongoing tobacco abuse 13. Hepatitis C reactive antibodies 14. Hepatitis B reactive antibodies Plan: 1. Continue to follow blood cultures, most recent blood cultures negative 2. Antibiotic management recommendations per infectious disease. Currently on vancomycin 3. Encourage use of incentive spirometry 10 times every hour while awake. 4. Encouraged smoking cessation, IV drug use cessation 5. GI and DVT prophylaxis 6. ICU management recommendations per Dr. Ugarte. 7. No class one indication for surgical intervention 8. Will sign off the case. Please call us with any further questions Time with Patient: Greater than 30
--- NOTE | 2020-08-02 09:52 | PN ---
PROGRESS NOTE A 30-year-old lady that is admitted to hospital with pneumonia secondary to tricuspid valve endocarditis and bilateral septic emboli. She is doing better today. Heart rate has improved. Blood pressure is more stable. I performed a transesophageal echo yesterday that showed tricuspid valve vegetation. PHYSICAL EXAMINATION: On exam, she is comfortable at rest. Heart rate is 98 beats per minute. Blood pressure is 124/75, respiratory rate 18. Chest exam reveals diminished air entry at the bases. Heart exam reveals first and second heart sounds. No gallop. No murmur. Abdomen is soft. Examination of extremities did not reveal any edema. Peripheral pulses are felt. LABS: Labs show that the hemoglobin is 8, platelet count is 117. Potassium is low. Creatinine is 0.7. ASSESSMENT: Tricuspid valve endocarditis with septic emboli. PLAN: Continue the IV antibiotics. The patient is hemodynamically stable. We will continue to monitor her closely. MMODL / IJN: [id number] /
--- NOTE | 2020-08-02 13:00 | PN ---
PROGRESS NOTE DATE OF SERVICE: 08/02/2020 REASON FOR FOLLOWUP: MRSA tricuspid valve endocarditis. INTERVAL HISTORY: The patient is currently afebrile. The patient is breathing comfortably. Denies having any chest pain. Occasional cough. No vomiting or diarrhea has been reported. PHYSICAL EXAMINATION: Blood pressure 127/82 with a pulse of 92, temperature 98.2. She is 95% on room air. General description is a young female up in the chair in no distress. RESPIRATORY SYSTEM: Unlabored breathing, clear to auscultation anteriorly. HEART: S1, S2. Regular rate and rhythm. ABDOMEN: Soft, no tenderness. LABS: Hemoglobin is 8, white count 12.6, BUN of 10, creatinine 0.70. DIAGNOSTIC IMPRESSION AND PLAN: Patient with MRSA bacteremia secondary to tricuspid valve endocarditis. The patient is covered with vancomycin, trough is therapeutic. Blood cultures repeated daily to document clearance of bacteremia. She will need weeks of IV antibiotic therapy for with the patient will need placement in view of the active drug use. MMODL / IJN: [id number] /
--- NOTE | 2020-08-02 16:14 | P.PN ---
Subjective Progress Note Date: 08/01/20 Principal diagnosis: High suspicion for tricuspid valve endocarditis with septic emboli to the lungs Sepsis Right midlung infiltrate- cavitary lesion/suspected emboli 30-year-old female patient admitted on high suspicion for tricuspid valve endocarditis with septic emboli to the lungs, sepsis with hypotension, right midlung infiltrate, cavitary lesion and suspected emboli versus pneumonia, leukocytosis. Past medical history significant for IV drug abuse, heroin, bipolar disorder, anxiety, attention deficit hyperactivity disorder and chronic ongoing tobacco abuse. 07/31/2020 Patient is seen and evaluated at bedside in ICU; currently resting comfortably in bed; does tend to hold her breath and complaining of chest pain while talking Vital signs are stable with a temperature of 99, pulse 117, respiration 24 and blood pressure of 119/60; patient is currently off levophed Remains on IV cefepime and vancomycin; IDs on board; patient's blood cultures have been positive for gram-positive cocci in clusters 2 out of 2 sets; 2-D echo is done and results are pending Cardiothoracic surgery is on board and recommend JESSICA for further evaluation of l eft-sided Paige's; patient does not have any class I indication for surgical intervention at this time We will start patient on IV Ativan to be used when necessary for anxiety May be transferred out of ICU later today for remains stable 08/01/2020 Patient is currently in the MICU. Currently being treated for infected endocarditis secondary to pulmonary infiltrate/pneumonia/septic emboli. Current ly on vancomycin due to cultures positive for staph aureus. 2-D echocardiogram showed vegetation cannot be ruled out involving tricuspid valve. Scheduled for JESSICA today. Patient is lethargic and drowsy otherwise. No complaints of chest pain or worsening shortness of breath. No fever. Laboratory data showed diabetes 0.0, hemoglobin 8.2, weight is 102 Sodium 137 potassium 3.6 chloride 109, BUN [address] surgery, pulmonary and cardiology is on board. current medications reviewed. Objective - Vital Signs Vital signs: Vital Signs Temp 98.4 F 08/01/20 04:00 Pulse 116 H 08/01/20 13:00 Resp 39 H 08/01/20 13:00 BP 121/73 08/01/20 13:00 Pulse Ox 93 L 08/01/20 13:00 Intake & Output 07/31/20 08/01/2008/01/21 18:59 06:59 18:59 Intake Total 2310 1860 1160 Output Total 880 1005 345 Balance 1430 855 815 Weight 76.5 kg Intake: IV 1560 1560 1160 Sodium Chloride 0.9% 1, 1560 1560 910 000 ml @ 130 mls/hr IV . Q7H42M [facility] Rx#:[id number] Vancomycin 1,500 mg In 250 Sodium Chloride 0.9% 250 ml @ 125 mls/hr IVPB Q8H [facility] Rx#:[id number] Intake, IV Titration 550 Amount Cefepime 2 gm In Sodium 200 Chloride 0.9% 100 ml @ 200 mls/hr IVPB ONCE ONE Rx#:[id number] Potassium Chloride 20 meq 100 In Water For Injection 1 100ml.bag @ 50 mls/hr IVPB Q2H [facility] Rx#: [id number] Vancomycin 1,500 mg In 250 Sodium Chloride 0.9% 250 ml @ 125 mls/hr IVPB Q16H [facility] Rx#:[id number] Oral 200 300 Output: Urine 880 1005 345 Other: Voiding Method Indwelling Catheter Indwelling Catheter - Exam - Exam GENERAL EXAM: Alert, pleasant 30-year-old female patient, on room air, fairly comfortable in no apparent distress. HEAD: Normocephalic. EYES: Normal reaction of pupils, equal size. NOSE: Clear with pink turbinates. THROAT: No erythema or exudates. NECK: No masses, no JVD. CHEST: No chest wall deformity. LUNGS: Equal air entry with few scattered rhonchi more so on the right lung CVS: S1 and S2 normal with an audible murmur, regular rhythm. ABDOMEN: No hepatosplenomegaly, normal bowel sounds, no guarding or rigidity. SPINE: No scoliosis or deformity SKIN: No rashes CENTRAL NERVOUS SYSTEM: No focal deficits, tone is normal in all 4 extremities. EXTREMITIES: There is no peripheral edema. No clubbing, no cyanosis. Peripheral pulses are intact. - Labs CBC & Chem 7: 08/02/20 05:20 08/02/20 05:20 Labs: Abnormal Lab Results - Last 24 Hours (Table) 08/01/20 08/01/20 Range/Units 08:53 08:53 WBC 16.0 H (3.8-10.6) k/uL RBC 2.94 L (3.80-5.40) m/uL Hgb 8.2 L (11.4-16.0) gm/dL Hct 26.1 L (34.0-46.0) % Plt Count 102 L D (150-450) k/uL Neutrophils # 12.9 H (1.3-7.7) k/uL Chloride 109 H (98-107) mmol/L Glucose 104 H (74-99) mg/dL Calcium 7.5 L (8.4-10.2) mg/dL C-Reactive Protein 194.4 H (<10.0) mg/L Amylase <30 L (30-110) U/L Microbiology - Last 24 Hours (Table) 07/30/20 11:34 Blood Culture Gram Stain - Preliminary Blood Blood Culture - Preliminary Presumptive MRSA 07/30/20 12:17 Blood Culture Gram Stain - Preliminary Blood Blood Culture - Preliminary Presumptive MRSA 07/30/20 07:49 Urine Culture - Final Urine,Voided Assessment and Plan Assessment: 1. Right midlung infiltrate/cavitary lesion/suspected septic emboli versus pneumonia - Patient is started on IV Zosyn and vancomycin; Zosyn has been discontinued with blood cultures positive for staph aureus. echocardiogram showed possible tricuspid valve visitation; cardiothoracic surgery and cardiology is following. - HIV screen and hepatitis is ordered and pending 2. Septic shock secondary to infected endocarditis and staph aureus bacteremia; patient didn't require norepinephrine; patient remains on continuous IV fluid re suscitation; titrate down pressors as tolerated 3. UTI; IV antibiotics as indicated above; we will adjust antibiotic treatment 4. Acute renal injury; continue with IV fluid resuscitation as indicated above; we will monitor strict SHREYAS's; daily weights, renal function and electrolytes; avoid nephrotoxic agents 5. IV drug abuse; continue with counseling 6. History of ADHD; continue with outpatient psych follow-up 7. Bipolar disorder; outpatient psych follow-up DVT prophylaxis; SCDs/subcu heparin CODE STATUS; full code Time with Patient: Greater than 30
[2020-08-03] MEDS: VANCOMYCIN 1,500 MG in SODIUM CHLORIDE 0.9% 250 ML IVPB SCH ×2 (01:05→15:10)
[2020-08-03] MEDS: LORazepam 2 MG/ML INJ IV PRN ×4 (01:05→22:52)
[2020-08-03] MEDS: HYDROmorphone 1 MG/ML 1 ML SYRINGE IVP PRN ×8 (02:41→23:38)
[2020-08-03] MEDS: ACETAMINOPHEN TAB 325 MG TAB PO PRN (02:51)
[2020-08-03] MEDS: SODIUM CHLORIDE 0.9% 1,000 ML IV SCH ×3 (03:15→15:12)
[2020-08-03 03:48] LABS: Basophils # (A) 0.1 k/uL (0-0.2); Basophils % (A) 0 %; Eosinophils # (A) 0.2 k/uL (0-0.7); Eosinophils % (A) 1 %; HCT 24.5 % (34.0-46.0); HGB 7.7 gm/dL (11.4-16.0); Lymphocytes # (A) 1.8 k/uL (1.0-4.8); Lymphocytes % (A) 11 %; MCHC 31.5 g/dL (31.0-37.0); MCV 89.1 fL (80.0-100.0); Mean Platelet Volume 8.5; Monocytes # (A) 0.8 k/uL (0-1.0); Monocytes % (A) 5 %; Neutrophils # (A) 12.7 k/uL (1.3-7.7); Neutrophils % (A) 80 %; RBC 2.75 m/uL (3.80-5.40); RDW 14.4 % (11.5-15.5); WBC 15.8 k/uL (3.8-10.6)
[2020-08-03 03:49] LABS: Platelet Count 193 k/uL (150-450)
[2020-08-03 04:05] LABS: ALT 34 U/L (4-34); AST 49 U/L (14-36); African American GFR (CKD) >90 (>60 ml/min/1.73 sqM); Albumin 2.2 g/dL (3.5-5.0); Alkaline Phosphatase 69 U/L (38-126); Anion Gap 6 mmol/L; Blood Urea Nitrogen 8 mg/dL (7-17); Calcium 7.5 mg/dL (8.4-10.2); Carbon Dioxide 19 mmol/L (22-30); Chloride 112 mmol/L (98-107); Glucose 107 mg/dL (74-99); Non-African American GFR(CKD) >90 (>60 ml/min/1.73 sqM); Potassium 3.6 mmol/L (3.5-5.1); Sodium 137 mmol/L (137-145); Total Bilirubin 0.7 mg/dL (0.2-1.3); Total Protein 5.9 g/dL (6.3-8.2)
[2020-08-03 04:17] LABS: C Reactive Protein 147.5 mg/L (<10.0)
[2020-08-03] MEDS ORDERED: POTASSIUM CHLORIDE 20 MEQ in WATER FOR INJECTION 1 100ML.BAG IVPB ONE (04:33)
[2020-08-03] MEDS: PANTOPRAZOLE 40 MG/10 ML VIAL IVP SCH (07:54)
[2020-08-03] MEDS ORDERED: VANCOMYCIN TROUGH DUE 1 EACH MISC MISCELLANE ONE (08:00)
--- NOTE | 2020-08-03 08:31 | XR ---
EXAMINATION TYPE: XR chest 1V portable DATE OF EXAM: 08/03/2020 COMPARISON: 07/31/2020 HISTORY: Shortness of breath TECHNIQUE: Single frontal view of the chest is obtained. FINDINGS: There is bilateral sizable consolidation and pleural effusion greater on the right. Heart is enlarged. Central line stable. Localized area of infiltrate in the right upper lobe is progressed. No sizable pneumothorax. Patchy additional areas of infiltrate and the left upper lobe. IMPRESSION: 1. Diffuse pleural-parenchymal changes with mild progression. Finding could be on the basis of multif ocal pneumonia rather than CHF correlate clinically.
--- NOTE | 2020-08-03 08:50 | P.PN ---
Subjective Progress Note Date: 08/03/20 Right-sided chest pain, suspected septic emboli, tricuspid vegetation This is a pleasant 30-year-old female patient with a known history of ADHD, bipolar disorder, severe anxiety, chronic tobacco dependence. She follows at [facility] as well as with a Dr. Sidhu for Suboxone. She also has a history of IV drug abuse that she had done for approximately 4 years then states she was clean for 4 years. Unfortunately in June 2020 she started using IV heroin again. Approximate 4 days ago she started having migraines which turned into nausea, vomiting and diarrhea. She had chills. Unsure if she had a fever. Last evening she started developed some right-sided chest pain but tried to sleep however woke up earlier this morning and was more severe and she presented to the emergency room just after midnight. CT angiogram ruled out any large or central pulmonary emboli. Suboptimal contrast. There is noted scattered irregular peripheral patchy groundglass opacities throughout the l ungs. There is also scattered lesions with some cavitary lesion more so on the right upper lobe raising the possibility of septic emboli with central necrosis. White count 11.5. Hemoglobin 11.2. Platelet count 50,000. Lymphocytes 0.6. Sodium 132. Potassium 3.8. Creatinine 1.35. Urine with moderate blood and moderate leukocytosis. Urine hCG negative. Coronavirus by PCR negative. Initial lactic acid 2.7. Currently 0.9. She did receive 2 L of fluid resuscitation. She was given vancomycin and Zosyn. She's been hypotensive and is currently on norepinephrine at 0.05 mcg/kg/m, approximately 3.5 mcg/m. 0.9 normal saline at 130 ML's per hour. She is seen in consultation in the emerg ency room. She is currently awake and alert. She is still having right-sided chest discomfort. No worsening shortness of breath, cough or congestion. Maintaining O2 saturation in the 90s on room air. Echocardiogram is pending was concerns of vegetation. CT services have been consulted. The patient is seen today 07/31/2020 in follow-up in the intensive care unit. She is currently resting comfortably in bed. Awake and alert in no acute distress. She is maintaining O2 saturation in the 90s on room air. The past 24 hours did have a T-max of 102.5. Currently 99.0. She has 0.9 normal saline running at 130 ML's per hour. She has been weaned off the norepinephrine. Blood pressure currently stable. She denies any worsening shortness of breath, cough or congestion. Still with some right-sided chest discomfort. Echocardiogram results are pending. Plan is for JESSICA in a.m. White count 14.0. Hemoglobin 9.6. Platelet count 65,000. Sodium 134. Potassium 3.3. Bicarb 23. Creatinine 0.71. Pro-calcitonin 4.06. Hepatitis B and C antibodies are reactive. HIV results are pending. Blood cultures were positive for gram- positive cocci in clusters. She remains on vancomycin and cefepime. On 08/01/2020 the patient is being seen in follow-up in the intensive care unit. The patient is currently being treated for infected endocarditis with secondary pulmonary infiltrates/pneumonia/septic emboli. The patient's with cultures positive for staph aureus and the patient is currently on vancomycin. Also, a 2-D echocardiogram showing moderate pulmonary hypertension, right-sided pressures of 59 mmHg an underlying vegetation cannot be predicted ruled out involving the tricuspid valve. LV is within normal. A JESSICA is to follow today. The patient remains normal saline 130 mL an hour. The patient remains on IV vancomycin. Appropriate calcitonin level was at 4.0. She is afebrile. She is slightly tachycardic today. No nausea. No vomiting. No emesis. She does have some vague abdominal pain mainly in the right upper quadrant area. Her liver function tested and within normal limits. The liver function tests from this morning was within normal limits. The patient is supposed to undergo a JESSICA today. Blood cultures positive for MRSA. On 08/02/2020, the patient is being seen in follow-up in the intensive care unit. The JESSICA was done yesterday and it confirmed the presence of endocarditis involving the tricuspid valve. The posterior tricuspid leaflet showed a lesion attached to 8 and the leaflet was flail and there was moderate degree of tricuspid regurgitation. Mitral valve was normal. LV ejection fraction was 60%. There is no evidence of any [id number] shunt. Repeat cultures were done and there are still negative for now. The last blood cultures from 07/30/2020 and she is hemodynamically stable. An ultrasound the liver was done yesterday that showed cholelithiasis and hepatomegaly otherwise, no other abnormalities was noted. No evidence of any common bile duct dilatation. No nausea. No vomiting. No emesis. Dr. wrightardijaden in normal sinus rhythm. Rajan cath is in place. She has an adequate urine output. IV fluids is running in the form of normal saline at the rate of 1 30 mL an hour. On 08/03/2020 patient seen in follow-up in the intensive care unit, and she is currently up in the recliner, is tachypneic, shallow breaths, she is complaining of pain with deep inspiration and her right chest, today's chest x-ray is reviewed showing bilateral infiltrates and worsening of right pleural effusion loculated, and is likely parapneumonic in nature, patient did have a fever spike at 3:00 in the morning with a temp of 101.4F, on room air, and with a pulse ox of 3%, she is on 0.9 normal saline at a rate of 1:30 ML per hour, lung sounds reveal diminished breath sounds at bilateral bases with dullness to percussion. She has follow-up blood cultures continue to be positive, last blood culture from 08/01/2020 is positive for presumptive MRSA patient is on vancomycin for antibiotic coverage. ID Service is following. In sinus mechanism, slightly tachycardic with a rate of 108 BPM, hemodynamically she is stable, not requiring any vasopressor support, today's labs have been reviewed, her platelet count 293,000 on today's labs, white blood cell count has slightly tented up since yesterday, up to 15.8, hemoglobin is 7.7 with no obvious signs of bleeding, sodium is 137, potassium 3.6, chloride is 112 CO2 is 19, BUN is 8, creatinine 0.81, there is slightly down to 147.5 from 198.5 on yesterday's labs. Pro- calcitonin level is down to 1.11 on yesterday's labs, which is improving. Nausea vomiting or diarrhea, patient is tolerating oral intake, she appears to be mildly generally swollen including her upper and lower extremities. Is in place and patient is producing urine and the order of 30-50 ML per hour. Objective - Vital Signs Vital signs: Vital Signs Temp 98.7 F 08/03/20 04:00 Pulse 106 H 08/03/20 07:00 Resp 24 08/03/20 07:00 BP 131/72 08/03/20 07:00 Pulse Ox 93 L 08/03/20 07:35 Intake & Output 08/02/20 08/03/20 08/03/20 18:59 06:59 18:59 Intake Total 2824 1782 130 Output Total 585 575 30 Balance 2239 1207 100 Weight 77.8 kg Intake: IV 2080 1560 130 Potassium Chloride 20 meq 150 In Water For Injection 1 100ml.bag @ 50 mls/hr IVPB Q2H [facility] Rx#: [id number] Sodium Chloride 0.9% 1, 1430 1560 130 000 ml @ 130 mls/hr IV . Q7H42M [facility] Rx#:[id number] Vancomycin 1,500 mg In 500 Sodium Chloride 0.9% 250 ml @ 125 mls/hr IVPB Q8H [facility] Rx#:[id number] Oral 744 222 Output: Urine 585 575 30 Other: Voiding Method Indwelling Catheter Indwelling Catheter - Exam GENERAL EXAM: Alert, very pleasant, 30-year-old room air, with a pulse ox of 93%, sitting up in the recliner slightly tachypneic but appears to be in no acute distress. Comfortable in no apparent distress. HEAD: Normocephalic/atraumatic. EYES: Normal reaction of pupils, equal size. Conjunctiva pink, sclera white. NOSE: Clear with pink turbinates. THROAT: No erythema or exudates. NECK: No masses, no JVD, no thyroid enlargement, no adenopathy. CHEST: No chest wall deformity. Symmetrical expansion. LUNGS: Equal air entry with positive bases, and dullness to percussion at the bases CVS: Regular rate and rhythm, normal S1 and S2, no gallops, no murmurs, no rubs ABDOMEN: Soft, nontender. No hepatosplenomegaly, normal bowel sounds, no guarding or rigidity. EXTREMITIES: No clubbing, mild generalized edema, no cyanosis, 2+ pulses and upper and lower extremities. MUSCULOSKELETAL: Muscle strength and tone normal. SPINE: No scoliosis or deformity SKIN: No rashes CENTRAL NERVOUS SYSTEM: Alert and oriented -3. No focal deficits, tone is normal in all 4 extremities. PSYCHIATRIC: Alert and oriented -3. Appropriate affect. Intact judgment and insight. - Labs CBC & Chem 7: 08/03/20 03:30 08/03/20 03:30 Labs: Abnormal Lab Results - Last 24 Hours (Table) 08/02/20 08/03/20 08/03/20 Range/Units 05:20 03:30 03:30 WBC 15.8 H (3.8-10.6) k/uL RBC 2.75 L (3.80-5.40) m/uL Hgb 7.7 L (11.4-16.0) gm/dL Hct 24.5 L (34.0-46.0) % Neutrophils # 12.7 H (1.3-7.7) k/uL Chloride 112 H (98-107) mmol/L Carbon Dioxide 19 L (22-30) mmol/L Glucose 107 H (74-99) mg/dL Calcium 7.5 L (8.4-10.2) mg/dL AST 49 H (14-36) U/L C-Reactive Protein 147.5 H (<10.0) mg/L Total Protein 5.9 L (6.3-8.2) g/dL Albumin 2.2 L (3.5-5.0) g/dL Procalcitonin 1.11 H (0.02-0.09) ng/mL Microbiology - Last 24 Hours (Table) 08/01/20 08:53 Blood Culture Gram Stain - Preliminary Blood Blood Culture - Preliminary Presumptive MRSA Assessment and Plan Plan: Assessment: 1 Sepsis septic shock secondary to infective endocarditis and staphylococcal bacteremia/MRSA. The blood cultures positive for staph aureus/MRSA and the patient is currently on vancomycin. The patient has evidence of vegetation involving the tricuspid valve, including the posterior leaflet 2 Right midlung infiltrate in addition to lesions, cavitary lesion, suspect septic emboli with a component of pneumonia 3 Sepsis with hypotension requiring norepinephrine for bacteremia secondary to IV drug use 4 Leukocytosis secondary to above, improving at 12.6 5 Thrombocytopenia secondary to above, most likely consumptive secondary septic shock, plt is 117K improved compared to yesterday 6 Acute renal failure secondary to above, improved 7 IV drug use 8 History of ADHD 9 History of anxiety 10 Bipolar disorder 11 Hepatitis C 12 Hepatitis B reactive antibodies Plan: We'll continue same antibiotics, repeat blood cultures today. 3 has been reviewed, there is interval development of loculated right-sided pleural effusion possibly empyema, this may require placement of pigtail chest tube for drainage and possible instillation of TPA, we will wait another 24 hours, we'll likely obtain the CT chest tomorrow. Will await results of the repeat blood cultures, will continue monitoring the patient in the intensive care unit, will follow I performed a history & physical examination of the patient and discussed their management with my nurse practitioner, Colleen Tom. I reviewed the nurse practitioner's note and agree with the documented findings and plan of care. Lung sounds are positive for diminished breath sounds. The findings and the impression was discussed with the patient. I attest to the documentation by the nurse practitioner. Time with Patient: Greater than 30
--- NOTE | 2020-08-03 11:42 | PN ---
PROGRESS NOTE Shasha is a 30-year-old lady who was admitted to ICU with tricuspid valve endocarditis with bilateral septic emboli. She has some discomfort in the right side of her chest. Remains in sinus rhythm with mild sinus tachycardia but improved compared to where she was and hemodynamically stable. PHYSICAL EXAMINATION: On exam, she is afebrile. Heart rate is 90 to 100 beats per minute. Blood pressure is 131/72. Respiratory rate is 18. Chest exam reveals diminished air entry at the bases with occasional rhonchi. Heart exam reveals first and second heart sounds and a systolic murmur at the left lower sternal border. Abdomen is soft. Examination of extremities reveals 1+ edema bilaterally. LABS: Labs show a hemoglobin of 7.7, platelet count is 190. Potassium is 3.6. Creatinine is 0.8. ASSESSMENT: Tricuspid valve endocarditis. Patient is stable hemodynamically. White cell count is still elevated. Blood cultures are growing methicillin sensitive Staph aureus. We will continue to watch her closely. MMODL / IJN: [id number] /
--- NOTE | 2020-08-03 19:52 | P.PN ---
Subjective Progress Note Date: 08/02/20 Principal diagnosis: High suspicion for tricuspid valve endocarditis with septic emboli to the lungs Sepsis Right midlung infiltrate- cavitary lesion/suspected emboli 30-year-old female patient admitted on high suspicion for tricuspid valve endocarditis with septic emboli to the lungs, sepsis with hypotension, right midlung infiltrate, cavitary lesion and suspected emboli versus pneumonia, leukocytosis. Past medical history significant for IV drug abuse, heroin, bipolar disorder, anxiety, attention deficit hyperactivity disorder and chronic ongoing tobacco abuse. 07/31/2020 Patient is seen and evaluated at bedside in ICU; currently resting comfortably in bed; does tend to hold her breath and complaining of chest pain while talking Vital signs are stable with a temperature of 99, pulse 117, respiration 24 and blood pressure of 119/60; patient is currently off levophed Remains on IV cefepime and vancomycin; IDs on board; patient's blood cultures have been positive for gram-positive cocci in clusters 2 out of 2 sets; 2-D echo is done and results are pending Cardiothoracic surgery is on board and recommend JESSICA for further evaluation of l eft-sided Paige's; patient does not have any class I indication for surgical intervention at this time We will start patient on IV Ativan to be used when necessary for anxiety May be transferred out of ICU later today for remains stable 08/01/2020 Patient is currently in the MICU. Currently being treated for infected endocarditis secondary to pulmonary infiltrate/pneumonia/septic emboli. Current ly on vancomycin due to cultures positive for staph aureus. 2-D echocardiogram showed vegetation cannot be ruled out involving tricuspid valve. Scheduled for JESSICA today. Patient is lethargic and drowsy otherwise. No complaints of chest pain or worsening shortness of breath. No fever. Laboratory data showed diabetes 0.0, hemoglobin 8.2, weight is 102 Sodium 137 potassium 3.6 chloride 109, BUN [address] surgery, pulmonary and cardiology is on board. 08/02/2020 Patient is currently lying in the bed. Awake alert and oriented x3 seems to be lethargic. Patient has been afebrile. Had JESSICA done yesterday showed tricuspid leaflet vegetation and moderate TR. LV systolic ejection fraction is 60%. Patient is being continued on antibiotics in the form of vancomycin. Repeat blood cultures showing MRSA as well. Liver ultrasound showed cholelithiasis, hepatomegaly and no ductal dilatation was noted. Blood pressure is stable and still tachycardic. Currently on IV hydration with normal saline. Denied any nausea or vomiting or abdominal pain. Patient is complaining of constipation and stool softeners will be added. Pulmonary, CT surgery is on board. current medications reviewed. Objective - Vital Signs Vital signs: Vital Signs Temp 98.2 F 08/02/20 12:00 Pulse 102 H 08/02/20 15:00 Resp 61 H 08/02/20 15:00 BP 138/76 08/02/20 15:00 Pulse Ox 96 08/02/20 15:00 Intake & Output 08/01/20 08/02/20 08/02/20 18:59 06:59 18:59 Intake Total 2060 2340 2184 Output Total 610 640 470 Balance 1450 1700 1714 Weight 77.2 kg Intake: IV 2060 1940 1440 Potassium Chloride 20 meq 150 In Water For Injection 1 100ml.bag @ 50 mls/hr IVPB Q2H CAROL ANN Rx#: [id number] Sodium Chloride 0.9% 1, 1560 1690 1040 000 ml @ 130 mls/hr IV . Q7H42M CAROL ANN Rx#:[id number] Vancomycin 1,500 mg In 500 250 250 Sodium Chloride 0.9% 250 ml @ 125 mls/hr IVPB Q8H CAROL ANN Rx#:[id number] Oral 400 744 Output: Urine 610 640 470 Other: Voiding Method Indwelling Catheter Indwelling Catheter Indwelling Catheter - Exam - Exam GENERAL EXAM: Alert, pleasant 30-year-old female patient, on room air, fairly comfortable in no apparent distress. HEAD: Normocephalic. EYES: Normal reaction of pupils, equal size. NOSE: Clear with pink turbinates. THROAT: No erythema or exudates. NECK: No masses, no JVD. CHEST: No chest wall deformity. LUNGS: Equal air entry with few scattered rhonchi more so on the right lung CVS: S1 and S2 normal with an audible murmur, regular rhythm. ABDOMEN: No hepatosplenomegaly, normal bowel sounds, no guarding or rigidity. SPINE: No scoliosis or deformity SKIN: No rashes CENTRAL NERVOUS SYSTEM: No focal deficits, tone is normal in all 4 extremities. EXTREMITIES: There is no peripheral edema. No clubbing, no cyanosis. Peripheral pulses are intact. - Labs CBC & Chem 7: 08/03/20 03:30 08/03/20 03:30 Labs: Abnormal Lab Results - Last 24 Hours (Table) 08/01/20 08/02/20 08/02/20 Range/Units 08:53 05:20 05:20 WBC 12.6 H (3.8-10.6) k/uL RBC 2.77 L (3.80-5.40) m/uL Hgb 8.0 L (11.4-16.0) gm/dL Hct 24.6 L (34.0-46.0) % Plt Count 117 L (150-450) k/uL Neutrophils # 9.9 H (1.3-7.7) k/uL Sodium 136 L (137-145) mmol/L Potassium 3.2 L (3.5-5.1) mmol/L Chloride 108 H (98-107) mmol/L Carbon Dioxide 21 L (22-30) mmol/L Glucose 125 H (74-99) mg/dL Calcium 7.4 L (8.4-10.2) mg/dL AST 140 H (14-36) U/L ALT 48 H (4-34) U/L C-Reactive Protein 198.5 H (<10.0) mg/L Total Protein 5.6 L (6.3-8.2) g/dL Albumin 2.2 L (3.5-5.0) g/dL Amylase <30 L (30-110) U/L Procalcitonin 1.60 H (0.02-0.09) ng/mL 08/02/20 Range/Units 05:20 WBC (3.8-10.6) k/uL RBC (3.80-5.40) m/uL Hgb (11.4-16.0) gm/dL Hct (34.0-46.0) % Plt Count (150-450) k/uL Neutrophils # (1.3-7.7) k/uL Sodium (137-145) mmol/L Potassium (3.5-5.1) mmol/L Chloride (98-107) mmol/L Carbon Dioxide (22-30) mmol/L Glucose (74-99) mg/dL Calcium (8.4-10.2) mg/dL AST (14-36) U/L ALT (4-34) U/L C-Reactive Protein (<10.0) mg/L Total Protein (6.3-8.2) g/dL Albumin (3.5-5.0) g/dL Amylase (30-110) U/L Procalcitonin 1.11 H (0.02-0.09) ng/mL Microbiology - Last 24 Hours (Table) 08/01/20 08:53 Blood Culture Gram Stain - Preliminary Blood Blood Culture - Preliminary Presumptive MRSA 07/30/20 11:34 Blood Culture Gram Stain - Final Blood Blood Culture - Final Methicillin resist S. aureus 07/30/20 12:17 Blood Culture Gram Stain - Final Blood Blood Culture - Final Methicillin resist S. aureus 08/01/20 08:53 Blood Culture - Final Blood Assessment and Plan Assessment: 1. Right midlung infiltrate/cavitary lesion/suspected septic emboli versus pneumonia - Patient is started on IV Zosyn and vancomycin; Zosyn has been discontinued with blood cultures positive for staph aureus. echocardiogram showed possible tricuspid valve visitation; cardiothoracic surgery and cardiology is following. - HIV screen and hepatitis is ordered and pending 2. Septic shock secondary to infected endocarditis and staph aureus bacteremia; patient didn't require norepinephrine; patient remains on continuous IV fluid resuscitation 3. UTI; IV antibiotics as indicated above; we will adjust antibiotic treatment. Urine cx no growth 4. Acute renal injury; continue with IV fluid resuscitation as indicated above; we will monitor strict SHREYAS's; daily weights, renal function and electrolytes; avoid nephrotoxic agents 5. IV drug abuse; continue with counseling 6. History of ADHD; continue with outpatient psych follow-up 7. Bipolar disorder; outpatient psych follow-up DVT prophylaxis; SCDs/subcu heparin CODE STATUS; full code Time with Patient: Greater than 30
--- NOTE | 2020-08-03 19:58 | P.PN ---
Subjective Progress Note Date: 08/03/20 Principal diagnosis: High suspicion for tricuspid valve endocarditis with septic emboli to the lungs Sepsis Right midlung infiltrate- cavitary lesion/suspected emboli 30-year-old female patient admitted on high suspicion for tricuspid valve endocarditis with septic emboli to the lungs, sepsis with hypotension, right midlung infiltrate, cavitary lesion and suspected emboli versus pneumonia, leukocytosis. Past medical history significant for IV drug abuse, heroin, bipolar disorder, anxiety, attention deficit hyperactivity disorder and chronic ongoing tobacco abuse. 07/31/2020 Patient is seen and evaluated at bedside in ICU; currently resting comfortably in bed; does tend to hold her breath and complaining of chest pain while talking Vital signs are stable with a temperature of 99, pulse 117, respiration 24 and blood pressure of 119/60; patient is currently off levophed Remains on IV cefepime and vancomycin; IDs on board; patient's blood cultures have been positive for gram-positive cocci in clusters 2 out of 2 sets; 2-D echo is done and results are pending Cardiothoracic surgery is on board and recommend JESSICA for further evaluation of l eft-sided Paige's; patient does not have any class I indication for surgical intervention at this time We will start patient on IV Ativan to be used when necessary for anxiety May be transferred out of ICU later today for remains stable 08/01/2020 Patient is currently in the MICU. Currently being treated for infected endocarditis secondary to pulmonary infiltrate/pneumonia/septic emboli. Current ly on vancomycin due to cultures positive for staph aureus. 2-D echocardiogram showed vegetation cannot be ruled out involving tricuspid valve. Scheduled for JESSICA today. Patient is lethargic and drowsy otherwise. No complaints of chest pain or worsening shortness of breath. No fever. Laboratory data showed diabetes 0.0, hemoglobin 8.2, weight is 102 Sodium 137 potassium 3.6 chloride 109, BUN [address] surgery, pulmonary and cardiology is on board. 08/02/2020 Patient is currently lying in the bed. Awake alert and oriented x3 seems to be lethargic. Patient has been afebrile. Had JESSICA done yesterday showed tricuspid leaflet vegetation and moderate TR. LV systolic ejection fraction is 60%. Patient is being continued on antibiotics in the form of vancomycin. Repeat blood cultures showing MRSA as well. Liver ultrasound showed cholelithiasis, hepatomegaly and no ductal dilatation was noted. Blood pressure is stable and still tachycardic. Currently on IV hydration with normal saline. Denied any nausea or vomiting or abdominal pain. Patient is complaining of constipation and stool softeners will be added. Pulmonary, CT surgery is on board. 08/03/2020 Patient is currently in MICU. Sitting in the chair, seems anxious. Tachycardic on examination. Blood pressure is stable. Patient did have T-max of 101.4 last night. Currently afebrile chest x-ray showed diffuse pleural-parenchymal changes with mild progression. Findings could be on the basis of multifocal pneumonia rather than CHF. Repeat blood cultures have been positive again for MRSA. Patient is on antibiotics tomorrow vancomycin denied any complaints of nausea or vomiting or diarrhea. No involvement overnight. Patient does urine output. Laboratory test showed WBC trending up to 15.8, hemoglobin 7.7 platelets 193, sodium 137 potassium 3.6 chloride 112, BUN 8 and creatinine 0.81 current medications reviewed. Objective - Vital Signs Vital signs: Vital Signs Temp 98.6 F 08/03/20 08:00 Pulse 101 H 08/03/20 11:00 Resp 29 H 08/03/20 11:00 BP 139/90 08/03/20 11:00 Pulse Ox 91 L 08/03/20 11:00 Intake & Output 08/02/20 08/03/20 08/03/20 18:59 06:59 18:59 Intake Total 2824 1782 872 Output Total 585 575 330 Balance 2239 1207 542 Weight 77.8 kg Intake: IV 2080 1560 650 Potassium Chloride 20 meq 150 In Water For Injection 1 100ml.bag @ 50 mls/hr IVPB Q2H CAR[facility] ANN Rx#: [id number] Sodium Chloride 0.9% 1, 1430 1560 650 000 ml @ 130 mls/hr IV . Q7H42M [facility] ANN Rx#:[id number] Vancomycin 1,500 mg In 500 Sodium Chloride 0.9% 250 ml @ 125 mls/hr IVPB Q8H [facility] ANN Rx#:[id number] Oral 744 222 222 Output: Urine 585 575 330 Other: Voiding Method Indwelling Catheter Indwelling Catheter Indwelling Catheter - Exam - Exam GENERAL EXAM: Alert, pleasant 30-year-old female patient, on room air, fairly comfortable in no apparent distress. HEAD: Normocephalic. EYES: Normal reaction of pupils, equal size. NOSE: Clear with pink turbinates. THROAT: No erythema or exudates. NECK: No masses, no JVD. CHEST: No chest wall deformity. LUNGS: Equal air entry with few scattered rhonchi more so on the right lung CVS: S1 and S2 normal with an audible murmur, regular rhythm. ABDOMEN: No hepatosplenomegaly, normal bowel sounds, no guarding or rigidity. SPINE: No scoliosis or deformity SKIN: No rashes CENTRAL NERVOUS SYSTEM: No focal deficits, tone is normal in all 4 extremities. EXTREMITIES: There is no peripheral edema. No clubbing, no cyanosis. Peripheral pulses are intact. - Labs CBC & Chem 7: 08/03/20 03:30 08/03/20 03:30 Labs: Abnormal Lab Results - Last 24 Hours (Table) 08/03/20 08/03/20 Range/Units 03:30 03:30 WBC 15.8 H (3.8-10.6) k/uL RBC 2.75 L (3.80-5.40) m/uL Hgb 7.7 L (11.4-16.0) gm/dL Hct 24.5 L (34.0-46.0) % Neutrophils # 12.7 H (1.3-7.7) k/uL Chloride 112 H (98-107) mmol/L Carbon Dioxide 19 L (22-30) mmol/L Glucose 107 H (74-99) mg/dL Calcium 7.5 L (8.4-10.2) mg/dL AST 49 H (14-36) U/L C-Reactive Protein 147.5 H (<10.0) mg/L Total Protein 5.9 L (6.3-8.2) g/dL Albumin 2.2 L (3.5-5.0) g/dL Microbiology - Last 24 Hours (Table) 08/01/20 08:53 Blood Culture Gram Stain - Final Blood Blood Culture - Final Methicillin resist S. aureus Assessment and Plan Assessment: 1. Right midlung infiltrate/cavitary lesion/suspected septic emboli and pneumonia - Patient is started on IV Zosyn and vancomycin; Zosyn has been discontinued with blood cultures positive for staph aureus. echocardiogram showed possible tricuspid valve visitation; cardiothoracic surgery and cardiology is following. - Hepatitis C and B antibodies positive. 2. Septic shock secondary to infected endocarditis and staph aureus bacteremia; patient didn't require norepinephrine; patient remains on continuous IV fluid resuscitation. -Blood pressure is controlled but patient is still tachycardic. Status post JESSICA showed tricuspid valvular vegetation and moderate TR. 3. UTI; IV antibiotics as indicated above; we will adjust antibiotic treatment. Urine cx no growth 4. Acute renal injury; continue with IV fluid resuscitation as indicated above; we will monitor strict SHREYAS's; daily weights, renal function and electrolytes; avoid nephrotoxic agents 5. IV drug abuse; continue with counseling 6. History of ADHD; continue with outpatient psych follow-up 7. Bipolar disorder; outpatient psych follow-up DVT prophylaxis; SCDs/subcu heparin CODE STATUS; full code Time with Patient: Greater than 30
--- NOTE | 2020-08-03 22:12 | PN ---
PROGRESS NOTE DATE OF SERVICE: 08/03/2020 REASON FOR FOLLOWUP: MRSA tricuspid valve endocarditis. INTERVAL HISTORY: The patient is currently afebrile. She is breathing comfortably. Denies having any chest pain or cough. No abdominal pain and no diarrhea. PHYSICAL EXAMINATION: Blood pressure 131/79, pulse of 97, temperature 98.1. She is 91% on room air. General description is a middle-aged female lying in bed in no distress. RESPIRATORY SYSTEM: Unlabored breathing with decreased breath sounds at the base. No wheeze. HEART: S1, S2. Regular rate and rhythm. ABDOMEN: Soft. No tenderness. LABS: Hemoglobin 7.7, white count 15.8, creatinine 0.81. Vancomycin trough 27.3. Blood culture repeat still positive. DIAGNOSTIC IMPRESSION AND PLAN: Patient with MRSA bacteremia secondary to tricuspid valve endocarditis from injection drug use. Vancomycin dose needs to be adjusted to keep the trough around 15. Blood cultures repeated daily to document clearance of her bacteremia. Continue supportive care. MMODL / IJN: [id number] / MTDD
[2020-08-04] MEDS: SODIUM CHLORIDE 0.9% 1,000 ML IV SCH ×3 (03:13→13:53)
[2020-08-04] MEDS: VANCOMYCIN 1,500 MG in SODIUM CHLORIDE 0.9% 250 ML IVPB SCH ×2 (03:13→13:53)
[2020-08-04] MEDS: HYDROmorphone 1 MG/ML 1 ML SYRINGE IVP PRN ×5 (03:19→15:27)
[2020-08-04 04:36] LABS: WBC 12.8 k/uL (3.8-10.6)
[2020-08-04 04:37] LABS: Basophils # (A) 0.1 k/uL (0-0.2); Basophils % (A) 0 %; Eosinophils # (A) 0.1 k/uL (0-0.7); Eosinophils % (A) 1 %; HCT 21.5 % (34.0-46.0); Lymphocytes # (A) 1.5 k/uL (1.0-4.8); Lymphocytes % (A) 12 %; MCH 28.8 pg (25.0-35.0); MCHC 32.4 g/dL (31.0-37.0); MCV 88.9 fL (80.0-100.0); Mean Platelet Volume 8.2; Monocytes # (A) 0.7 k/uL (0-1.0); Monocytes % (A) 5 %; Neutrophils # (A) 10.2 k/uL (1.3-7.7); Neutrophils % (A) 80 %; Platelet Count 206 k/uL (150-450); RBC 2.42 m/uL (3.80-5.40); RDW 14.7 % (11.5-15.5)
[2020-08-04 04:54] LABS: ALT 27 U/L (4-34); African American GFR (CKD) >90 (>60 ml/min/1.73 sqM); Blood Urea Nitrogen 9 mg/dL (7-17); Calcium 7.2 mg/dL (8.4-10.2); Carbon Dioxide 22 mmol/L (22-30); Chloride 111 mmol/L (98-107); Non-African American GFR(CKD) 86 (>60 ml/min/1.73 sqM); Potassium 3.9 mmol/L (3.5-5.1); Total Bilirubin 0.5 mg/dL (0.2-1.3); Total Protein 5.4 g/dL (6.3-8.2)
[2020-08-04 05:17] LABS: AST 47 U/L (14-36); Alkaline Phosphatase 56 U/L (38-126); Anion Gap 2 mmol/L; Glucose 101 mg/dL (74-99); Sodium 135 mmol/L (137-145)
[2020-08-04 06:09] LABS: C Reactive Protein 175.3 mg/L (<10.0)
[2020-08-04] MEDS: LORazepam 2 MG/ML INJ IV PRN ×3 (06:23→16:01)
--- NOTE | 2020-08-04 08:25 | XR ---
EXAMINATION TYPE: XR chest 1V portable DATE OF EXAM: 08/04/2020 COMPARISON: Chest x-ray 08/03/2020 HISTORY: Abnormal chest x-ray, ICU management TECHNIQUE: Single frontal view of the chest is obtained. FINDINGS: Opacity at the superolateral right chest is noted, additional pleural parenchymal changes show similar appearance. Cardiac mediastinal silhouette not significantly changed. There is a right s ubclavian central venous catheter with the distal tip over the right atrium. Persistent obscured magalis diaphragms, blunting of the costophrenic angles. IMPRESSION: Suspect bilateral pleural effusions, there may be loculation on the right. Correlate for pneumonia, edema.
[2020-08-04] MEDS: PANTOPRAZOLE 40 MG/10 ML VIAL IVP SCH (09:26)
--- NOTE | 2020-08-04 11:11 | P.PN ---
Subjective Progress Note Date: 08/04/20 Right-sided chest pain, suspected septic emboli, tricuspid vegetation This is a pleasant 30-year-old female patient with a known history of ADHD, bipolar disorder, severe anxiety, chronic tobacco dependence. [facility] as well as with a Dr. Sidhu for Suboxone. She also has a history of IV drug abuse that she had done for approximately 4 years then states she was clean for 4 years. Unfortunately in June 2020 she started using IV heroin again. Approximate 4 days ago she started having migraines which turned into nausea, vomiting and diarrhea. She had chills. Unsure if she had a fever. Last evening she started developed some right-sided chest pain but tried to sleep however woke up earlier this morning and was more severe and she presented to the emergency room just after midnight. CT angiogram ruled out any large or central pulmonary emboli. Suboptimal contrast. There is noted scattered irregular peripheral patchy groundglass opacities throughout the l ungs. There is also scattered lesions with some cavitary lesion more so on the right upper lobe raising the possibility of septic emboli with central necrosis. White count 11.5. Hemoglobin 11.2. Platelet count 50,000. Lymphocytes 0.6. Sodium 132. Potassium 3.8. Creatinine 1.35. Urine with moderate blood and moderate leukocytosis. Urine hCG negative. Coronavirus by PCR negative. Initial lactic acid 2.7. Currently 0.9. She did receive 2 L of fluid resuscitation. She was given vancomycin and Zosyn. She's been hypotensive and is currently on norepinephrine at 0.05 mcg/kg/m, approximately 3.5 mcg/m. 0.9 normal saline at 130 ML's per hour. She is seen in consultation in the emerg ency room. She is currently awake and alert. She is still having right-sided chest discomfort. No worsening shortness of breath, cough or congestion. Maintaining O2 saturation in the 90s on room air. Echocardiogram is pending was concerns of vegetation. CT services have been consulted. The patient is seen today 07/31/2020 in follow-up in the intensive care unit. She is currently resting comfortably in bed. Awake and alert in no acute distress. She is maintaining O2 saturation in the 90s on room air. The past 24 hours did have a T-max of 102.5. Currently 99.0. She has 0.9 normal saline running at 130 ML's per hour. She has been weaned off the norepinephrine. Blood pressure currently stable. She denies any worsening shortness of breath, cough or congestion. Still with some right-sided chest discomfort. Echocardiogram results are pending. Plan is for JESSICA in a.m. White count 14.0. Hemoglobin 9.6. Platelet count 65,000. Sodium 134. Potassium 3.3. Bicarb 23. Creatinine 0.71. Pro-calcitonin 4.06. Hepatitis B and C antibodies are reactive. HIV results are pending. Blood cultures were positive for gram- positive cocci in clusters. She remains on vancomycin and cefepime. On 08/01/2020 the patient is being seen in follow-up in the intensive care unit. The patient is currently being treated for infected endocarditis with secondary pulmonary infiltrates/pneumonia/septic emboli. The patient's with cultures positive for staph aureus and the patient is currently on vancomycin. Also, a 2-D echocardiogram showing moderate pulmonary hypertension, right-sided pressures of 59 mmHg an underlying vegetation cannot be predicted ruled out involving the tricuspid valve. LV is within normal. A JESSICA is to follow today. The patient remains normal saline 130 mL an hour. The patient remains on IV vancomycin. Appropriate calcitonin level was at 4.0. She is afebrile. She is slightly tachycardic today. No nausea. No vomiting. No emesis. She does have some vague abdominal pain mainly in the right upper quadrant area. Her liver function tested and within normal limits. The liver function tests from this morning was within normal limits. The patient is supposed to undergo a JESSICA today. Blood cultures positive for MRSA. On 08/02/2020, the patient is being seen in follow-up in the intensive care unit. The JESSICA was done yesterday and it confirmed the presence of endocarditis involving the tricuspid valve. The posterior tricuspid leaflet showed a lesion attached to 8 and the leaflet was flail and there was moderate degree of tricuspid regurgitation. Mitral valve was normal. LV ejection fraction was 60%. There is no evidence of any [id number] shunt. Repeat cultures were done and there are still negative for now. The last blood cultures from 07/30/2020 and she is hemodynamically stable. An ultrasound the liver was done yesterday that showed cholelithiasis and hepatomegaly otherwise, no other abnormalities was noted. No evidence of any common bile duct dilatation. No nausea. No vomiting. No emesis. Dr. wrightardijaden in normal sinus rhythm. Rajan cath is in place. She has an adequate urine output. IV fluids is running in the form of normal saline at the rate of 1 30 mL an hour. On 08/03/2020 patient seen in follow-up in the intensive care unit, and she is currently up in the recliner, is tachypneic, shallow breaths, she is complaining of pain with deep inspiration and her right chest, today's chest x-ray is reviewed showing bilateral infiltrates and worsening of right pleural effusion loculated, and is likely parapneumonic in nature, patient did have a fever spike at 3:00 in the morning with a temp of 101.4F, on room air, and with a pulse ox of 3%, she is on 0.9 normal saline at a rate of 1:30 ML per hour, lung sounds reveal diminished breath sounds at bilateral bases with dullness to percussion. She has follow-up blood cultures continue to be positive, last blood culture from 08/01/2020 is positive for presumptive MRSA patient is on vancomycin for antibiotic coverage. ID Service is following. In sinus mechanism, slightly tachycardic with a rate of 108 BPM, hemodynamically she is stable, not requiring any vasopressor support, today's labs have been reviewed, her platelet count 293,000 on today's labs, white blood cell count has slightly tented up since yesterday, up to 15.8, hemoglobin is 7.7 with no obvious signs of bleeding, sodium is 137, potassium 3.6, chloride is 112 CO2 is 19, BUN is 8, creatinine 0.81, there is slightly down to 147.5 from 198.5 on yesterday's labs. Pro- calcitonin level is down to 1.11 on yesterday's labs, which is improving. Nausea vomiting or diarrhea, patient is tolerating oral intake, she appears to be mildly generally swollen including her upper and lower extremities. Is in place and patient is producing urine and the order of 30-50 ML per hour. On 08/04/2020 patient seen in follow-up in the intensive care unit, she is awake and alert, more dyspneic on today's exam, tachypneic, taking shallow breaths, today's chest x-ray has been reviewed showing bilateral pleural effusions with loculation on the right, possible empyema, patient remains on antibiotics form of vancomycin, and follow blood culture from 08/01/2020 was again positive for MRSA, ID service is following. Has been afebrile overnight, he remains on 2 L of oxygen and the pulse ox is 95-97%, blood pressure is 146/103, she is in sinus mechanism, tachycardic with a rate of 104 BPM. Today's labs have been reviewed showing renal cell count of 12.8, hemoglobin is 7, sodium is 135 potassium 3.9, chloride is 111, B1 is 9, creatinine 0.9, CRP was 175, and this is essentially not improved much, her pro calcitonin is 1.1. Is taking shallow breaths, she is having erratic chest pain with deep inspiration, lung sounds are diminished bilaterally. Objective - Vital Signs Vital signs: Vital Signs Temp 99 F 08/04/20 08:00 Pulse 104 H 08/04/20 10:00 Resp 42 H 08/04/20 10:00 BP 146/103 08/04/20 10:00 Pulse Ox 95 08/04/20 10:00 Intake & Output 08/03/20 08/04/20 08/04/20 18:59 06:59 18:59 Intake Total 2351 1950 390 Output Total 980 845 250 Balance 1371 1105 140 Weight 89.4 kg Intake: IV 1685 1550 390 Sodium Chloride 0.9% 1, 1560 1300 390 000 ml @ 130 mls/hr IV . Q7H42M [facility] Rx#:[id number] Vancomycin 1,500 mg In 125 250 Sodium Chloride 0.9% 250 ml @ 125 mls/hr IVPB Q12H [facility] Rx#:[id number] Oral 666 400 Output: Urine 980 845 250 Other: Voiding Method Indwelling Catheter Indwelling Catheter # Bowel Movements 1 - Exam GENERAL EXAM: Alert, very pleasant, 30-year-old room air, with a pulse ox of 93%, sitting up in the recliner slightly tachypneic but appears to be in no acute distress. Comfortable in no apparent distress. HEAD: Normocephalic/atraumatic. EYES: Normal reaction of pupils, equal size. Conjunctiva pink, sclera white. NOSE: Clear with pink turbinates. THROAT: No erythema or exudates. NECK: No masses, no JVD, no thyroid enlargement, no adenopathy. CHEST: No chest wall deformity. Symmetrical expansion. LUNGS: Equal air entry with positive bases, and dullness to percussion at the bases CVS: Regular rate and rhythm, normal S1 and S2, no gallops, no murmurs, no rubs ABDOMEN: Soft, nontender. No hepatosplenomegaly, normal bowel sounds, no guarding or rigidity. EXTREMITIES: No clubbing, mild generalized edema, no cyanosis, 2+ pulses and upper and lower extremities. MUSCULOSKELETAL: Muscle strength and tone normal. SPINE: No scoliosis or deformity SKIN: No rashes CENTRAL NERVOUS SYSTEM: Alert and oriented -3. No focal deficits, tone is normal in all 4 extremities. PSYCHIATRIC: Alert and oriented -3. Appropriate affect. Intact judgment and insight. - Labs CBC & Chem 7: 08/04/20 04:18 08/04/20 04:18 Labs: Abnormal Lab Results - Last 24 Hours (Table) 08/04/20 08/04/20 Range/Units 04:18 04:18 WBC 12.8 H (3.8-10.6) k/uL RBC 2.42 L (3.80-5.40) m/uL Hgb 7.0 L (11.4-16.0) gm/dL Hct 21.5 L (34.0-46.0) % Neutrophils # 10.2 H (1.3-7.7) k/uL Sodium 135 L (137-145) mmol/L Chloride 111 H (98-107) mmol/L Glucose 101 H (74-99) mg/dL Calcium 7.2 L (8.4-10.2) mg/dL AST 47 H (14-36) U/L C-Reactive Protein 175.3 H (<10.0) mg/L Total Protein 5.4 L (6.3-8.2) g/dL Albumin 2.0 L (3.5-5.0) g/dL Microbiology - Last 24 Hours (Table) 08/01/20 08:53 Blood Culture Gram Stain - Final Blood Blood Culture - Final Methicillin resist S. aureus Assessment and Plan Plan: Assessment: 1 Sepsis septic shock secondary to infective endocarditis and staphylococcal bacteremia/MRSA. The blood cultures positive for staph aureus/MRSA and the patient is currently on vancomycin. The patient has evidence of vegetation involving the tricuspid valve, including the posterior leaflet 2 Right midlung infiltrate in addition to lesions, cavitary lesion, suspect septic emboli with a component of pneumonia 3 Sepsis with hypotension requiring norepinephrine for bacteremia secondary to IV drug use 4 Leukocytosis secondary to above, improving at 12.6 5 Thrombocytopenia secondary to above, most likely consumptive secondary septic shock, plt is 117K improved compared to yesterday 6 Acute renal failure secondary to above, improved 7 IV drug use 8 History of ADHD 9 History of anxiety 10 Bipolar disorder 11 Hepatitis C 12 Hepatitis B reactive antibodies Plan: CXR has been reviewed with him pleural effusions, lung abscess/empyema. We'll obtain CT chest without contrast, continue same antibiotics, follow-up blood cultures are still positive for MRSA, patient remains on vancomycin, obtain foll ow-up cultures, we will also inquire with the transfer team at the [facility] for possibility of transfer to tertiary care facility. In the meantime continue medical treatment, will review the CT chest once available, may consider drainage of bilateral lung abscesses. I performed a history & physical examination of the patient and discussed their management with my nurse practitioner, Colleen Tom. I reviewed the nurse practitioner's note and agree with the documented findings and plan of care. Lung sounds are positive for diminished breath sounds. The findings and the impression was discussed with the patient. I attest to the documentation by the nurse practitioner. Time with Patient: Less than 30
--- NOTE | 2020-08-04 12:12 | P.PN ---
Subjective Progress Note Date: 08/04/20 High suspicion for tricuspid valve endocarditis with septic emboli to the lungs Sepsis Right midlung infiltrate- cavitary lesion/suspected emboli 30-year-old female patient admitted on high suspicion for tricuspid valve endocarditis with septic emboli to the lungs, sepsis with hypotension, right midlung infiltrate, cavitary lesion and suspected emboli versus pneumonia, leukocytosis. Past medical history significant for IV drug abuse, heroin, bipolar disorder, anxiety, attention deficit hyperactivity disorder and chronic ongoing tobacco abuse. 07/31/2020 Patient is seen and evaluated at bedside in ICU; currently resting comfortably in bed; does tend to hold her breath and complaining of chest pain while talking Vital signs are stable with a temperature of 99, pulse 117, respiration 24 and blood pressure of 119/60; patient is currently off levophed Remains on IV cefepime and vancomycin; IDs on board; patient's blood cultures have been positive for gram-positive cocci in clusters 2 out of 2 sets; 2-D echo is done and results are pending Cardiothoracic surgery is on board and recommend JESSICA for further evaluation of left-sided Paige's; patient does not have any class I indication for surgical intervention at this time We will start patient on IV Ativan to be used when necessary for anxiety May be transferred out of ICU later today for remains stable 08/01/2020 Patient is currently in the MICU. Currently being treated for infected endocarditis secondary to pulmonary infiltrate/pneumonia/septic emboli. Currently on vancomycin due to cultures positive for staph aureus. 2-D echocard iogram showed vegetation cannot be ruled out involving tricuspid valve. Scheduled for JESSICA today. Patient is lethargic and drowsy otherwise. No complaints of chest pain or worsening shortness of breath. No fever. Laboratory data showed diabetes 0.0, hemoglobin 8.2, weight is 102 Sodium 137 potassium 3.6 chloride 109, BUN [address] surgery, pulmonary and cardiology is on board. 08/02/2020 Patient is currently lying in the bed. Awake alert and oriented x3 seems to be lethargic. Patient has been afebrile. Had JESSICA done yesterday showed tricuspid leaflet vegetation and moderate TR. LV systolic ejection fraction is 60%. Patient is being continued on antibiotics in the form of vancomycin. Repeat blood cultures showing MRSA as well. Liver ultrasound showed cholelithiasis, hepatomegaly and no ductal dilatation was noted. Blood pressure is stable and still tachycardic. Currently on IV hydration with normal saline. Denied any nausea or vomiting or abdominal pain. Patient is complaining of constipation and stool softeners will be added. Pulmonary, CT surgery is on board. 08/03/2020 Patient is currently in MICU. Sitting in the chair, seems anxious. Tachycardic on examination. Blood pressure is stable. Patient did have T-max of 101.4 last night. Currently afebrile chest x-ray showed diffuse pleural-parenchymal changes with mild progression. Findings could be on the basis of multifocal pneumonia rather than CHF. Repeat blood cultures have been positive again for MRSA. Patient is on antibiotics tomorrow vancomycin denied any complaints of nausea or vomiting or diarrhea. No involvement overnight. Patient does urine output. Laboratory test showed WBC trending up to 15.8, hemoglobin 7.7 platelets 193, sodium 137 potassium 3.6 chloride 112, BUN 8 and creatinine 0.81 08/04/2020 Patient is seen and evaluated in follow-up continues to be closely monitored in the ICU. Multiple medical consultations following including pulmonary, intensi vist, and infectious disease. she is maintained on IV antibiotics in the form of vancomycin and will continue at this time. Patient is tachypneic and tachycardic on exam. patient is currently maintained on 2 L of oxygen via nasal cannula. she denies worsening shortness of breath, chest pain, or palpitations. chest x-ray today shows bilateral pleural effusions with some loculation on the right with possible pneumonia/edema. Patient awaiting computed tomography scan of the chest. Possibility of transferring to tertiary care center and case management is working on the transfer process. blood cultures continue to be positive and infectious disease is following and repeating daily blood cultures to monitor for clearance of bacteremia.Cardiothoracic surgery along with cardiology following. white blood count today is 12.8, hemoglobin is 7.0, sodium is 135, potassium is 3.9, current creatinine is 0.9. CRP trending up and currently 175.3. Review of systems: Constitutional: Reports fatigue, no reports of fever, or chills Cardiovascular: No reports of chest pain or palpitations Respiratory: reports intermittent shortness of breath and productive cough GI: No reports of nausea, vomiting, or diarrhea : No reports of dysuria or retention Neurovascular: reports of weakness All medications have been reviewed Active Medications Acetaminophen (Acetaminophen Tab 325 Mg Tab) 650 mg PO Q6HR PRN PRN Reason: Mild Pain or Fever > 100.5 Last Admin: 08/03/20 02:51 Dose: 650 mg Documented by: Hydromorphone HCl (Hydromorphone 1 Mg/Ml 1 Ml Syringe) 1 mg IVP Q2H PRN PRN Reason: Severe Pain Last Admin: 08/04/20 09:25 Dose: 1 mg Documented by: Sodium Chloride (Saline 0.9%) 1,000 mls @ 130 mls/hr IV .Q7H42M [facility] Last Admin: 08/04/20 07:00 Dose: 130 mls/hr Documented by: Vancomycin HCl 1,500 mg/ (Sodium Chloride) 250 mls @ 125 mls/hr IVPB Q12H [facility] Last Admin: 08/04/20 03:13 Dose: 125 mls/hr Documented by: Lorazepam (Lorazepam 2 Mg/Ml Inj) 1 mg IV Q4HR PRN PRN Reason: Anxiety Last Admin: 08/04/20 10:16 Dose: 1 mg Documented by: Miscellaneous Information (Potassium Replacement Protocol 1 Each Misc) 1 each MISCELLANE DAILY PRN; Protocol PRN Reason: Per Protocol Miscellaneous Information (Vancomycin Trough Due 1 Each Misc) 0 each MISCELLANE DIRECTED ONE Stop: 08/05/20 13:01 Naloxone HCl (Naloxone 0.4 Mg/Ml 1 Ml Vial) 0.2 mg IV Q2M PRN PRN Reason: Opioid Reversal Ondansetron HCl (Ondansetron 4 Mg/2 Ml Vial) 4 mg IVP Q8HR PRN PRN Reason: Nausea And Vomiting Pantoprazole Sodium (Pantoprazole 40 Mg/10 Ml Vial) 40 mg IVP DAILY [facility] Last Admin: 08/04/20 09:26 Dose: 40 mg Documented by: Objective - Vital Signs Vital signs: Vital Signs Temp 98.8 F 08/04/20 04:00 Pulse 98 08/04/20 06:00 Resp 25 H 08/04/20 06:00 BP 126/75 08/04/20 06:00 Pulse Ox 96 08/04/20 06:00 Intake & Output 08/03/20 08/04/20 08/04/20 18:59 06:59 18:59 Intake Total 2351 1950 Output Total 980 845 Balance 1371 1105 Intake: IV 1685 1550 Sodium Chloride 0.9% 1, 1560 1300 000 ml @ 130 mls/hr IV . Q7H42M [facility] Rx#:[id number] Vancomycin 1,500 mg In 125 250 Sodium Chloride 0.9% 250 ml @ 125 mls/hr IVPB Q12H [facility] Rx#:[id number] Oral 666 400 Output: Urine 980 845 Other: Voiding Method Indwelling Catheter Indwelling Catheter # Bowel Movements 1 - Exam GENERAL EXAM: Alert, pleasant 30-year-old female patient, tachypneic. Currently on 2 L of oxygen via nasal cannula HEAD: Normocephalic. EYES: Normal reaction of pupils, equal size. NOSE: Clear with pink turbinates. THROAT: No erythema or exudates. NECK: No masses, no JVD. CHEST: No chest wall deformity. LUNGS: Equal air entry with few scattered rhonchi more so on the right lung CVS: S1 and S2 normal with an audible murmur, regular rhythm. ABDOMEN: No hepatosplenomegaly, normal bowel sounds, no guarding or rigidity. SPINE: No scoliosis or deformity SKIN: No rashes CENTRAL NERVOUS SYSTEM: No focal deficits, tone is normal in all 4 extremities. EXTREMITIES: There is no peripheral edema. No clubbing, no cyanosis. Peripheral pulses are intact. - Labs CBC & Chem 7: 08/04/20 04:18 08/04/20 04:18 Labs: Abnormal Lab Results - Last 24 Hours (Table) 08/04/20 08/04/20 Range/Units 04:18 04:18 WBC 12.8 H (3.8-10.6) k/uL RBC 2.42 L (3.80-5.40) m/uL Hgb 7.0 L (11.4-16.0) gm/dL Hct 21.5 L (34.0-46.0) % Neutrophils # 10.2 H (1.3-7.7) k/uL Sodium 135 L (137-145) mmol/L Chloride 111 H (98-107) mmol/L Glucose 101 H (74-99) mg/dL Calcium 7.2 L (8.4-10.2) mg/dL AST 47 H (14-36) U/L C-Reactive Protein 175.3 H (<10.0) mg/L Total Protein 5.4 L (6.3-8.2) g/dL Albumin 2.0 L (3.5-5.0) g/dL Microbiology - Last 24 Hours (Table) 08/01/20 08:53 Blood Culture Gram Stain - Final Blood Blood Culture - Final Methicillin resist S. aureus Assessment and Plan Assessment: -Right midlung infiltrate/cavitary lesion/suspected septic emboli and pneumonia. patient is maintained on IV vancomycin and infectious disease is following. Blood cultures continue to be positive with MRSA, echocardiogram shows possible tricuspid valve vegitation - Hepatitis C and B antibodies positive. -septic shock secondary to infected endocarditis and Staphylococcus aureus bacteremia -status post JESSICA showing tricuspid valve vegetation -Acute urinary tract infection, present on admission -Acute renal injury -IV drug abuse -History of ADHD -Bipolar disorder -DVT prophylaxis: SCDs/ sub-q heparin -GI prophylaxis: protonix -Full code plan: continue with current medications and medical management. Continue with IV antibiotics in the form of vancomycin with daily blood cultures to monitor for clearance of bacteremia. Chest xray shows Suspect bilateral pleural effusions, there may be a loculation on the right correlate for pneumonia, edema. Computed tomography scan of the chest is ordered and pending at this time. Multiple medical consultations following including thoracic surgery and cardiology and recommending transfer to tertiary care center. Case management following and working on the transfer process. Further recommendations to follow. Guarded prognosis.
[2020-08-04 12:24] VITALS: TEMP 99.2
--- NOTE | 2020-08-04 12:40 | CT ---
EXAMINATION TYPE: CT chest wo con DATE OF EXAM: 08/04/2020 COMPARISON: 07/30/2020 HISTORY: Bilateral pneumonia, septic emboli, Sepsis CT DLP: 325.[address] of the chest was performed with lung and mediastinal window settings submitted. The la ck of contrast limits evaluation of the vascular, mediastinal and parenchymal structures including th e upper abdomen. LUNGS: There is significant interval progression of airspace disease. Several of the areas of focal i nfiltrate demonstrate cavitation. Large bilateral right greater than left pleural effusions are seen. Empyema is difficult to exclude given the lack of contrast. Loculated collection is seen within the right upper lobe laterally. Associated underlying volume loss also noted. MEDIASTINUM/MERLYN: Thoracic aorta is of normal caliber with limited evaluation given lack of contrast . The heart is enlarged. No evidence for mediastinal mass. No lymph nodes greater than 1cm. UPPER ABDOMEN: No significant abnormality is seen. OTHER: No significant other abnormality. IMPRESSION: 1. Significant interval progression of pneumonia with areas of cavitation now appreciated. 2. Large loculated pleural effusions as discussed above. As noted the lack of contrast limits evaluat ion for empyema.
--- NOTE | 2020-08-04 12:52 | PN ---
PROGRESS NOTE Shasha is a 30-year-old lady who is admitted to hospital with tricuspid valve endocarditis, bilateral septic emboli and had underwent a transesophageal echo that revealed vegetation involving the tricuspid valve with flail leaflet. She continues to be sick, tachycardic and continues to have positive blood cultures. They are currently in the process of transferring her to [facility]. PHYSICAL EXAMINATION: On exam, heart rate is 105 beats per minute. Blood pressure is 140/90. Respiratory rate is 26. Chest exam reveals diminished air entry with occasional rhonchi. Heart exam reveals first and second heart sounds and a systolic murmur at the left lower sternal border. Abdomen is soft. Examination of extremities revealed bilateral pitting edema. LABS: Labs show that the white cell count is elevated at 12.8, hemoglobin is 7, platelet count is 206. Potassium is 3.9. Creatinine is 0.9. ASSESSMENT: Tricuspid valve endocarditis with septic emboli. Continue antibiotics. Continue supportive care. Transfer the patient to a tertiary care center. MMODL / IJN: [id number] /
--- NOTE | 2020-08-04 14:31 | P.DS ---
Providers Date of admission: 07/30/20 03:46 Expected date of discharge: 08/04/20 Attending physician: Donna Adam Consults: 07/30/20 03:30 Consult Physician Routine Consulting Provider: Velia Arnold Consult Reason/Comments: Bilateral pneumonia; septic emboli; Hx IVDA Do you want consulting provider notified?: Yes 07/30/20 03:31 Consult Physician Routine Consulting Provider: Nabil Metz Consult Reason/Comments: Bilateral pneumonia; septic emboli Do you want consulting provider notified?: Yes 07/30/20 03:40 Consult Physician Routine Consulting Provider: [facility] Consult Reason/Comments: Chest pain Do you want consulting provider notified?: Yes 07/30/20 07:47 Consult Physician Urgent Consulting Provider: Cary Lock Consult Reason/Comments: Suspected endocarditis Do you want consulting provider notified?: Yes Primary care physician: [facility] Course: final diagnosis -Right midlung infiltrate/cavitary lesion/suspected septic emboli and pneumonia. Blood cultures continue to be positive with MRSA, echocardiogram shows possible tricuspid valve vegitation - Hepatitis C and B antibodies positive. -septic shock secondary to infected endocarditis and Staphylococcus aureus bacteremia -status post JESSICA showing tricuspid valve vegetation -Acute urinary tract infection, present on admission -Acute renal injury -IV drug abuse -History of ADHD -Bipolar disorder -DVT prophylaxis: SCDs/ sub-q heparin -GI prophylaxis: protonix -Full code Discharge disposition Patient is being transferred in a stable condition with guarded prognosis to [facility]. Patient will be accepted by Dr. Chelsie Dexter and Dr. Alvarado Henderson of [facility] for further evaluation at a tertiary treatment center. Total time taken is greater than 35 minutes. Hospital course High suspicion for tricuspid valve endocarditis with septic emboli to the lungs Sepsis Right midlung infiltrate- cavitary lesion/suspected emboli 30-year-old female patient admitted on high suspicion for tricuspid valve endocarditis with septic emboli to the lungs, sepsis with hypotension, right midlung infiltrate, cavitary lesion and suspected emboli versus pneumonia, leukocytosis. Past medical history significant for IV drug abuse, heroin, bipolar disorder, anxiety, attention deficit hyperactivity disorder and chronic ongoing tobacco abuse. 07/31/2020 Patient is seen and evaluated at bedside in ICU; currently resting comfortably in bed; does tend to hold her breath and complaining of chest pain while talking Vital signs are stable with a temperature of 99, pulse 117, respiration 24 and blood pressure of 119/60; patient is currently off levophed Remains on IV cefepime and vancomycin; IDs on board; patient's blood cultures have been positive for gram-positive cocci in clusters 2 out of 2 sets; 2-D echo is done and results are pending Cardiothoracic surgery is on board and recommend JESSICA for further evaluation of left-sided Paige's; patient does not have any class I indication for surgical intervention at this time We will start patient on IV Ativan to be used when necessary for anxiety May be transferred out of ICU later today for remains stable 08/01/2020 Patient is currently in the MICU. Currently being treated for infected endocarditis secondary to pulmonary infiltrate/pneumonia/septic emboli. Currently on vancomycin due to cultures positive for staph aureus. 2-D echocardiogram showed vegetation cannot be ruled out involving tricuspid valve. Scheduled for JESSICA today. Patient is lethargic and drowsy otherwise. No complaints of chest pain or worsening shortness of breath. No fever. Laboratory data showed diabetes 0.0, hemoglobin 8.2, weight is 102 Sodium 137 potassium 3.6 chloride 109, BUN [address] surgery, pulmonary and cardiology is on board. 08/02/2020 Patient is currently lying in the bed. Awake alert and oriented x3 seems to be lethargic. Patient has been afebrile. Had JESSICA done yesterday showed tricuspid leaflet vegetation and moderate TR. LV systolic ejection fraction is 60%. Patient is being continued on antibiotics in the form of vancomycin. Repeat blood cultures showing MRSA as well. Liver ultrasound showed cholelithiasis, hepatomegaly and no ductal dilatation was noted. Blood pressure is stable and still tachycardic. Currently on IV hydration with normal saline. Denied any nausea or vomiting or abdominal pain. Patient is complaining of constipation and stool softeners will be added. Pulmonary, CT surgery is on board. 08/03/2020 Patient is currently in MICU. Sitting in the chair, seems anxious. Tachycardic on examination. Blood pressure is stable. Patient did have T-max of 101.4 last night. Currently afebrile chest x-ray showed diffuse pleural-parenchymal changes with mild progression. Findings could be on the basis of multifocal pneumonia rather than CHF. Repeat blood cultures have been positive again for MRSA. Patient is on antibiotics tomorrow vancomycin denied any complaints of nausea or vomiting or diarrhea. No involvement overnight. Patient does urine output. Laboratory test showed WBC trending up to 15.8, hemoglobin 7.7 platelets 193, sodium 137 potassium 3.6 chloride 112, BUN 8 and creatinine 0.81 08/04/2020 Patient is seen and evaluated in follow-up continues to be closely monitored in the ICU. Multiple medical consultations following including pulmonary, tile roofer, and infectious disease. she is maintained on IV antibiotics in the form of vancomycin and will continue at this time. Patient is tachypneic and tachycardic on exam. patient is currently maintained on 2 L of oxygen via nasal cannula. she denies worsening shortness of breath, chest pain, or palpitations. chest x-ray today shows bilateral pleural effusions with some loculation on the right with possible pneumonia/edema. Patient awaiting computed tomography scan of the chest. Possibility of transferring to tertiary care center and case management is working on the transfer process. blood cultures continue to be positive and infectious disease is following and repeating daily blood cultures to monitor for clearance of bacteremia.Cardiothoracic surgery along with cardiology following. white blood count today is 12.8, hemoglobin is 7.0, sodium is 135, potassium is 3.9, current creatinine is 0.9. CRP trending up and currently 175.3. On exam vital signs are stable. Cardio S1, S2 are muffled. Respiratory system shows diminished breath sounds at the bases with some scattered rhonchi noted. Abdomen is soft and nontender. Nervous system shows diffuse weakness. Review of systems: Constitutional: Reports fatigue, no reports of fever, or chills Cardiovascular: No reports of chest pain or palpitations Respiratory: reports intermittent shortness of breath and productive cough GI: No reports of nausea, vomiting, or diarrhea : No reports of dysuria or retention Neurovascular: reports of weakness All medications have been reviewed Active Medications Acetaminophen (Acetaminophen Tab 325 Mg Tab) 650 mg PO Q6HR PRN PRN Reason: Mild Pain or Fever > 100.5 Last Admin: 08/03/20 02:51 Dose: 650 mg Documented by: Hydromorphone HCl (Hydromorphone 1 Mg/Ml 1 Ml Syringe) 1 mg IVP Q2H PRN PRN Reason: Severe Pain Last Admin: 08/04/20 09:25 Dose: 1 mg Documented by: Sodium Chloride (Saline 0.9%) 1,000 mls @ 130 mls/hr IV .Q7H42M [facility] Last Admin: 08/04/20 07:00 Dose: 130 mls/hr Documented by: Vancomycin HCl 1,500 mg/ (Sodium Chloride) 250 mls @ 125 mls/hr IVPB Q12H [facility] Last Admin: 08/04/20 03:13 Dose: 125 mls/hr Documented by: Lorazepam (Lorazepam 2 Mg/Ml Inj) 1 mg IV Q4HR PRN PRN Reason: Anxiety Last Admin: 08/04/20 10:16 Dose: 1 mg Documented by: Miscellaneous Information (Potassium Replacement Protocol 1 Each Misc) 1 each MISCELLANE DAILY PRN; Protocol PRN Reason: Per Protocol Miscellaneous Information (Vancomycin Trough Due 1 Each Misc) 0 each MISCELLANE DIRECTED ONE Stop: 08/05/20 13:01 Naloxone HCl (Naloxone 0.4 Mg/Ml 1 Ml Vial) 0.2 mg IV Q2M PRN PRN Reason: Opioid Reversal Ondansetron HCl (Ondansetron 4 Mg/2 Ml Vial) 4 mg IVP Q8HR PRN PRN Reason: Nausea And Vomiting Pantoprazole Sodium (Pantoprazole 40 Mg/10 Ml Vial) 40 mg IVP DAILY [facility] Last Admin: 08/04/20 09:26 Dose: 40 mg Documented by: On exam vital signs are stable. Cardio S1, S2 are muffled. Respiratory system shows diminished breath sounds at the bases with some scattered rhonchi noted. Abdomen is soft and nontender. Nervous system shows diffuse weakness. Please refer to medication reconciliation sheet for a list of medications. Patient Condition at Discharge: Serious Plan - Discharge Summary New Discharge Prescriptions: No Action Buprenorphine HCl/Naloxone HCl [Zubsolv 5.7-1.4 mg Tablet Sl] 1 film SL BID Discharge Medication List Buprenorphine HCl/Naloxone HCl [Zubsolv 5.7-1.4 mg Tablet Sl] 1 film SL BID 07/30/20 [History] Follow up Appointment(s)/Referral(s): Wilian Sidhu DO [Primary Care Provider] - 1-2 days
[2020-08-04 16:33] VITALS: BP 142/100; PULSE 111; RESP 44
[2020-08-05] MEDS ORDERED: VANCOMYCIN TROUGH DUE 1 EACH MISC MISCELLANE ONE (13:00)
--- NOTE | 2020-08-05 22:58 | P.PN ---
Progress Note - Text Progress Note Date: 08/04/20 REASON FOR FOLLOWUP: MRSA tricuspid valve endocarditis. INTERVAL HISTORY: The patient is afebrile. She is breathing comfortably. The pt denies having chest pain , did have mild dry cough. No abdominal pain and no diarrhea. PHYSICAL EXAMINATION: Blood pressure 130/70, pulse of 90, temperature 98.1. She is 91% on room air. General description is a middle-aged female lying in bed in no distress. RESPIRATORY SYSTEM: Unlabored breathing with decreased breath sounds at the base. No wheeze. HEART: S1, S2. Regular rate and rhythm. ABDOMEN: Soft. No tenderness. LABS: CT with worsening cavitation. Vancomycin trough 27.3. Blood culture repeat 08/01/20 still positive. 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 pt covered with vancomycin , with possible transfer to [facility] because of worsening Ct findings , prognosis guarded
== END 2020-08-04 16:34 | disposition short-term general hospital (02) | DRG 871 ==
LOC: EC 00:44 → 3SCARD 03:46 → 2SICU 06:20
PROVIDERS: ADMIT Hospitalist; ATTEND Hospitalist
PROC: 02H633Z Insertion of Infusion Device into Right Atrium, Percutaneous Approach (ICD-10-PCS; principal; 2020-07-30)
PROC: 3E033XZ Introduction of Vasopressor into Peripheral Vein, Percutaneous Approach (ICD-10-PCS; 2020-07-30)
PROC: B24BZZ4 Ultrasonography of Heart with Aorta, Transesophageal (ICD-10-PCS; 2020-08-01)
DX: A41.02 Sepsis due to Methicillin resistant Staphylococcus aureus (principal); I26.90 Septic pulmonary embolism without acute cor pulmonale; R65.21 Severe sepsis with septic shock; I33.0 Acute and subacute infective endocarditis; J18.8 Other pneumonia, unspecified organism; N17.9 Acute kidney failure, unspecified; J90 Pleural effusion, not elsewhere classified; N39.0 Urinary tract infection, site not specified; B19.10 Unspecified viral hepatitis B without hepatic coma; I27.29 Other secondary pulmonary hypertension; D69.59 Other secondary thrombocytopenia; F11.10 Opioid abuse, uncomplicated; F90.9 Attention-deficit hyperactivity disorder, unspecified type; F31.9 Bipolar disorder, unspecified; Z20.822 Contact with and (suspected) exposure to COVID-19; G43.909 Migraine, unspecified, not intractable, without status migrainosus; F17.200 Nicotine dependence, unspecified, uncomplicated; F41.9 Anxiety disorder, unspecified; E66.9 Obesity, unspecified; E86.0 Dehydration; B19.20 Unspecified viral hepatitis C without hepatic coma; I07.1 Rheumatic tricuspid insufficiency; K80.20 Calculus of gallbladder without cholecystitis without obstruction; K59.00 Constipation, unspecified; R06.82 Tachypnea, not elsewhere classified; Z71.6 Tobacco abuse counseling; Z68.33 Body mass index [BMI] 33.0-33.9, adult; Z79.899 Other long term (current) drug therapy; Z82.49 Family history of ischemic heart disease and other diseases of the circulatory system
CPT/HCPCS: 36415; 71045; 71250; 71275; 76705; 80048; 80053; 80074; 80202; 81001; 81025; 82150; 83605; 83690; 83735; 84145; 84484; 85025; 85610; 85730; 86140; 86706; 86803; 87040; 87077; 87086; 87186; 87535; 87635; 93005; 93306; 93312; 93320; 93325; 96361; 96365; 96366; 96367; 96368; 96375; 96376; 99291

== ENCOUNTER 2021-12-15 15:34 | Inpatient (IN) | payer OTHER ==
[2021-12-15] MEDS ORDERED: ACETAMINOPHEN TAB 325 MG TAB PO PRN (15:56)
[2021-12-15] MEDS ORDERED: HYDROCORTISONE 2.5% RECTAL CREAM 30 GM TUBE RECTAL PRN (15:56)
[2021-12-15] MEDS ORDERED: ZOLPIDEM 5 MG TAB PO PRN (15:56)
[2021-12-15] MEDS ORDERED: diphenhydrAMINE 25 MG CAP PO PRN (15:56)
[2021-12-15] MEDS ORDERED: diphenhydrAMINE 50 MG/ML 1 ML VIAL IVP PRN ×2 (15:56)
[2021-12-15] MEDS ORDERED: SIMETHICONE 80 MG CHEWABLE PO PRN (15:56)
[2021-12-15] MEDS ORDERED: diphenhydrAMINE 50 MG CAP PO PRN (15:56)
[2021-12-15] MEDS ORDERED: BENZOCAINE/MENTHOL SPRAY 1 GM/SPRAY AEROSOL TOPICAL PRN (15:56)
[2021-12-15] MEDS ORDERED: LANOLIN CREAM 5 GM TUBE TOPICAL PRN (15:56)
[2021-12-15] MEDS: IBUPROFEN 600 MG TAB PO PRN (16:37)
--- NOTE | 2021-12-15 16:43 | P.HPOB ---
History of Present Illness H&P Date: 12/15/21 Chief Complaint: S/P NVD 31 year old presents after a Normal vaginal delivery at home at 1503 with EMS. She had care with Dr Lares until a few weeks ago. She has a history of drug use and lost custody of her other children. Review of Systems All systems: negative Constitutional: Denies chills, Denies fever Eyes: denies blurred vision, denies pain Ears, nose, mouth and throat: Denies headache, Denies sore throat Cardiovascular: Denies chest pain, Denies shortness of breath Respiratory: Denies cough Gastrointestinal: Denies abdominal pain, Denies diarrhea, Denies nausea, Denies vomiting Genitourinary: Denies dysuria, Denies hematuria Musculoskeletal: Denies myalgias Integumentary: Denies pruritus, Denies rash Neurological: Denies numbness, Denies weakness Psychiatric: Denies anxiety, Denies depression Endocrine: Denies fatigue, Denies weight change Past Medical History Past Medical History: No Reported History Additional Past Medical History / Comment(s): post depression, Endocarditis History of Any Multi-Drug Resistant Organisms: MRSA Date of last positivie culture/infection: 08/01/20 MDRO Source:: Blood Past Surgical History: No Surgical Hx Reported Additional Past Surgical History / Comment(s): Colposcopy Past Anesthesia/Blood Transfusion Reactions: No Reported Reaction Past Psychological History: ADD/ADHD, Anxiety, Bipolar, Depression Smoking Status: Current every day smoker Past Alcohol Use History: None Reported Past Drug Use History: Heroin, IV Drug Use, Marijuana Additional Drug Use History / Comment(s): Patient states the last time she used Meth was "Months ago." Patient states she took a couple suboxone "maybe like a month ago" Patient states she smokes THC "every once in a while" and smokes 1/2ppd. - Past Family History Mother Additional Family Medical History / Comment(s): She reports family history of heart disease on her mother's side. Father Additional Family Medical History / Comment(s): She reports that her father had a problem with high sodium levels. Medications and Allergies Allergies Allergy/AdvReac Type Severity Reaction Status Date / Time No Known Allergies Allergy Verified 12/15/21 15:47 Exam Osteopathic Statement: *. No significant issues noted on an osteopathic structural exam other than those noted in the History and Physical/Consult. Vital Signs Temp Pulse Resp BP 12/15/21 16:20 76 16 148/83 12/15/21 16:05 59 L 16 138/73 12/15/21 15:50 57 L 16 153/67 12/15/21 15:46 97.0 F L 66 16 137/84 12/15/21 15:35 97.2 F L 66 16 137/84 Intake and Output 12/15/21 12/15/21 12/15/21 06:59 14:59 22:59 Other: Weight 72.575 kg Heart: Regular rate and rhythm Lungs: Clear to auscultation bilaterally Abdomen: Soft, nontender Extremities: Negative Homans sign Assessment and Plan (1) Status post normal vaginal delivery Current Visit: No Status: Acute Code(s): [id number] - SNOMED Code(s): 380550746 Plan: 1. pp care
[2021-12-15 17:46] LABS: Uric Acid 7.8 mg/dL (3.7-7.4)
[2021-12-15 19:34] LABS: Creatinine,Urine Random 223.6 mg/dL; Protein/Creatinine Ratio,Urine 0.134
[2021-12-15 20:04] LABS: Appearance,Urine Clear (Clear); Bilirubin,Urine Negative (Negative); Blood,Urine Large (Negative); Color,Urine Yellow; Glucose,Urine (UA) Negative (Negative); Ketones,Urine Negative (Negative); Leukocyte Esterase,Urine Moderate (Negative); Mucus,Urine Few /hpf; Nitrite,Urine Negative (Negative); Protein,Urine 1+ (Negative); RBC,Urine 97 /hpf (0-5); Specific Gravity,Urine 1.021 (1.001-1.035); Squamous Epithelial Cell,Urine 1 /hpf (0-4); Urobilinogen,Urine <2.0 mg/dL (<2.0); WBC,Urine 4 /hpf (0-5)
[2021-12-15] MEDS: SENNOSIDES-DOCUSATE SODIUM 1 EACH TAB PO SCH (20:21)
[2021-12-15 20:35] LABS: Amphetamine Screen,Urine Detected (NotDetected); Barbiturate Screen,Urine Not Detected (NotDetected); Benzodiazepines Screen,Urine Not Detected (NotDetected); Cocaine Screen,Urine Not Detected (NotDetected); Methadone Screen, Urine Not Detected (NotDetected); Opiate Screen,Urine Not Detected (NotDetected); Oxycodone Screen, Urine Not Detected (NotDetected); Phencyclidine Screen,Urine Not Detected (NotDetected); Tricyclic Antidepressant,Urine Not Detected (NotDetected); Urn Cannabinoid Scrn Detected (NotDetected)
[2021-12-15 20:40] LABS: Basophils # (A) 0.1 k/uL (0-0.2); Basophils % (A) 1 %; Eosinophils # (A) 0.1 k/uL (0-0.7); Eosinophils % (A) 0 %; HCT 29.6 % (34.0-46.0); HGB 9.6 gm/dL (11.4-16.0); Hypochromasia Moderate; Lymphocytes % (A) 9 %; MCH 27.7 pg (25.0-35.0); MCHC 32.2 g/dL (31.0-37.0); MCV 85.9 fL (80.0-100.0); Mean Platelet Volume 10.6; Monocytes # (A) 0.5 k/uL (0-1.0); Monocytes % (A) 5 %; Neutrophils # (A) 9.1 k/uL (1.3-7.7); Neutrophils % (A) 85 %; Platelet Count 238 k/uL (150-450); Poikilocytosis Slight; RBC 3.45 m/uL (3.80-5.40); RDW 15.8 % (11.5-15.5); WBC 10.7 k/uL (3.8-10.6)
[2021-12-15] MEDS ORDERED: NALOXONE 0.4 MG/ML 1 ML VIAL IM STA (20:47)
[2021-12-15] MEDS ORDERED: NALOXONE 0.4 MG/ML 1 ML VIAL IM PRN (20:47)
[2021-12-15 22:35] LABS: Hepatitis B Surface Antigen Nonreactive (Nonreactive)
[2021-12-16] MEDS: IBUPROFEN 600 MG TAB PO PRN ×2 (00:52→06:25)
[2021-12-16 04:04] LABS: HIV 2 AB Non-Reactive (Non-Reactive); HIV AB P24 Non-Reactive (Non-Reactive); HIV P24 AG Non-Reactive (Non-Reactive)
--- NOTE | 2021-12-16 07:52 | P.DS ---
Providers Date of admission: 12/15/21 15:34 Expected date of discharge: 12/16/21 Attending physician: Veronica Dacosta Primary care physician: Stated None - Discharge Diagnosis(es) (1) Status post normal vaginal delivery Current Visit: No Status: Acute Hospital Course: 31-year-old presented status post normal vaginal delivery at home. Her UDS was positive for methamphetamines and THC. She has a history of heroin use as well. She says she did get care with Dr. Lares with this . Her course has been uncomplicated. She denies nausea, vomiting, chest pain, shortness of breath or any calf pain. Her lochia is minimal. She will be discharged home day #1 in stable condition to follow-up with me in 2 weeks. Plan - Discharge Summary New Discharge Prescriptions: New Ibuprofen [Motrin] 600 mg PO Q6HR PRN #30 tab PRN Reason: Mild Pain (Scale 1 To 3) Discharge Medication List Ibuprofen [Motrin] 600 mg PO Q6HR PRN #30 tab 12/16/21 [Rx] Follow up Appointment(s)/Referral(s): Veronica Dacosta DO [Doctor of Osteopathic Medicine] - 2 Weeks Discharge Disposition: HOME SELF-CARE
[2021-12-16 08:06] LABS: Anisocytosis Slight; Basophils % (A) 0 %; Eosinophils % (A) 0 %; HCT 26.8 % (34.0-46.0); HGB 8.7 gm/dL (11.4-16.0); Hypochromasia Moderate; Lymphocytes # (A) 1.7 k/uL (1.0-4.8); Lymphocytes % (A) 17 %; MCH 27.8 pg (25.0-35.0); MCHC 32.4 g/dL (31.0-37.0); MCV 85.7 fL (80.0-100.0); Mean Platelet Volume 10.9; Monocytes # (A) 0.5 k/uL (0-1.0); Monocytes % (A) 5 %; Neutrophils # (A) 7.4 k/uL (1.3-7.7); Neutrophils % (A) 76 %; Platelet Count 211 k/uL (150-450); Poikilocytosis Slight; RBC 3.13 m/uL (3.80-5.40); RDW 16.1 % (11.5-15.5); WBC 9.7 k/uL (3.8-10.6)
[2021-12-16 08:21] VITALS: BP 139/89; PULSE 67; RESP 16; TEMP 97.7
[2021-12-16] MEDS: SENNOSIDES-DOCUSATE SODIUM 1 EACH TAB PO SCH (12:42)
== END 2021-12-16 14:00 | disposition home or self-care (01) | DRG 776 ==
LOC: 4FBP 15:34
PROVIDERS: ADMIT Obstetrics & Gynecology; ATTEND Obstetrics & Gynecology
DX: Z39.0 Encounter for care and examination of mother immediately after delivery (principal); O99.325 Drug use complicating the puerperium; O99.335 Smoking (tobacco) complicating the puerperium; O99.345 Other mental disorders complicating the puerperium; F90.9 Attention-deficit hyperactivity disorder, unspecified type; F41.9 Anxiety disorder, unspecified; F31.9 Bipolar disorder, unspecified; F15.90 Other stimulant use, unspecified, uncomplicated; F12.90 Cannabis use, unspecified, uncomplicated; Z86.79 Personal history of other diseases of the circulatory system; Z86.14 Personal history of Methicillin resistant Staphylococcus aureus infection
CPT/HCPCS: 80306; 81001; 82565; 82570; 82947; 83615; 84156; 84450; 84460; 84520; 84550; 85025; 86762; 86780; 86850; 86900; 86901; 87340; 87390

== ENCOUNTER 2022-01-06 12:44 | Emergency (ER) | payer OTHER ==
[2022-01-06 12:53] VITALS: RESP 16; TEMP 98.4
--- NOTE | 2022-01-06 13:09 | ED ---
General Adult HPI - General Chief complaint: OB/Uterine Contractions Stated complaint: Post OB issues Time Seen by Provider: 01/06/22 12:52 Source: patient, EMS Mode of arrival: EMS Limitations: no limitations - History of Present Illness Initial comments: Dictation was produced using Simple[employer] dictation software. please excuse any grammatical, word or spelling errors. Chief Complaint: 31-year-old female presents to the emergency department as a transfer from [facility] for concerns of preeclampsia History of Present Illness: 31-year-old female gentleman 24th of this year patient had any at-home delivery. She did not received routine care or establish care with corrugator operator for the whole . She delivered in the bathroom. After she delivered at home she was admitted to the hospital for a few days. Patient is . Over the last couple days patient has been having migraines and lower back pain. She initially presented to [facility] were ultrasound was performed that was not able to rule out retained products. She also had a migraine. Patient reports that she's been told that she is got chr onic hypertension and should be on long-term hypertensive medications. Patient has heroin and methamphetamine use history. I [facility] patient had blood work and imaging done. Sodium 133, potassium 3.2, chloride 98, bicarb of 25.4, BUN of 19.0, creatinine 1.0. Calcium of 8.5., LDH of 271, magnesium 1.71, lipase of 31. Urinalysis shows greater than 20 red blood cells and greater than 25 white blood cells. CBC shows leukocytosis of 16.8, hemoglobin of 7.6. There does appear to be microcytic anemia. Ultrasound shows thickened endometrium and retained products of conception cannot be excluded. Patient was given IV fluids, Toradol, morphine, Zofran, 10 mg of hydralazine. Patient also given gentamicin and clindamycin. Patient had transfer vitals of 97.1, heart rate of 80, respiratory rate of 16, blood pressure 123/80. Her initial blood pressure was 186/94. The ROS documented in this emergency department record has been reviewed and confirmed by me. Those systems with pertinent positive or negative responses have been documented in the HPI. All other systems are other negative and/or noncontributory. PHYSICAL EXAM: General Impression: Alert and oriented x3, not in acute distress HEENT: Normocephalic atraumatic, extra-ocular movements intact, pupils equal and reactive to light bilaterally, mucous membranes moist. Cardiovascular: Heart regular rate and rhythm Chest: Able to complete full sentences, no retractions, no tachypnea Abdomen: abdomen soft, non-tender, non-distended, no organomegaly Musculoskeletal: Pulses present and equal in all extremities, no peripheral edema Motor: no focal deficits noted Neurological: CN II-XII grossly intact, no focal motor or sensory deficits noted Skin: Intact with no visualized rashes Psych: Normal affect and mood ED course: 31-year-old well-appearing female transferred from [facility] for concerns of preeclampsia. She initially presented to [facility] for headache and lower back pain. She had a initial blood pressure 186/94. Liver enzymes did not suggest liver disease. LDH is slightly elevated at 271. Uric acid level is normal. Renal markers are normal. CBC does not show any homicidal anemia. Urinalysis does show 1+ proteinuria. Patient is asymptomatic at the bedside. Blood pressure upon arrival is 130/87. Patient has any headache at this time. States her abdominal pain is significantly improved. Case is discussed in detail with Dr. Praneeth billings for the patient here on December 15. Dr. Dacosta does not feel that patient's clinical presentation is consistent with preeclampsia. Dr. Dacosta recommends that patient follow-up in the office on Saturday. Patient was still very sleepy and was observed in the emergency department for approximately 5 hours. Patient was reevaluated bedside at 5:30 PM. Patient attempt was made to obtain another urine specimen for the patient. Patient did not want to provide a urine specimen and continued to sleep. She is given the option by the nurse for straight catheter to get up or provide a urine sample. She became aggressive and stated that she wants to leave. Patient's well- appearing. Patient continues to report having a slight headache however states that it's much better after analgesia. Patient is very sleepy at the bedside. Patient told that her visitation could still be early preeclampsia given that she has elevated blood pressure and reported headache still despite being well- appearing. She does report having had been diagnosed with hypertension by a primary care physician past however she has not followed up to be started on antihypertensive medications. It is explained to patient that I would like to monitor her a little further however she refused and decided to leave AGAINST MEDICAL ADVICE. Risk and benefits were discussed. - Related Data Home Medications Medication Instructions Recorded Confirmed No Known Home Medications 01/06/22 01/06/22 Allergies Allergy/AdvReac Type Severity Reaction Status Date / Time No Known Allergies Allergy Verified 12/15/21 15:47 Review of Systems ROS Statement: Those systems with pertinent positive or pertinent negative responses have been documented in the HPI. ROS Other: All systems not noted in ROS Statement are negative. Past Medical History Past Medical History: No Reported History Additional Past Medical History / Comment(s): post depression, Endocarditis History of Any Multi-Drug Resistant Organisms: MRSA Date of last positivie culture/infection: 08/01/20 MDRO Source:: Blood Past Surgical History: No Surgical Hx Reported Additional Past Surgical History / Comment(s): Colposcopy Past Anesthesia/Blood Transfusion Reactions: No Reported Reaction Past Psychological History: ADD/ADHD, Anxiety, Bipolar, Depression Smoking Status: Current every day smoker Past Alcohol Use History: None Reported Past Drug Use History: Heroin, IV Drug Use, Marijuana - Past Family History Mother Additional Family Medical History / Comment(s): She reports family history of heart disease on her mother's side. Father Additional Family Medical History / Comment(s): She reports that her father had a problem with high sodium levels. General Exam Limitations: no limitations Course Vital Signs 01/06/22 01/06/22 01/06/22 12:49 13:58 15:39 Temperature 98.4 F Pulse Rate 71 72 Respiratory 16 16 Rate Blood Pressure 130/87 156/101 159/105 O2 Sat by Pulse 99 99 Oximetry Disposition Clinical Impression: Hypertension Disposition: Left Against Medical Advice Condition: Stable Instructions (If sedation given, give patient instructions): Hypertension (ED) Is patient prescribed a controlled substance at d/c from ED?: No Referrals: Veronica Dacosta DO [Doctor of Osteopathic Medicine] - 01/09/22 Time of Disposition: 17:52
[2022-01-06] MEDS ORDERED: diphenhydrAMINE 50 MG/ML 1 ML VIAL IVP STA (13:38)
[2022-01-06] MEDS ORDERED: SODIUM CHLORIDE 0.9% 1,000 ML IV STA (13:38)
[2022-01-06] MEDS ORDERED: ONDANSETRON 4 MG/2 ML VIAL IVP STA (13:38)
[2022-01-06 14:00] VITALS: PULSE 72
[2022-01-06 15:40] VITALS: BP 159/105
== END 2022-01-06 17:49 | disposition left against medical advice (07) ==
LOC: EC 12:44
DX: I10 Essential (primary) hypertension (principal); F17.200 Nicotine dependence, unspecified, uncomplicated
CPT/HCPCS: 96374; 96375; 96361; 99285; J1200; J2405; 99284

== ENCOUNTER 2022-03-16 13:31 | Emergency (ER) | payer OTHER ==
--- NOTE | 2022-03-16 13:45 | ED ---
General Adult HPI - General Stated complaint: Overdose Time Seen by Provider: 03/16/22 13:40 Source: patient, RN notes reviewed, old records reviewed - History of Present Illness Initial comments: This is a 32-year-old female presents emergency department stating that she did a little bit of heroin today. Patient states she snorted heroin and that all she remembers. According to EMS when got there she was not blue but she was agonal breathing and they gave her 2 of Narcan nasally and she woke up almost immediately. Patient currently has no complaints and does not want any workup done she did consent to giving us a urine and getting a chest x-ray. Patient denies any chest pain or difficulty breathing. Patient denies any lightheadedness or dizziness. Patient denies abdominal pain. Patient states it was only heroin as far she knows. Patient denies any vomiting or nausea or diarrhea. - Related Data Home Medications Medication Instructions Recorded Confirmed No Known Home Medications 01/06/22 03/16/22 Allergies Allergy/AdvReac Type Severity Reaction Status Date / Time No Known Allergies Allergy Verified 03/16/22 14:38 Review of Systems ROS Statement: Those systems with pertinent positive or pertinent negative responses have been documented in the HPI. ROS Other: All systems not noted in ROS Statement are negative. Past Medical History Past Medical History: No Reported History Additional Past Medical History / Comment(s): post depression, Endocarditis History of Any Multi-Drug Resistant Organisms: MRSA Date of last positivie culture/infection: 08/01/20 MDRO Source:: Blood Past Surgical History: No Surgical Hx Reported Additional Past Surgical History / Comment(s): Colposcopy Past Anesthesia/Blood Transfusion Reactions: No Reported Reaction Past Psychological History: ADD/ADHD, Anxiety, Bipolar, Depression Smoking Status: Current every day smoker Past Alcohol Use History: None Reported Past Drug Use History: Heroin, IV Drug Use, Marijuana - Past Family History Mother Additional Family Medical History / Comment(s): She reports family history of heart disease on her mother's side. Father Additional Family Medical History / Comment(s): She reports that her father had a problem with high sodium levels. General Exam - General Exam Comments Initial Comments: GENERAL: Patient is well-developed and well-nourished. Patient is nontoxic and well- hydrated and is in no acute distress. ENT: Neck is soft and supple. No significant lymphadenopathy is noted. Oropharynx is clear. Moist mucous membranes. Neck has full range of motion without eliciting any pain. EYES: The sclera were anicteric and conjunctiva were pink and moist. Extraocular movements were intact and pupils were equal round and reactive to light. Eyelids were unremarkable. PULMONARY: Unlabored respirations. Good breath sounds bilaterally. No audible rales rhonchi or wheezing was noted. CARDIOVASCULAR: There is a regular rate and rhythm without any murmurs gallops or rubs. ABDOMEN: Soft and nontender with normal bowel sounds. SKIN: Skin is clear with no lesions or rashes and otherwise unremarkable. NEUROLOGIC: Patient is alert and oriented x3. Cranial nerves II through XII are grossly intact. Motor and sensory are also intact. Normal speech, volume and content. Symmetrical smile. MUSCULOSKELETAL: Normal extremities with adequate strength and full range of motion. LYMPHATICS: No significant lymphadenopathy is noted PSYCHIATRIC: Normal psychiatric evaluation. Course Vital Signs 03/16/22 13:38 Temperature 97.6 F Pulse Rate 96 Respiratory 20 Rate Blood Pressure 140/93 O2 Sat by Pulse 98 Oximetry Medical Decision Making - Medical Decision Making Chest xray shows no acute abnormality. I went back and reevaluate the patient she no longer wanted to stay and she was alert and oriented 4 - Lab Data Lab Results 03/16/22 Range/Units 13:50 Urine Opiates Screen Not Detected (NotDetected) Ur Oxycodone Screen Not Detected (NotDetected) Urine Methadone Screen Not Detected (NotDetected) Ur Propoxyphene Screen Not Detected (NotDetected) Ur Barbiturates Screen Not Detected (NotDetected) U Tricyclic Antidepress Not Detected (NotDetected) Ur Phencyclidine Scrn Not Detected (NotDetected) Ur Amphetamines Screen Detected H (NotDetected) U Methamphetamines Scrn Detected H (NotDetected) U Benzodiazepines Scrn Detected H (NotDetected) Urine Cocaine Screen Not Detected (NotDetected) U Marijuana (THC) Screen Not Detected (NotDetected) Disposition Clinical Impression: Accidental drug overdose, Heroin abuse Disposition: HOME SELF-CARE Instructions (If sedation given, give patient instructions): Adult Overdose (ED) Is patient prescribed a controlled substance at d/c from ED?: No Referrals: None,Stated [Primary Care Provider] - 1-2 days Time of Disposition: 14:57
--- NOTE | 2022-03-16 14:33 | XR ---
EXAMINATION TYPE: XR chest 2V DATE OF EXAM: 03/16/2022 COMPARISON: Chest x-ray 08/04/2020 HISTORY: Difficulty breathing TECHNIQUE: Frontal and lateral views of the chest are obtained. FINDINGS: There has been interval near complete resolution of the abnormal densities within the lung s. There is no evident pneumothorax or pleural effusion. Cardiac mediastinal silhouette is within nor mal limits. Bone mineralization is normal. IMPRESSION: No acute cardiopulmonary disease.
[2022-03-16 14:47] LABS: Amphetamine Screen,Urine Detected (NotDetected); Barbiturate Screen,Urine Not Detected (NotDetected); Benzodiazepines Screen,Urine Detected (NotDetected); Cocaine Screen,Urine Not Detected (NotDetected); Methadone Screen, Urine Not Detected (NotDetected); Opiate Screen,Urine Not Detected (NotDetected); Oxycodone Screen, Urine Not Detected (NotDetected); Phencyclidine Screen,Urine Not Detected (NotDetected); Tricyclic Antidepressant,Urine Not Detected (NotDetected); Urn Cannabinoid Scrn Not Detected (NotDetected)
[2022-03-16 15:14] VITALS: BP 136/87; PULSE 99; RESP 18; TEMP 98.6
== END 2022-03-16 15:09 | disposition home or self-care (01) ==
LOC: EC 13:31
DX: T40.1X1A Poisoning by heroin, accidental (unintentional), initial encounter (principal); F11.10 Opioid abuse, uncomplicated; F15.90 Other stimulant use, unspecified, uncomplicated; F13.90 Sedative, hypnotic, or anxiolytic use, unspecified, uncomplicated; F17.200 Nicotine dependence, unspecified, uncomplicated
CPT/HCPCS: 71046; 80306; 99284

== ENCOUNTER 2022-07-03 04:25 | Emergency (ER) | payer OTHER ==
[2022-07-03 04:37] VITALS: TEMP 98.4
--- NOTE | 2022-07-03 05:48 | ED ---
General Adult HPI - General Chief complaint: Overdose Stated complaint: Overdose Time Seen by Provider: 07/03/22 04:26 Source: patient, EMS Mode of arrival: EMS Limitations: no limitations - History of Present Illness Initial comments: This is a 31-year-old female who presents emergency department via EMS for a heroin overdose. Is reported the patient was [place] and she did require 8 mg of Narcan to bring her back per EMS. On arrival, the patient did confirm this and was resting in bed comfortably. The patient denied any acute p ain or distress. The patient denied any fevers, chills as well as any nausea and vomiting. - Related Data Previous Rx's Medication Instructions Recorded Naloxone HCl 0.4 mg INTRANASAL ONCE #1 each 07/03/22 Allergies Allergy/AdvReac Type Severity Reaction Status Date / Time No Known Allergies Allergy Verified 03/16/22 14:38 Review of Systems ROS Statement: Those systems with pertinent positive or pertinent negative responses have been documented in the HPI. ROS Other: All systems not noted in ROS Statement are negative. Past Medical History Past Medical History: No Reported History Additional Past Medical History / Comment(s): post depression, Endocarditis History of Any Multi-Drug Resistant Organisms: MRSA Date of last positivie culture/infection: 08/01/20 MDRO Source:: Blood Past Surgical History: No Surgical Hx Reported Additional Past Surgical History / Comment(s): Colposcopy Past Anesthesia/Blood Transfusion Reactions: No Reported Reaction Past Psychological History: ADD/ADHD, Anxiety, Bipolar, Depression Smoking Status: Current every day smoker Past Alcohol Use History: None Reported Past Drug Use History: Heroin, IV Drug Use, Marijuana - Past Family History Mother Additional Family Medical History / Comment(s): She reports family history of heart disease on her mother's side. Father Additional Family Medical History / Comment(s): She reports that her father had a problem with high sodium levels. General Exam Limitations: no limitations General appearance: alert, in no apparent distress Head exam: Present: atraumatic, normocephalic, normal inspection Eye exam: Present: normal appearance, PERRL Pupils: Present: normal accommodation ENT exam: Present: normal exam, normal oropharynx, mucous membranes moist Neck exam: Present: normal inspection, full ROM Respiratory exam: Present: normal lung sounds bilaterally Cardiovascular Exam: Present: regular rate, normal rhythm, normal heart sounds GI/Abdominal exam: Present: soft, normal bowel sounds Extremities exam: Present: normal inspection, full ROM Back exam: Present: normal inspection, full ROM Neurological exam: Present: alert, oriented X3, CN II-XII intact Psychiatric exam: Present: normal affect, normal mood Skin exam: Present: warm, dry Course Vital Signs 07/03/22 07/03/22 07/03/22 04:34 04:40 04:46 Temperature 98.4 F Pulse Rate 108 H 93 Respiratory 20 Rate Blood Pressure 134/52 114/93 O2 Sat by Pulse 97 Oximetry Medical Decision Making - Medical Decision Making Was pt. sent in by a medical professional or institution (, PA, [employer], urgent care, hospital, or assisted...) When possible be specific @ -No Did you speak to anyone other than the patient for history (EMS, parent, family, police, friend...)? What history was obtained from this source @ -Yes, EMS Did you review nursing and triage notes (agree or disagree)? Why? @ -I reviewed and agree with nursing and triage notes Were old charts reviewed (outside hosp., previous admission, EMS record, old EKG, old radiological studies, urgent care reports/EKG's, assisted records)? Report findings @ -No old charts were reviewed Differential Diagnosis (chest pain, altered mental status, abdominal pain women, abdominal pain men, vaginal bleeding, weakness, fever, dyspnea, syncope, headache, dizziness, GI bleed, back pain, seizure, CVA, palpatations, mental health)? @ -Acute drug overdose EKG interpreted by me (3pts min.). @ -None X-rays interpreted by me (1pt min.). @ -None done CT interpreted by me (1pt min.). @ -None done U/S interpreted by me (1pt. min.). @ -None done What testing was considered but not performed or refused? (CT, X-rays, U/S, labs)? Why? @ -None What meds were considered but not given or refused? Why? @ -None Did you discuss the management of the patient with other professionals (professionals i.e. , PA, [employer], lab, RT, psych nurse, social media sr strategy manager, carbon brushes assembler, teacher, public safety officer, outpatient case manager)? Give summary @ -No Was smoking cessation discussed for >3mins.? @ -Yes Was critical care preformed (if so, how long)? @ -No Were there social determinants of health that impacted care today? How? (Homelessness, low income, unemployed, alcoholism, drug addiction, transportation, low edu. Level, literacy, decrease access to med. care, long term, rehab)? @ -No Was there de-escalation of care discussed even if they declined (Discuss DNR or withdrawal of care, Hospice)? DNR status @ -No What co-morbidities impacted this encounter? (DM, HTN, Smoking, COPD, CAD, Cancer, CVA, ARF, Chemo, Hep., AIDS, mental health diagnosis, sleep apnea, morbid obesity)? @ -Substance abuse Was patient admitted / discharged? Hospital course, mention meds given and route , prescriptions, significant lab abnormalities, going to OR and other pertinent info. @ -The patient was seen and evaluated emergency department. Physical exam, the patient was resting in bed without any acute distress. The patient remained stable and did not require any further laboratory workup or imaging at this time. The patient will be closely monitored observed and will be discharged back home at 7:30. The patient does require any further Narcan she will be given a second dose and will continue to be monitored observed for several hours after this. A prescription for Narcan was also sent to the pharmacy. The patient remained stable and was discharged home in stable condition. Undiagnosed new problem with uncertain prognosis? @ -No Drug Therapy requiring intensive monitoring for toxicity (Heparin, Nitro, Insulin, Cardizem)? @ -No Were any procedures done? @ -No Diagnosis/symptom? @ -Opiate Overdose Acute, or Chronic, or Acute on Chronic? @ -Acute Uncomplicated (without systemic symptoms) or Complicated (systemic symptoms)? @ -Uncomplicated Side effects of treatment? @ -No Exacerbation, Progression, or Severe Exacerbation? @ -No Poses a threat to life or bodily function? How? (Chest pain, [place], [place], pneumonia, PE, COPD, DKA, ARF, appy, cholecystitis, CVA, Diverticulitis, Homicidal, Suicidal, threat to staff... and all critical care pts) @ -No Disposition Clinical Impression: Heroin overdose Disposition: HOME SELF-CARE Condition: Stable Instructions (If sedation given, give patient instructions): Adult Overdose (ED) Prescriptions: Naloxone HCl 0.4 mg INTRANASAL ONCE #1 each Is patient prescribed a controlled substance at d/c from ED?: No Referrals: None,Stated [Primary Care Provider] - 1-2 days Time of Disposition: 07:30
[2022-07-03 07:03] VITALS: BP 125/74; PULSE 100; RESP 18
== END 2022-07-03 07:38 | disposition home or self-care (01) ==
LOC: EC 04:25
DX: T40.1X1A Poisoning by heroin, accidental (unintentional), initial encounter (principal); F90.9 Attention-deficit hyperactivity disorder, unspecified type; F41.9 Anxiety disorder, unspecified; F31.9 Bipolar disorder, unspecified; F17.200 Nicotine dependence, unspecified, uncomplicated; F12.90 Cannabis use, unspecified, uncomplicated; F11.90 Opioid use, unspecified, uncomplicated
CPT/HCPCS: 99284

== ENCOUNTER 2022-10-08 16:38 | Emergency (ER) | payer OTHER ==
--- NOTE | 2022-10-08 17:16 | ED ---
General Adult HPI - General Chief complaint: Overdose Stated complaint: Overdose Time Seen by Provider: 10/08/22 16:52 Source: patient Mode of arrival: EMS Limitations: no limitations - History of Present Illness Initial comments: Dictation was produced using [employer] dictation software. please excuse any grammatical, word or spelling errors. Chief Complaint: 32-year-old female past medical history illicit drug abuse presents after heroin History of Present Illness: Patient 32-year-old female she is known to emergency department for heroin abuse. She was found at the gas station bathroom with a needle in her arm. Patient states she did take care when prior to coming here. She was not given any Narcan according to EMS. Patient has no complaints at the bedside The ROS documented in this emergency department record has been reviewed and confirmed by me. Those systems with pertinent positive or negative responses have been documented in the HPI. All other systems are other negative and/or noncontributory. - Related Data Previous Rx's Medication Instructions Recorded Naloxone HCl 0.4 mg INTRANASAL ONCE #1 each 07/03/22 Allergies Allergy/AdvReac Type Severity Reaction Status Date / Time No Known Allergies Allergy Verified 03/16/22 14:38 Review of Systems ROS Statement: Those systems with pertinent positive or pertinent negative responses have been documented in the HPI. ROS Other: All systems not noted in ROS Statement are negative. Past Medical History Past Medical History: No Reported History Additional Past Medical History / Comment(s): post depression, Endocarditis History of Any Multi-Drug Resistant Organisms: MRSA Date of last positivie culture/infection: 08/01/20 MDRO Source:: Blood Past Surgical History: No Surgical Hx Reported Additional Past Surgical History / Comment(s): Colposcopy Past Anesthesia/Blood Transfusion Reactions: No Reported Reaction Past Psychological History: ADD/ADHD, Anxiety, Bipolar, Depression Smoking Status: Current every day smoker Past Alcohol Use History: None Reported Past Drug Use History: Heroin, IV Drug Use, Marijuana - Past Family History Mother Additional Family Medical History / Comment(s): She reports family history of heart disease on her mother's side. Father Additional Family Medical History / Comment(s): She reports that her father had a problem with high sodium levels. General Exam - General Exam Comments Initial Comments: PHYSICAL EXAM: General Impression: Alert and oriented x3, not in acute distress, somnolent but arousable HEENT: Normocephalic atraumatic, extra-ocular movements intact, pupils equal and reactive to light bilaterally, mucous membranes moist. Cardiovascular: Heart regular rate and rhythm Chest: Able to complete full sentences, no retractions, no tachypnea Abdomen: abdomen soft, non-tender, non-distended, no organomegaly Musculoskeletal: Pulses present and equal in all extremities, no peripheral edema Motor: no focal deficits noted Neurological: CN II-XII grossly intact, no focal motor or sensory deficits noted Skin: Intact with no visualized rashes Psych: Normal affect and mood Limitations: no limitations Course Vital Signs 10/08/22 10/08/22 10/08/22 16:41 16:49 17:32 Temperature 98.4 F Pulse Rate 71 60 Respiratory 18 18 18 Rate Blood Pressure 125/80 125/80 103/63 O2 Sat by Pulse 98 Oximetry Medical Decision Making - Medical Decision Making Was pt. sent in by a medical professional or institution (, PA, SUPERVISOR [employer]MENT, urgent care, hospital, or longterm...) When possible be specific @ -No Did you speak to anyone other than the patient for history (EMS, parent, family, police, friend...)? What history was obtained from this source @ -EMS Did you review nursing and triage notes (agree or disagree)? Why? @ -I reviewed and agree with nursing and triage notes Were old charts reviewed (outside hosp., previous admission, EMS record, old EKG, old radiological studies, urgent care reports/EKG's, longterm records)? Report findings @ -No old charts were reviewed Differential Diagnosis (chest pain, altered mental status, abdominal pain women, abdominal pain men, vaginal bleeding, musculoskeletal, weakness, fever, dyspnea, syncope, headache, dizziness, GI bleed, back pain, seizure, CVA, palpatations, mental health)? @ -Differential Altered Mental Status: Hypoglycemia, DKA, hypercapnia, ETOH, overdose, CO poisoning, trauma, myxedema coma, HTN encephalopathy, infection, encephalitis, psychosis, intercranial hemorrhage, hepatic encephalopathy, meningitis, CVA, this is not meant to be an all-inclusive list EKG interpreted by me (3pts min.). @ -None done X-rays interpreted by me (1pt min.). @ -None done CT interpreted by me (1pt min.). @ -None done U/S interpreted by me (1pt. min.). @ -None done What testing was considered but not performed or refused? (CT, X-rays, U/S, labs)? Why? @ -None What meds were considered but not given or refused? Why? @ -None Did you discuss the management of the patient with other professionals (professionals i.e. Dr., PA, SUPERVISOR EX[employer], lab, RT, psych nurse, social work instructor, grad intern, teacher, program officer, home health care case manager)? Give summary @ -No Was smoking cessation discussed for >3mins.? @ -No Was critical care preformed (if so, how long)? @ -No Were there social determinants of health that impacted care today? How? (Homelessness, low income, unemployed, alcoholism, drug addiction, transportation, low edu. Level, literacy, decrease access to med. care, [facility], rehab)? @ -No Was there de-escalation of care discussed even if they declined (Discuss DNR or withdrawal of care, Hospice)? DNR status @ -No What co-morbidities impacted this encounter? (DM, HTN, Smoking, COPD, CAD, Cancer, CVA, ARF, Chemo, Hep., AIDS, mental health diagnosis, sleep apnea, morbid obesity)? @ -None Was patient admitted / discharged? Hospital course, mention meds given and route, prescriptions, significant lab abnormalities, going to OR and other pertinent info. @ -32-year-old female presents emergency Department with opiate toxidrome. She did admit to injecting heroin. Patient monitored in the emergency department for several hours. Patient not have any respiratory issues. Stable vital signs, stable respiratory rate and stable oxygen. Patient discharged. Undiagnosed new problem with uncertain prognosis? @ -No Drug Therapy requiring intensive monitoring for toxicity (Heparin, Nitro, Insulin, Cardizem)? @ -No Were any procedures done? @ -No Diagnosis/symptom? Acute, or Chronic, or Acute on Chronic? Uncomplicated (without systemic symptoms) or Complicated (systemic symptoms)? @ -1. Heroin toxicity Side effects of treatment? @ -No Exacerbation, Progression, or Severe Exacerbation? @ -No Poses a threat to life or bodily function? How? (Chest pain, [place], [place], pneumonia, PE, COPD, DKA, ARF, appy, cholecystitis, CVA, Diverticulitis, Homicidal, Suicidal, threat to staff... and all critical care pts) @ -yes Disposition Clinical Impression: Heroin use Disposition: HOME SELF-CARE Condition: Fair Instructions (If sedation given, give patient instructions): Opioid Safety (ED), Opioid Use Disorder (ED) Is patient prescribed a controlled substance at d/c from ED?: No When asked, does pt state using other controlled substances?: No Referrals: None,Stated [Primary Care Provider] - 1-2 days Time of Disposition: 20:06
[2022-10-08 20:39] VITALS: BP 112/75; PULSE 80; RESP 20; TEMP 98.7
== END 2022-10-08 20:47 | disposition home or self-care (01) ==
LOC: EC 16:38
DX: T40.1X1A Poisoning by heroin, accidental (unintentional), initial encounter (principal); F31.9 Bipolar disorder, unspecified; F41.9 Anxiety disorder, unspecified; F12.90 Cannabis use, unspecified, uncomplicated; F17.200 Nicotine dependence, unspecified, uncomplicated
CPT/HCPCS: 99284

== ENCOUNTER 2023-04-05 14:16 | Emergency (ER) | payer OTHER ==
[2023-04-05] MEDS ORDERED: SODIUM CHLORIDE 0.9% 1,000 ML IV STA (15:25)
[2023-04-05 15:30] LABS: Basophils % (A) 0 %; Eosinophils # (A) 0.2 k/uL (0-0.7); Eosinophils % (A) 2 %; HCT 39.4 % (34.0-46.0); HGB 12.6 gm/dL (11.4-16.0); Lymphocytes # (A) 1.6 k/uL (1.0-4.8); Lymphocytes % (A) 21 %; MCH 28.9 pg (25.0-35.0); MCHC 32.1 g/dL (31.0-37.0); MCV 90.1 fL (80.0-100.0); Mean Platelet Volume 8.3; Monocytes # (A) 0.5 k/uL (0-1.0); Monocytes % (A) 7 %; Neutrophils # (A) 5.3 k/uL (1.3-7.7); Neutrophils % (A) 68 %; Platelet Count 264 k/uL (150-450); RBC 4.37 m/uL (3.80-5.40); RDW 14.6 % (11.5-15.5); WBC 7.8 k/uL (3.8-10.6)
[2023-04-05 15:38] LABS: ALT 43 U/L (4-34); AST 43 U/L (14-36); African American GFR (CKD) 77 (>60 ml/min/1.73 sqM); Albumin 4.2 g/dL (3.5-5.0); Alkaline Phosphatase 40 U/L (38-126); Anion Gap 7 mmol/L; Blood Urea Nitrogen 12 mg/dL (7-17); Calcium 9.3 mg/dL (8.4-10.2); Carbon Dioxide 27 mmol/L (22-30); Chloride 104 mmol/L (98-107); Glucose 100 mg/dL (74-99); Non-African American GFR(CKD) 67 (>60 ml/min/1.73 sqM); Potassium 5.6 mmol/L (3.5-5.1); Sodium 138 mmol/L (137-145); Total Bilirubin 0.5 mg/dL (0.2-1.3); Total Protein 7.7 g/dL (6.3-8.2)
--- NOTE | 2023-04-05 15:52 | XR ---
EXAMINATION TYPE: XR chest 2V DATE OF EXAM: 04/05/2023 COMPARISON: 03/16/2022 HISTORY: 33-year-old female confusion, altered mental status TECHNIQUE: AP and lateral views FINDINGS: Heart borderline to mildly enlarged. Hazy lower lung densities related to overlying soft tissue. No c onsolidation or pleural effusion seen. IMPRESSION: The heart appears borderline to mildly enlarged. Clinical correlation recommended.
--- NOTE | 2023-04-05 15:55 | ED ---
Altered Mental Status HPI - General Chief Complaint: Altered Mental Status Stated Complaint: under the influence Time Seen by Provider: 04/05/23 14:43 Source: patient Mode of arrival: wheelchair - History of Present Illness Initial Comments: Patient is a 33-year-old female who presents the emergency department for lethargy. Patient presents from the [facility] care home she was brought in due to increased lethargy today. She did not have any loss of consciousness has been sleeping most of the day. Patient was found to have drugs in her cell exact drug is unknown. Patient is able to answer questions she denies chest pain, shortness of breath. Denies abdominal pain, nausea or vomiting. - Related Data Home Medications Medication Instructions Recorded Confirmed No Known Home Medications 04/05/23 04/05/23 Allergies Allergy/AdvReac Type Severity Reaction Status Date / Time No Known Allergies Allergy Verified 04/05/23 15:30 Review of Systems ROS Statement: Those systems with pertinent positive or pertinent negative responses have been documented in the HPI. ROS Other: All systems not noted in ROS Statement are negative. Past Medical History Past Medical History: No Reported History Additional Past Medical History / Comment(s): post depression, Endocarditis History of Any Multi-Drug Resistant Organisms: MRSA Date of last positivie culture/infection: 08/01/20 MDRO Source:: Blood Past Surgical History: No Surgical Hx Reported Additional Past Surgical History / Comment(s): Colposcopy Past Anesthesia/Blood Transfusion Reactions: No Reported Reaction Past Psychological History: ADD/ADHD, Anxiety, Bipolar, Depression Smoking Status: Current every day smoker Past Alcohol Use History: None Reported Past Drug Use History: Heroin, IV Drug Use, Marijuana - Past Family History Mother Additional Family Medical History / Comment(s): She reports family history of heart disease on her mother's side. Father Additional Family Medical History / Comment(s): She reports that her father had a problem with high sodium levels. General Exam General appearance: lethargic Eye exam: Present: PERRL, EOMI. Absent: normal appearance (Pinpoint pupils), scleral icterus, conjunctival injection, periorbital swelling Respiratory exam: Present: normal lung sounds bilaterally. Absent: respiratory distress, wheezes, rales, rhonchi, stridor Cardiovascular Exam: Present: regular rate, normal rhythm, normal heart sounds. Absent: systolic murmur, diastolic murmur, rubs, gallop, clicks GI/Abdominal exam: Present: soft, normal bowel sounds. Absent: distended, tenderness, guarding, rebound, rigid Skin exam: Present: warm, dry, intact, normal color. Absent: rash Course Vital Signs 04/05/23 04/05/23 14:24 18:09 Temperature 98.1 F 98.4 F Pulse Rate 81 51 L Respiratory 16 14 Rate Blood Pressure 145/75 123/59 O2 Sat by Pulse 91 L 96 Oximetry Medical Decision Making - Medical Decision Making EKG taken at 15:29, interpreted by myself Sinus rhythm, incomplete right bundle branch block Ventricular rate 63, VT interval 138, QRS duration 101, QTC 379 Was pt. sent in by a medical professional or institution ([facility], [facility], urgent care, hospital, or care home...) When possible be specific @ -No Did you speak to anyone other than the patient for history (EMS, parent, family, police, friend...)? What history was obtained from this source @ -accounts officer Did you review nursing and triage notes (agree or disagree)? Why? @ -I reviewed and agree with nursing and triage notes Were old charts reviewed (outside hosp., previous admission, EMS record, old EKG, old radiological studies, urgent care reports/EKG's, care home records)? Report findings @ -No old charts were reviewed Differential Diagnosis (chest pain, altered mental status, abdominal pain women, abdominal pain men, vaginal bleeding, weakness, fever, dyspnea, syncope, headache, dizziness, GI bleed, back pain, seizure, CVA, palpatations, mental health)? @ -Drug intoxication, alcohol intoxication, withdrawal EKG interpreted by me (3pts min.). @ -As above X-rays interpreted by me (1pt min.). @ -None done CT interpreted by me (1pt min.). @ -None done U/S interpreted by me (1pt. min.). @ -None done What testing was considered but not performed or refused? (CT, X-rays, U/S, labs)? Why? @ -None What meds were considered but not given or refused? Why? @ -None Did you discuss the management of the patient with other professionals (professionals i.e. [facility], [facility]NER, lab, RT, psych nurse, child protective services social worker, crane mechanic, teacher, guest services officer, case work aide)? Give summary @ -No Was smoking cessation discussed for >3mins.? @ -No Was critical care preformed (if so, how long)? @ -No Were there social determinants of health that impacted care today? How? (Homelessness, low income, unemployed, alcoholism, drug addiction, transportation, low edu. Level, literacy, decrease access to med. care, care home, rehab)? @ -No Was there de-escalation of care discussed even if they declined (Discuss DNR or withdrawal of care, Hospice)? DNR status @ -No What co-morbidities impacted this encounter? (DM, HTN, Smoking, COPD, CAD, Cancer, CVA, ARF, Chemo, Hep., AIDS, mental health diagnosis, sleep apnea, morbid obesity)? @ -None Was patient admitted / discharged? Hospital course, mention meds given and route, prescriptions, significant lab abnormalities, going to OR and other pertinent info. @ -33-year-old presenting for intoxication. Patient is lethargic but arousable. She is able to answer questions appropriately. Pin point pupils are evident on exam. Patient denies any drug use. Labs obtained. There is hyperkalemia at 5.6. Other laboratory studies are relatively unremarkable. Patient given fluid bolus she was observed in the emergency department for 4 hours. She did not have any episodes of respiratory depression or hypoxia. Patient continued to be sleepy but was arousable in no evidence of distress. Vitals remained stable. Patient will be discharged with strict return parameters. Undiagnosed new problem with uncertain prognosis? @ -No Drug Therapy requiring intensive monitoring for toxicity (Heparin, Nitro, Insulin, Cardizem)? @ -No Were any procedures done? @ -No Diagnosis/symptom? @ -intoxication Acute, or Chronic, or Acute on Chronic? @ -acute Uncomplicated (without systemic symptoms) or Complicated (systemic symptoms)? @ uncomplicated Side effects of treatment? @ -No Exacerbation, Progression, or Severe Exacerbation? @ -No Poses a threat to life or bodily function? How? (Chest pain, USA, ID, pneumonia, PE, COPD, DKA, ARF, appy, cholecystitis, CVA, Diverticulitis, Homicidal, Suicidal, threat to staff... and all critical care pts) @ -No Dr. Bach is my attending - Lab Data Result diagrams: 04/05/23 15:15 04/05/23 15:15 Lab Results 04/05/23 04/05/23 04/05/23 Range/Units 15:15 15:15 15:15 WBC 7.8 (3.8-10.6) k/uL RBC 4.37 (3.80-5.40) m/uL Hgb 12.6 (11.4-16.0) gm/dL Hct 39.4 (34.0-46.0) % MCV 90.1 (80.0-100.0) fL MCH 28.9 (25.0-35.0) pg MCHC 32.1 (31.0-37.0) g/dL RDW 14.6 (11.5-15.5) % Plt Count 264 (150-450) k/uL MPV 8.3 Neutrophils % 68 % Lymphocytes % 21 % Monocytes % 7 % Eosinophils % 2 % Basophils % 0 % Neutrophils # 5.3 (1.3-7.7) k/uL Lymphocytes # 1.6 (1.0-4.8) k/uL Monocytes # 0.5 (0-1.0) k/uL Eosinophils # 0.2 (0-0.7) k/uL Basophils # 0.0 (0-0.2) k/uL Sodium 138 (137-145) mmol/L Potassium 5.6 H (3.5-5.1) mmol/L Chloride 104 (98-107) mmol/L Carbon Dioxide 27 (22-30) mmol/L Anion Gap 7 mmol/L BUN 12 (7-17) mg/dL Creatinine 1.09 H (0.52-1.04) mg/dL Est GFR (CKD-EPI)AfAm 77 (>60 ml/min/1.73 sqM) Est GFR (CKD-EPI)NonAf 67 (>60 ml/min/1.73 sqM) Glucose 100 H (74-99) mg/dL Calcium 9.3 (8.4-10.2) mg/dL Total Bilirubin 0.5 (0.2-1.3) mg/dL AST 43 H (14-36) U/L ALT 43 H (4-34) U/L Alkaline Phosphatase 40 (38-126) U/L Total Protein 7.7 (6.3-8.2) g/dL Albumin 4.2 (3.5-5.0) g/dL Influenza Type A (PCR) Not Detected (Not Detectd) Influenza Type B (PCR) Not Detected (Not Detectd) RSV (PCR) Not Detected (Not Detectd) SARS-CoV-2 (PCR) Not Detected (Not Detectd) Disposition Clinical Impression: Intoxication Disposition: HOME SELF-CARE Condition: Good Instructions (If sedation given, give patient instructions): Narcotic Use Disorder (ED) Additional Instructions: Patient needs to have potassium rechecked tomorrow. Return to the emergency Department if patient experiences new, concerning, or worsening symptoms. Is patient prescribed a controlled substance at d/c from ED?: No Referrals: None,Stated [Primary Care Provider] - 1-2 days
[2023-04-05 18:10] VITALS: BP 123/59; PULSE 51; RESP 14; TEMP 98.4
== END 2023-04-05 18:25 | disposition home or self-care (01) ==
LOC: EC 14:16
DX: F10.129 Alcohol abuse with intoxication, unspecified (principal); I51.7 Cardiomegaly; I45.10 Unspecified right bundle-branch block; F17.200 Nicotine dependence, unspecified, uncomplicated; F12.90 Cannabis use, unspecified, uncomplicated; Z86.59 Personal history of other mental and behavioral disorders; Z20.822 Contact with and (suspected) exposure to COVID-19
CPT/HCPCS: 36415; 71046; 80053; 85025; 87636; 93005; 96360; 99285

== ENCOUNTER 2023-12-21 08:29 | Inpatient (IN) | payer MEDICAID, OTHER ==
--- NOTE | 2023-12-21 09:26 | ED ---
Psych HPI - General Chief Complaint: Psychiatric Symptoms Stated Complaint: overdose Time Seen by Provider: 12/21/23 08:31 Source: patient, EMS Mode of arrival: EMS - History of Present Illness Initial Comments: 33-year-old female who presents emergency department as an overdose. It is reported by EMS that she was found assisted hanging out of a car. They gave her 4 mg of intranasal Narcan and the patient aroused. She states that she used a white powdery substance and did a "line" in an attempt to harm herself. States that her boyfriend does not care about her and she just wanted to end it all. When further prompting the patient she admits that she used heroin. She states she remembers going into the basement to grab all of her stuff and was attempting to get into the car and leave her boyfriend's house. she admits to multiple episodes in the past where she overdosed on heroin trying to harm herself however was never evaluated by social service technician. Patient states that she is depressed. She denies any other drug use or alcohol. She states that no one cares about her. She denies concern for . No other alleviating, precipitating or modifying factors - Related Data Home Medications Medication Instructions Recorded Confirmed Citalopram Hydrobromide [CeleXA] 40 mg PO HS 12/21/23 12/21/23 QUEtiapine FUMARATE [SEROquel XR] 150 mg PO HS 12/21/23 12/21/23 cloNIDine HCL 0.1 mg PO BID 12/21/23 12/21/23 Allergies Allergy/AdvReac Type Severity Reaction Status Date / Time No Known Allergies Allergy Verified 12/21/23 10:17 Review of Systems ROS Statement: Those systems with pertinent positive or pertinent negative responses have been documented in the HPI. ROS Other: All systems not noted in ROS Statement are negative. Past Medical History Past Medical History: No Reported History Additional Past Medical History / Comment(s): post depression, Endocarditis History of Any Multi-Drug Resistant Organisms: MRSA Date of last positivie culture/infection: 08/01/20 MDRO Source:: Blood Past Surgical History: No Surgical Hx Reported Additional Past Surgical History / Comment(s): Colposcopy Past Anesthesia/Blood Transfusion Reactions: No Reported Reaction Past Psychological History: ADD/ADHD, Anxiety, Bipolar, Depression Smoking Status: Current every day smoker Past Alcohol Use History: None Reported Past Drug Use History: Heroin, IV Drug Use, Marijuana - Past Family History Mother Additional Family Medical History / Comment(s): She reports family history of heart disease on her mother's side. Father Additional Family Medical History / Comment(s): She reports that her father had a problem with high sodium levels. General Exam Limitations: no limitations General appearance: alert Head exam: Present: atraumatic, normocephalic, normal inspection Eye exam: Present: normal appearance ENT exam: Present: normal exam, mucous membranes moist Respiratory exam: Present: normal lung sounds bilaterally. Absent: respiratory distress, wheezes, rales, rhonchi, stridor Cardiovascular Exam: Present: regular rate, normal rhythm, normal heart sounds. Absent: systolic murmur, diastolic murmur, rubs, gallop, clicks GI/Abdominal exam: Present: soft, normal bowel sounds. Absent: distended, tenderness, guarding, rebound, rigid Psychiatric exam: Present: depressed, flat affect, suicidal ideation Course Vital Signs 12/21/23 12/21/23 12/21/23 08:30 12:49 12:55 Temperature 97.5 F L Pulse Rate 113 H 71 90 Respiratory 14 16 18 Rate Blood Pressure 124/97 136/89 123/85 O2 Sat by Pulse 100 100 97 Oximetry Medical Decision Making - Medical Decision Making Was pt. sent in by a medical professional or institution ( PA, CASE ASSISTANT, urgent care, hospital, or [place] health [facility] facility...) When possible be specific @ -No Did you speak to anyone other than the patient for history (EMS, parent, family, police, friend...)? What history was obtained from this source @ -Spoke with EMS who did provide the patient with Narcan Did you review nursing and triage notes (agree or disagree)? Why? @ -I reviewed and agree with nursing and triage notes Were old charts reviewed (outside hosp., previous admission, EMS record, old EKG, old radiological studies, urgent care reports/EKG's, [place] [facility] facility records)? Report findings @ -I reviewed several old charts on the patient where she visited the emergency department and received Narcan due to overdose Differential Diagnosis (chest pain, altered mental status, abdominal pain women, abdominal pain men, vaginal bleeding, weakness, fever, dyspnea, syncope, headache, dizziness, GI bleed, back pain, seizure, CVA, palpatations, mental health, musculoskeletal)? @ -Differential Mental Health Depression, anxiety, bipolar, psychosis, schizophrenia, borderline personality, situational depression, adjustment disorder, behavioral disorder, brain tumor, malingering, substance abuse, encephalopathy, medication reaction, dementia, hypothyroidism, degenerative neurologic disorder, lupus.... This is not meant to be all-inclusive list EKG interpreted by me (3pts min.). @ -Not done X-rays interpreted by me (1pt min.). @ -None done CT interpreted by me (1pt min.). @ -None done U/S interpreted by me (1pt. min.). @ -None done What testing was considered but not performed or refused? (CT, X-rays, U/S, labs)? Why? @ -None What meds were considered but not given or refused? Why? @ -None Did you discuss the management of the patient with other professionals (professionals i.e. , PA, CASE ASSISTANT, lab, RT, psych nurse, nursing home social worker, catalyst impregnator, teacher, strike operations officer, case therapist)? Give summary @ -Spoke with the EPS nurse in regards to the patient's symptoms Was smoking cessation discussed for >3mins.? @ -No Was critical care preformed (if so, how long)? @ -No Were there social determinants of health that impacted care today? How? (Homelessness, low income, unemployed, alcoholism, drug addiction, transportation, low edu. Level, literacy, decrease access to med. care, [facility], rehab)? @ -No Was there de-escalation of care discussed even if they declined (Discuss DNR or withdrawal of care, Hospice)? DNR status @ -No What co-morbidities impacted this encounter? (DM, HTN, Smoking, COPD, CAD, Cancer, CVA, ARF, Chemo, Hep., AIDS, mental health diagnosis, sleep apnea, morbid obesity)? @ -Opiate abuse Was patient admitted / discharged? Hospital course, mention meds given and route, prescriptions, significant lab abnormalities, going to OR and other pertinent info. @ -Upon arrival patient was seen and evaluated in room 1. A thorough history and physical exam was performed. Patient finally admits that she used heroin. She is awake and alert and able to provide history. Patient was to be observed in the emergency department for her overdose. She does make several comments in regards to wanting to harm herself. She states that she used the heroin and was purposely trying to overdose because her boyfriend does not care about her. As the patient does make multiple repetitive statements I do feel it is necessary that we address her mental health at this time. I did watch her for approximately an hour for which she does maintain her arousable state. The patient continues to report that she is "depressed". We did call EPS who evaluates the patient. EPS feels that the patient requires psychiatric treatment and therefore I do feel out of certification on the patient. Patient is very upset as she does not get to go home. She is currently pending transfer at this time Undiagnosed new problem with uncertain prognosis? @ -No Drug Therapy requiring intensive monitoring for toxicity (Heparin, Nitro, Insulin, Cardizem)? @ -No Were any procedures done? @ -No Diagnosis/symptom? @ -Acute opiate overdose, intentional overdose, suicidal ideations Acute, or Chronic, or Acute on Chronic? @ -Acute Uncomplicated (without systemic symptoms) or Complicated (systemic symptoms)? @ -Complicated Side effects of treatment? @ -No Exacerbation, Progression, or Severe Exacerbation? @ -No Poses a threat to life or bodily function? How? (Chest pain, USA, CT, pneumonia, PE, COPD, DKA, ARF, appy, cholecystitis, CVA, Diverticulitis, Homicidal, Suicidal, threat to staff... and all critical care pts) @ -Yes as patient did require Narcan - Lab Data Lab Results 12/21/23 Range/Units 13:00 SARS-CoV-2 (PCR) Not Detected (Not Detectd) Disposition Clinical Impression: Depression, Heroin abuse, Intentional overdose, Attempted suicide Disposition: TRANSFER TO PSYCH HOSP/UNIT Condition: Stable Is patient prescribed a controlled substance at d/c from ED?: No Referrals: None,Stated [Primary Care Provider] - 1-2 days
[2023-12-21 20:36] LABS: Basophils % (A) 1 %; Eosinophils # (A) 0.2 k/uL (0-0.7); Eosinophils % (A) 2 %; HCT 39.3 % (34.0-46.0); HGB 12.9 gm/dL (11.4-16.0); Lymphocytes # (A) 2.6 k/uL (1.0-4.8); Lymphocytes % (A) 37 %; MCH 30.7 pg (25.0-35.0); MCHC 32.8 g/dL (31.0-37.0); MCV 93.5 fL (80.0-100.0); Mean Platelet Volume 8.9; Monocytes # (A) 0.5 k/uL (0-1.0); Monocytes % (A) 7 %; Neutrophils # (A) 3.7 k/uL (1.3-7.7); Neutrophils % (A) 51 %; Platelet Count 238 k/uL (150-450); RBC 4.21 m/uL (3.80-5.40); RDW 13.4 % (11.5-15.5); WBC 7.2 k/uL (3.8-10.6)
[2023-12-21] MEDS: QUEtiapine 25 MG TAB PO SCH (20:59)
[2023-12-21] MEDS: cloNIDine HCL 0.1 MG TAB PO SCH (20:59)
[2023-12-21] MEDS: CITALOPRAM HYDROBROMIDE 20 MG TAB PO SCH (21:00)
[2023-12-21 21:03] LABS: ALT 22 U/L (4-34); African American GFR (CKD) >90 (>60 ml/min/1.73 sqM); Albumin 3.8 g/dL (3.5-5.0); Anion Gap 5 mmol/L; Blood Urea Nitrogen 7 mg/dL (7-17); Calcium 9.1 mg/dL (8.4-10.2); Carbon Dioxide 26 mmol/L (22-30); Chloride 106 mmol/L (98-107); Glucose 82 mg/dL (74-99); Non-African American GFR(CKD) 79 (>60 ml/min/1.73 sqM); Sodium 137 mmol/L (137-145); Total Bilirubin 0.5 mg/dL (0.2-1.3); Total Protein 6.6 g/dL (6.3-8.2)
[2023-12-21 21:09] LABS: Potassium 4.4 mmol/L (3.5-5.1)
[2023-12-21 21:10] LABS: AST 25 U/L (14-36); Alkaline Phosphatase 37 U/L (38-126)
[2023-12-22 10:58] LABS: Appearance,Urine Turbid (Clear); Bacteria,Urine Many /hpf; Bilirubin,Urine Negative (Negative); Blood,Urine Trace (Negative); Budding Yeast,Urine Rare /hpf; Color,Urine Yellow; Glucose,Urine (UA) Negative (Negative); Ketones,Urine Negative (Negative); Leukocyte Esterase,Urine Moderate (Negative); Mucus,Urine Rare /hpf; Nitrite,Urine Negative (Negative); Protein,Urine 1+ (Negative); RBC,Urine 8 /hpf (0-5); Specific Gravity,Urine 1.021 (1.001-1.035); Squamous Epithelial Cell,Urine 59 /hpf (0-4); Urobilinogen,Urine <2.0 mg/dL (<2.0); WBC,Urine 12 /hpf (0-5)
[2023-12-22 11:26] LABS: Urn Cannabinoid Scrn Detected (NotDetected)
[2023-12-22 11:27] LABS: Amphetamine Screen,Urine Detected (NotDetected); Barbiturate Screen,Urine Not Detected (NotDetected); Benzodiazepines Screen,Urine Not Detected (NotDetected); Cocaine Screen,Urine Not Detected (NotDetected); Methadone Screen, Urine Not Detected (NotDetected); Opiate Screen,Urine Not Detected (NotDetected); Oxycodone Screen, Urine Not Detected (NotDetected); Phencyclidine Screen,Urine Not Detected (NotDetected); Tricyclic Antidepressant,Urine Detected (NotDetected)
[2023-12-23] MEDS ORDERED: MAG HYDROX/AL HYDROX/SIMETH 355 ML BOTTLE PO PRN (17:40)
[2023-12-23] MEDS ORDERED: LORazepam 2 MG/ML INJ IM PRN (17:40)
[2023-12-23] MEDS ORDERED: IBUPROFEN 600 MG TAB PO PRN (17:40)
[2023-12-23] MEDS ORDERED: MAGNESIUM HYDROXIDE 2,400 MG/30 ML CUP PO PRN (17:40)
[2023-12-23] MEDS ORDERED: ACETAMINOPHEN TAB 325 MG TAB PO PRN (17:40)
[2023-12-23] MEDS: LORazepam 1 MG TAB PO PRN (21:36)
--- NOTE | 2023-12-24 01:48 | P.CONS ---
History of Present Illness - Reason for Consult Consult date: 12/24/23 - History of Present Illness The patient is a 33-year-old female with a PMH of polysubstance abuse, ADHD, bipolar disorder, chronic hepatitis C, who was brought into the emergency room for suspected substance abuse. The patient was reportedly found to have a hanging outside of her car and was given intranasal Narcan with subsequent improvement in her mental status. The patient had reported to the EMS that she was attempting to harm herself. She was admitted to the mental health unit where she was seen and evaluated. The patient denied any physical complaints at the time of interview. She denied experiencing chest discomfort, shortness breath, fever, chills, cough, nausea, vomiting, abdominal pain, diarrhea. She reports feeling down about her life and that she does not have anyone who cares for her. She reports ongoing tobacco abuse smoking half pack of cigarettes daily. She denied any additional substance use but urine toxicology was positive for methamphetamine, marijuana, and TCAs. UA was also grossly abnormal but the patient denied any urinary complaints. Review of systems: Pertinent positives and negatives as discussed in HPI, a complete review of systems was performed and all other systems are negative. Physical examination: General: non toxic, no distress, appears older than stated age, normal weight Derm: no unusual rashes/lesions, no unusual ecchymoses, warm, dry Head: atraumatic, normocephalic, symmetric Eyes: EOMI, no lid lag, anicteric sclera ENT: Nose and ears atraumatic, no thrush, no pharyngeal erythema Neck: trachea midline, supple Mouth: no lip lesion, mucus membranes moist Cardiovascular: S1S2 reg, no murmur, no edema Lungs: CTA bilateral, no rhonchi, no rales , no accessory muscle use Abdominal: soft, nontender to palpation, no guarding Ext: no gross muscle atrophy, no contractures, Neuro: No gross focal neuro deficits noted Psych: Alert, oriented, appropriate affect Assessment: Polysubstance abuse Abnormal UA Depression and suicidal ideation Chronic conditions: Chronic hepatitis C Imaging: None performed Data Review: Reviewed with UA consistent with UTI, WBC count 7.2, hemoglobin 12.9, platelet count 238, sodium 137, potassium 4.4, with urine toxicology positive for methamphetamines Plan: Advised on the importance of cessation Abnormal UA likely due to colonization as patient currently denying symptoms Defer management of depression and suicidal ideation to the primary psychiatry service Thank you for allowing us to participate in the care of this patient. We will follow peripherally. Do not hesitate to contact us with questions. Someone can be reached from the [facility] hospitalist group at all hours of the day at [phone]. Past Medical History Past Medical History: No Reported History Additional Past Medical History / Comment(s): post depression, Endocarditis History of Any Multi-Drug Resistant Organisms: MRSA Year Discovered:: 08/01/20 MDRO Source:: Blood Past Surgical History: No Surgical Hx Reported Additional Past Surgical History / Comment(s): Colposcopy Past Anesthesia/Blood Transfusion Reactions: No Reported Reaction Past Psychological History: ADD/ADHD, Anxiety, Bipolar, Depression Smoking Status: Current every day smoker Past Alcohol Use History: None Reported Past Drug Use History: Heroin, IV Drug Use, Marijuana - Past Family History Mother Additional Family Medical History / Comment(s): She reports family history of heart disease on her mother's side. Father Additional Family Medical History / Comment(s): She reports that her father had a problem with high sodium levels. Medications and Allergies Home Medications Medication Instructions Recorded Confirmed Type Citalopram Hydrobromide [CeleXA] 40 mg PO HS 12/21/23 12/21/23 History QUEtiapine FUMARATE [SEROquel XR] 150 mg PO HS 12/21/23 12/21/23 History cloNIDine HCL 0.1 mg PO BID 12/21/23 12/21/23 History Allergies Allergy/AdvReac Type Severity Reaction Status Date / Time No Known Allergies Allergy Verified 12/21/23 10:17 Physical Exam Vitals: Vital Signs Temp Pulse Pulse Resp BP BP Pulse Ox 12/23/23 22:26 98.5 F 77 20 121/71 98 12/23/23 08:11 98.3 F 79 18 111/71 99 Results CBC & Chem 7: 12/21/23 19:32 12/21/23 19:32
--- NOTE | 2023-12-24 10:36 | P.HP ---
Psychiatric H&P - . H&P Date: 12/24/23 History & Physical: Allergies Allergy/AdvReac Type Severity Reaction Status Date / Time No Known Allergies Allergy Verified 12/21/23 10:17 Vital Signs Temp 98.4 F 12/24/23 06:44 Pulse 76 12/24/23 06:44 Resp 16 12/24/23 06:44 BP 93/64 12/24/23 06:44 Pulse Ox 100 12/24/23 06:44 FiO2 Laboratory Last Values WBC 7.2 k/uL (3.8-10.6) 12/21/23 19:32 RBC 4.21 m/uL (3.80-5.40) 12/21/23 19:32 Hgb 12.9 gm/dL (11.4-16.0) 12/21/23 19:32 Hct 39.3 % (34.0-46.0) 12/21/23 19:32 MCV 93.5 fL (80.0-100.0) 12/21/23 19:32 MCH 30.7 pg (25.0-35.0) 12/21/23 19:32 MCHC 32.8 g/dL (31.0-37.0) 12/21/23 19:32 RDW 13.4 % (11.5-15.5) 12/21/23 19:32 Plt Count 238 k/uL (150-450) 12/21/23 19:32 MPV 8.9 12/21/23 19:32 Neutrophils % 51 % 12/21/23 19:32 Lymphocytes % 37 % 12/21/23 19:32 Monocytes % 7 % 12/21/23 19:32 Eosinophils % 2 % 12/21/23 19:32 Basophils % 1 % 12/21/23 19:32 Neutrophils # 3.7 k/uL (1.3-7.7) 12/21/23 19:32 Lymphocytes # 2.6 k/uL (1.0-4.8) 12/21/23 19:32 Monocytes # 0.5 k/uL (0-1.0) 12/21/23 19:32 Eosinophils # 0.2 k/uL (0-0.7) 12/21/23 19:32 Basophils # 0.0 k/uL (0-0.2) 12/21/23 19:32 Sodium 137 mmol/L (137-145) 12/21/23 19:32 Potassium 4.4 mmol/L (3.5-5.1) 12/21/23 19:32 Chloride 106 mmol/L (98-107) 12/21/23 19:32 Carbon Dioxide 26 mmol/L (22-30) 12/21/23 19:32 Anion Gap 5 mmol/L 12/21/23 19:32 BUN 7 mg/dL (7-17) 12/21/23 19:32 Creatinine 0.95 mg/dL (0.52-1.04) 12/21/23 19:32 Est GFR (CKD-EPI)AfAm >90 (>60 ml/min/1.73 sqM) 12/21/23 19:32 Est GFR (CKD-EPI)NonAf 79 (>60 ml/min/1.73 sqM) 12/21/23 19:32 Glucose 82 mg/dL (74-99) 12/21/23 19:32 Calcium 9.1 mg/dL (8.4-10.2) 12/21/23 19:32 Total Bilirubin 0.5 mg/dL (0.2-1.3) 12/21/23 19:32 AST 25 U/L (14-36) 12/21/23 19:32 ALT 22 U/L (4-34) 12/21/23 19:32 Alkaline Phosphatase 37 U/L (38-126) L 12/21/23 19:32 Total Protein 6.6 g/dL (6.3-8.2) 12/21/23 19:32 Albumin 3.8 g/dL (3.5-5.0) 12/21/23 19:32 Urine Color Yellow 12/22/23 10:44 Urine Appearance Turbid (Clear) H 12/22/23 10:44 Urine pH 6.0 (5.0-8.0) 12/22/23 10:44 Ur Specific [place] 1.021 (1.001-1.035) 12/22/23 10:44 Urine Protein 1+ (Negative) H 12/22/23 10:44 Urine Glucose (UA) Negative (Negative) 12/22/23 10:44 Urine Ketones Negative (Negative) 12/22/23 10:44 Urine Blood Trace (Negative) H 12/22/23 10:44 Urine Nitrite Negative (Negative) 12/22/23 10:44 Urine Bilirubin Negative (Negative) 12/22/23 10:44 Urine Urobilinogen <2.0 mg/dL (<2.0) 12/22/23 10:44 Ur Leukocyte Esterase Moderate (Negative) H 12/22/23 10:44 Urine RBC 8 /hpf (0-5) H 12/22/23 10:44 Urine WBC 12 /hpf (0-5) H 12/22/23 10:44 Ur Squamous Epith Cells 59 /hpf (0-4) H 12/22/23 10:44 Urine Bacteria Many /hpf (None) H 12/22/23 10:44 Urine Mucus Rare /hpf (None) H 12/22/23 10:44 Urine Yeast (Budding) Rare /hpf (None) H 12/22/23 10:44 Urine HCG, Qual Not Detected (Not Detectd) 12/22/23 10:44 Urine Opiates Screen Not Detected (NotDetected) 12/22/23 10:44 Ur Oxycodone Screen Not Detected (NotDetected) 12/22/23 10:44 Urine Methadone Screen Not Detected (NotDetected) 12/22/23 10:44 Ur Barbiturates Screen Not Detected (NotDetected) 12/22/23 10:44 U Tricyclic Antidepress Detected (NotDetected) H 12/22/23 10:44 Ur Phencyclidine Scrn Not Detected (NotDetected) 12/22/23 10:44 Ur Amphetamines Screen Detected (NotDetected) H 12/22/23 10:44 U Methamphetamines Scrn Detected (NotDetected) H 12/22/23 10:44 U Benzodiazepines Scrn Not Detected (NotDetected) 12/22/23 10:44 Urine Cocaine Screen Not Detected (NotDetected) 12/22/23 10:44 U Marijuana (THC) Screen Detected (NotDetected) H 12/22/23 10:44 SARS-CoV-2 (PCR) Not Detected (Not Detectd) 12/21/23 13:00 12/24/23 10:35 Psychiatric Evaluation Identifying Data: Ms. Edgar is 33 years old, single, white female, who lives in [place], [place]. Chief Complaint: I took overdose of Heroin History of Psychiatric Illness- The patient noted that she took overdose of pills because she was mad for not taking her Celexa, Seroquel and Clonidine. She gets her medications from Dr. Olsen at [facility]. She has been him for a year. The patient was started on these medications in skilled nursing and then continued them with Dr. Olsen. The patient noted that she was diagnosed with ADHD at age 7. At age 9 she was diagnosed with bipolar disorder. She was prescribed Adderall till age 27. The patient noted that she was in special ed classes. The patient noted that she was never given any medications for Bipolar medications. She was only treated for ADHD. The patient noted that around age 21 she started treatment for Bipolar disorder. The patient treated with Prozac and Zoloft. As per patient these medications did not work. She quit seeking any help. She fought with depression on her own. She had symptoms of sadness, loss of motivation, decreased appetite, decreased sleep, loss of interest, anxiety, feeling helpless hopeless and loss of desire to live. The patient noted that around age 25 she got in to Heroin. She had not done any drugs or alcohol. She smoked Marijuana once in a while. She was in skilled nursing for 6 months from February, to July, for possession of Heroin. It was in the [facility], she was prescribe her current medications. She indicates that these medications work good for her. The patient noted that she was never hospitalized to a psychiatric hospital in the past. She has no history of suicidal ideations or Homicidal ideations in the past. Her treatment was as an out-pt off and on. Past Psychiatric History: As stated above. Past Medication History: As stated above. Leading questions: The patient denied Depression and Anxiety. Denied SI or HI. Denied symptoms consistent with psychosis: Drugs and alcohol history: Heroin abuse, occasional use of marijuana. Tobacco use: pack a day Past Medical history: None Family History of Psychiatric Disorder: The patient denied. Social History and Family History: The patient was born and raised in [place], [place]. She grew-up with three siblings. She finished HS in special ed classes. 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 \ OTC: None Allergies: None Objective: MSE: Alert and attentive. Orientation times three Dressed and Groomed: Appropriately. Pleasant and cooperative. Psychomotor Activity: Normal. Speech: Normal in tone, quality, and quantity. Mood: I am feeling fine Affect: Appropriate to the mood. SI or HI: None. Perceptual disturbance: None. Thought Content: No paranoia or other delusional thinking noted. Thought Process: Normal. Cognition: Intact Judgment and Insight: Good AIMS: Normal Labs: Available labs reviewed. Diagnosis: Depressive disorder, unspecified. Plan and Recommendations: Continue current Medications. Monitor MS and side effects of medications and adjust medications accordingly. Provide supportive psychotherapy and psychoeducation. The patient provided psychoeducation. The patient provided with substance abuse counselling and advised to attend AA/NA Smoke cessation therapy. The patient to attend taylor Milieu. TSH, Lipid Profile, HbA1c, EKG, Medication Consent with explanation of risk/benefits and side effects: Explained and obtained.
[2023-12-24] MEDS: NICOTINE 14MG/24HR PATCH TRANSDERM SCH (12:04)
--- NOTE | 2023-12-25 16:37 | P.PN ---
Progress Note - Text Follow-up Mediation Review Chief Complaint: I am doing good Subjective: The patient noted that everything is going good. She stays in the room most of the time. She does not attend taylor activities. She has noted attended any groups. The patient encouraged to go to groups. The patient did not report any side effects. The patient has not attending the groups. The interaction with staff and peers is limited. The patient is compliant with treatment recommendations. Leading questions: The patient mild admitted to Depression and Anxiety. Denied SI or HI. Denied symptoms consistent with psychosis Sleep and Appetite: Fair. Change in family/ living/job/financial/daily routine: No change. Change in medical condition: No change. Change in medications: No change. Side effects from Medications: None. Objective- MSE: Alert and attentive. Orientation times three. Dressed and Groomed: Appropriately. Pleasant and cooperative. Psychomotor Activity: Normal. Speech: Normal in tone, quality, and quantity. Mood: Good. Affect: Appropriate to the mood. SI or HI: None. Perceptual disturbance: None. Thought Content: No paranoia or other delusional thinking noted. Thought Process: Normal. Cognition: Intact Judgment and Insight: Fair. AIMS: Normal. Labs: No new labs. Diagnosis: No change. Plan and Recommendations: Continue current Medications. Monitor MS and side effects of medications and adjust medications accordingly. Provide supportive psychotherapy. The patient provided psychoeducation and advised The patient provided Substance abuse counseling. Smoke cessation therapy. The patient to attend taylor activities. TSH, Lipid Profile, HbA1c, EKG. Medication Consent with explanation of risk/benefits and side effects: Explained and obtained.
[2023-12-26 12:57] LABS: Chol/HDL Ratio 3.86 Ratio; LDL Cholesterol,Calculated 107.9 mg/dL (0.0-131.0); VLDL Calculation 18.76 mg/dL (5.00-40.00)
--- NOTE | 2023-12-26 13:50 | P.PN ---
Progress Note - Text Progress Note Date: 12/26/23 Interval history: Patient was was directable and agreeable to speak with sba underwriter. She reports her mood is "really good", reports good sleep and appetite. At this time patient denies any suicidal or homicidal ideation, intent or plan. Denies any auditory or visual hallucinations. Patient denies any side effects from the medications and has been compliant with meds. She is hopeful for discharge tomorrow. Mental status exam: General Appearance: Patient appears to be stated age, poor dentition, dressed in clean casual attire, average hygiene/grooming Behavior: No agitated behavior. Patient is calm and directable. Speech: Patient's speech is fluent and non-pressured. Mood/Affect: Mood is "really good", affect is congruent and constricted. Suicidality/Homicidality: Patient denies having any suicidal or homicidal ideation intent or plan. Perceptions: Patient denies any auditory or visual hallucinations. Though content/process: There is no evidence of any delusional thought content and thought process is linear and goal-directed. Memory and concentration: AOX3, grossly intact for the purposes of this session Judgment and insight: improving mildly Assessment/Plan: Continue with current diagnosis. Patient continues to meet criteria for inpatient psychiatric admission for symptom stabilization and safety. Patient will be maintained on current psychotropic medication regimen. Monitor for medication compliance and for any psychotropic medication side ef fects. Will continue to monitor ongoing response to treatment. Encouraged participation in milieu. Consider discharge in the next 1-2 days if continues to stabilize.
--- NOTE | 2023-12-27 11:42 | P.PN ---
Progress Note - Text Progress Note Date: 12/27/23 Follow-up Mediation Review Chief Complaint: I am doing better Subjective: The patient noted that she has been feeling motivated and getting out of the room. She reported attending groups and interacting with peers and staff. She feels that she is making progress. She had no new complaints. She is tolerating medications well. The patient did not report any side effects. The patient has been attended the groups. The interaction with staff and peers is improved. The patient is compliant with treatment recommendations. Leading questions: The patient admitted to Depression and Anxiety. Denied SI or HI. Denied symptoms consistent with psychosis Sleep and Appetite: Fair. Change in family/ living/job/financial/daily routine: No change. Change in medical condition: No change. Change in medications: No change. Side effects from Medications: None. Objective- MSE: Alert and attentive. Orientation times three. Dressed and Groomed: Appropriately. Pleasant and cooperative. Psychomotor Activity: Normal. Speech: Normal in tone, quality, and quantity. Mood: Depressed and anxious. Affect: Appropriate to the mood. SI or HI: None. Perceptual disturbance: None. Thought Content: No paranoia or other delusional thinking noted. Thought Process: Normal. Cognition: Intact Judgment and Insight: Fair. AIMS: Normal. Labs: TSH to be repeated. Diagnosis: No change. Plan and Recommendations: Continue current Medications. Monitor MS and side effects of medications and adjust medications accordingly. Provide supportive psychotherapy. The patient provided psychoeducation and advised The patient provided Substance abuse counseling. Smoke cessation therapy. The patient to attend taylor activities. Medication Consent with explanation of risk/benefits and side effects: Explained and obtained.
--- NOTE | 2023-12-28 17:09 | P.PN ---
Progress Note - Text Progress Note Date: 12/28/23 Interval history: Patient was found isolating to her bed and was directable and agreeable to speak with repairer typewriter. She reports her mood is "good", reports good sleep and appetite. At this time, patient denies any suicidal or homicidal ideation, intent or plan. Denies any auditory or visual hallucinations. Patient denies any side effects from the medications and has been compliant with meds. She is hopeful for discharge Saturday. Mental status exam: General Appearance: Patient appears to be stated age, poor dentition, dressed in clean casual attire, average hygiene/grooming Behavior: No agitated behavior. Patient is calm and directable. Speech: Patient's speech is fluent and non-pressured. Mood/Affect: Mood is "good", affect is congruent and constricted. Suicidality/Homicidality: Patient denies having any suicidal or homicidal ideation intent or plan. Perceptions: Patient denies any auditory or visual hallucinations. Though content/process: There is no evidence of any delusional thought content and thought process is linear and goal-directed. Memory and concentration: AOX3, grossly intact for the purposes of this session Judgment and insight: improving mildly Assessment/Plan: Continue with current diagnosis. [facility] and [facility]. Patient will be maintained on current psychotropic medication regimen. Monitor for medication compliance and for any psychotropic medication side effects. Will continue to monitor ongoing response to treatment. Encouraged participation in milieu. Consider discharge in the next 1-2 days if continues to stabilize.
[2023-12-28] MEDS: MICONAZOLE 2% VAGINAL CREAM 45 GM TUBE/KIT VAGINAL SCH (21:46)
[2023-12-29 08:12] VITALS: RESP 17
[2023-12-29 08:36] LABS: Appearance,Urine Turbid (Clear); Bacteria,Urine Moderate /hpf; Bilirubin,Urine Negative (Negative); Blood,Urine Negative (Negative); Color,Urine Yellow; Glucose,Urine (UA) Negative (Negative); Ketones,Urine Negative (Negative); Leukocyte Esterase,Urine Large (Negative); Mucus,Urine Many /hpf; Nitrite,Urine Negative (Negative); PH, Urine 6.5 (5.0-8.0); Protein,Urine Trace (Negative); RBC,Urine 1 /hpf (0-5); Specific Gravity,Urine 1.024 (1.001-1.035); Squamous Epithelial Cell,Urine 17 /hpf (0-4); WBC,Urine 10 /hpf (0-5)
[2023-12-29 14:55] LABS: Appearance,Urine Cloudy (Clear); Bacteria,Urine Occasional /hpf; Bilirubin,Urine Negative (Negative); Blood,Urine Negative (Negative); Color,Urine Colorless; Glucose,Urine (UA) Negative (Negative); Ketones,Urine Negative (Negative); Leukocyte Esterase,Urine Moderate (Negative); Mucus,Urine Rare /hpf; Nitrite,Urine Negative (Negative); Protein,Urine Negative (Negative); RBC,Urine 1 /hpf (0-5); Specific Gravity,Urine 1.009 (1.001-1.035); Squamous Epithelial Cell,Urine 15 /hpf (0-4); Urobilinogen,Urine <2.0 mg/dL (<2.0); WBC,Urine 5 /hpf (0-5)
[2023-12-29] MEDS: QUEtiapine 25 MG TAB PO STA (15:43)
--- NOTE | 2023-12-29 15:43 | P.PN ---
Progress Note - Text Progress Note Date: 12/29/23 Interval history: Patient was found isolating to her bed again today and was directable and agreeable to speak with remote mortgage underwriter. She reports her mood is "anxious". She reports she didn't sleep well last night, reports she was tossing and turning; would a small increase to her Seroquel dose. At this time, patient denies any suicidal or homicidal ideation, intent or plan. Denies any auditory or visual hallucinations. Patient denies any side effects from the medications and has b een compliant with meds. She is hopeful for discharge Saturday and reports she has a job interview on Saturday. Mental status exam: General Appearance: Patient appears to be stated age, poor dentition, dressed in clean casual attire, average hygiene/grooming Behavior: No agitated behavior. Patient is calm and directable. Sitting up in bed. Speech: Patient's speech is fluent and non-pressured. Mood/Affect: Mood is "anxious", affect is congruent and constricted. Suicidality/Homicidality: Patient denies having any suicidal or homicidal ideation intent or plan. Perceptions: Patient denies any auditory or visual hallucinations. Though content/process: There is no evidence of any delusional thought content and thought process is linear and goal-directed. Memory and concentration: AOX3, grossly intact for the purposes of this session Judgment and insight: Improving mildly Assessment/Plan: Continue with current diagnosis. Patient continues to meet criteria for inpatient psychiatric admission for symptom stabilization and safety. Increase Seroquel from 75 mg BID to [address] if drowsy. Monitor for medication compliance and for any psychotropic medication side effects. Will continue to monitor ongoing response to treatment. Encouraged participation in milieu. Consider discharge Saturday if continues to stabilize.
[2023-12-29] MEDS: QUEtiapine 100 MG TAB PO SCH (20:02)
[2023-12-29] MEDS: NITROFURANTOIN MONOHYD/M-CRYST 100 MG CAP PO SCH (20:03)
[2023-12-30 08:18] VITALS: BP 113/60; PULSE 91; TEMP 96.1
--- NOTE | 2023-12-30 17:17 | P.DS ---
Providers Date of admission: 12/23/23 17:36 Expected date of discharge: 12/30/23 Attending physician: Hieu Mcadams MD Consults: 12/23/23 17:40 Consult Physician Routine Consulting Provider: Andrew Bailey Consult Reason/Comments: H&P and medical Do you want consulting provider notified?: Yes Primary care physician: Stated None - Discharge Diagnosis(es) (1) Major depressive disorder, recurrent, unspecified Status: Acute Priority: High Plan - Discharge Summary Discharge Rx Participant: Yes New Discharge Prescriptions: New Nitrofurantoin Monohyd/M-Cryst [Macrobid] 100 mg PO BID 10 Days #20 cap Continue Citalopram Hydrobromide [CeleXA] 40 mg PO HS 15 Days #15 tab QUEtiapine FUMARATE [SEROquel XR] 150 mg PO HS 15 Days #15 tab Changed cloNIDine HCL 0.1 mg PO HS 15 Days #15 tab Discharge Medication List Citalopram Hydrobromide [CeleXA] 40 mg PO HS 15 Days #15 tab 12/30/23 [Rx] Nitrofurantoin Monohyd/M-Cryst [Macrobid] 100 mg PO BID 10 Days #20 cap 12/30/23 [Rx] QUEtiapine FUMARATE [SEROquel XR] 150 mg PO HS 15 Days #15 tab 12/30/23 [Rx] cloNIDine HCL 0.1 mg PO HS 15 Days #15 tab 12/30/23 [Rx] Follow up Appointment(s)/Referral(s): [facility] [Outside] - 01/10/24 10:00 am ([facility] - 1 Week Patient Instructions/Handouts: Depression (DC) Activity/Diet/Wound Care/Special Instructions: Avoid the use of street drugs and alcohol. Take all medications as prescribed. When you are in need of refills on your medications, please contact your medical provider and/or outpatient psychiatrist/provider to have this done. Please go to your scheduled outpatient appointment for aftercare treatment. If symptoms return or become worse, call the crisis line at and/or go to the nearest emergency room for evaluation. National Suicide Hotline 980 Discharge Disposition: HOME SELF-CARE
== END 2023-12-30 14:37 | disposition home or self-care (01) | DRG 751 ==
LOC: EC 08:29 → 3MHU 12-23 17:36
PROVIDERS: ADMIT Psychiatry & Neurology Psychiatry; ATTEND Psychiatry & Neurology Psychiatry
DX: F33.9 Major depressive disorder, recurrent, unspecified (principal); T40.1X2A Poisoning by heroin, intentional self-harm, initial encounter; F90.9 Attention-deficit hyperactivity disorder, unspecified type; F17.210 Nicotine dependence, cigarettes, uncomplicated; F11.10 Opioid abuse, uncomplicated; B18.2 Chronic viral hepatitis C; F19.10 Other psychoactive substance abuse, uncomplicated; Z71.51 Drug abuse counseling and surveillance of drug abuser; N39.0 Urinary tract infection, site not specified; Z86.14 Personal history of Methicillin resistant Staphylococcus aureus infection; Z65.3 Problems related to other legal circumstances; Z86.19 Personal history of other infectious and parasitic diseases
CPT/HCPCS: 36415; 80053; 80061; 80306; 81001; 81025; 82075; 83036; 84443; 85025; 87635; 99285